=== PATIENT | male | born 1940 | race Caucasian/White ===

== ENCOUNTER 2019-05-19 16:13 | Observation (INO) | payer MEDICARE, BC ==
[2019-05-19] MEDS ORDERED: SODIUM CHLORIDE 0.9% 500 ML 500 ML IV STA (16:31)
[2019-05-19] MEDS ORDERED: SODIUM CHLORIDE 0.9% 1,000 ML IV STA ×2 (16:31)
[2019-05-19] MEDS ORDERED: DEXAMETHASONE SOD PHOSPHATE 10 MG/ML 1 ML VIAL IV STA (16:32)
[2019-05-19] MEDS ORDERED: MORPHINE SULFATE 4 MG/ML SYRINGE IVP STA (17:01)
[2019-05-19 17:27] LABS: HCT 51.3 % (39.0-53.0); HGB 17.8 gm/dL (13.0-17.5); MCH 32.2 pg (25.0-35.0); MCHC 34.8 g/dL (31.0-37.0); MCV 92.7 fL (80.0-100.0); Mean Platelet Volume 8.2; Platelet Count 204 k/uL (150-450); RBC 5.53 m/uL (4.30-5.90); RDW 12.9 % (11.5-15.5); WBC 18.3 k/uL (3.8-10.6)
[2019-05-19 17:34] LABS: ALT 20 U/L (21-72); AST 39 U/L (17-59); African American GFR (CKD) >90 (>60 ml/min/1.73 sqM); Albumin 4.9 g/dL (3.5-5.0); Alkaline Phosphatase 65 U/L (38-126); Anion Gap 13 mmol/L; Blood Urea Nitrogen 21 mg/dL (9-20); Calcium 9.9 mg/dL (8.4-10.2); Carbon Dioxide 25 mmol/L (22-30); Chloride 104 mmol/L (98-107); Glucose 115 mg/dL (74-99); Magnesium 2.2 mg/dL (1.6-2.3); Phosphorus 2.7 mg/dL (2.5-4.5); Sodium 142 mmol/L (137-145); Total Bilirubin 1.3 mg/dL (0.2-1.3); Total Protein 9.1 g/dL (6.3-8.2)
[2019-05-19 17:35] LABS: Potassium 4.2 mmol/L (3.5-5.1)
[2019-05-19 17:45] LABS: C Reactive Protein 20.8 mg/L (<10.0)
[2019-05-19 17:55] LABS: Lymphocytes # (M) 6.95 k/uL (1.0-4.8); Neutrophils % (M) 62 %; Nucleated Red Blood Cells 0 /100 WBC (0-0); Total Cells Counted 100
--- NOTE | 2019-05-19 18:10 | XR ---
EXAMINATION TYPE: XR chest 2V DATE OF EXAM: 05/19/2019 COMPARISON: NONE HISTORY: Fever and cough TECHNIQUE: Frontal and lateral views of the chest are obtained. FINDINGS: Heart size is normal. 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 Lungs are clear. There is no heart failure. There is no pleural effusion. Bony thorax appears intact. IMPRESSION: No active cardiopulmonary disease. Aneurysmal changes of the aortic arch.
--- NOTE | 2019-05-19 18:15 | ED ---
Headache HPI - General Chief Complaint: Headache Stated Complaint: POSS VIRAL MENANGITIS, SENT BY DR AVILA Time Seen by Provider: 05/19/19 16:28 Source: RN notes reviewed, old records reviewed Mode of arrival: ambulatory Limitations: no limitations - History of Present Illness Initial Comments: This is a 78-year-old male the ER for evaluation. Patient resents today for evaluation regards to headache. Occasional fevers. Sore throat. Neck pains worse the last 2 days. Patient has not been feeling himself for about a week. This patient was seen by his primary care sent ER for evaluation of headache. Patient has no recent travel history or sick contacts. Patient otherwise the neck pain not complaining of a sore throat no cough no congestion no nausea vomiting or diarrhea MD Complaint: headache, other (Neck pain) -: week(s) Onset Description: gradual Location: neck Severity: moderate Severity scale (1-10): 7 Quality: aching, sharp Consistency: constant Improves With: nothing Worsens With: none Associated Symptoms: fever, neck stiffness, weakness Other Symptoms: malaise Treatments Prior to Arrival: none - Related Data Home Medications Medication Instructions Recorded Confirmed Amino Acids 700 mg PO BID 05/19/19 05/19/19 Aspirin [Adult Low Dose Aspirin EC] 162 mg PO DAILY 05/19/19 05/19/19 Atorvastatin [Lipitor] 40 mg PO DAILY 05/19/19 05/19/19 Lisinopril-Hctz 20-12.5 mg 1 tab PO DAILY 05/19/19 05/19/19 [Zestoretic 20-12.5] Multivitamins, Thera [Multivitamin 1 tab PO DAILY 05/19/19 05/19/19 (formulary)] Allergies Allergy/AdvReac Type Severity Reaction Status Date / Time Tetanus Vaccines and Toxoid Allergy Unknown Verified 05/19/19 16:37 Review of Systems ROS Statement: Those systems with pertinent positive or pertinent negative responses have been documented in the HPI. ROS Other: All systems not noted in ROS Statement are negative. Past Medical History Past Medical History: Coronary Artery Disease (CAD), Hyperlipidemia, Hypertension History of Any Multi-Drug Resistant Organisms: None Reported Past Surgical History: Coronary Bypass/CABG, Heart Catheterization With Stent Additional Past Surgical History / Comment(s): Triple A Past Psychological History: No Psychological Hx Reported Smoking Status: Never smoker Past Alcohol Use History: Occasional Past Drug Use History: None Reported General Exam Limitations: no limitations General appearance: alert, in no apparent distress Head exam: Present: atraumatic, normocephalic, normal inspection Eye exam: Present: normal appearance, PERRL, EOMI. Absent: scleral icterus, conjunctival injection, periorbital swelling ENT exam: Present: normal exam, mucous membranes moist Neck exam: Absent: tenderness, meningismus, full ROM (Decreased range of motion patient's neck does appear to be painful when he moves his head, negative Kernig negative Brudzinski), lymphadenopathy Respiratory exam: Present: normal lung sounds bilaterally. Absent: respiratory distress, wheezes, rales, rhonchi, stridor Cardiovascular Exam: Present: regular rate, normal rhythm, normal heart sounds. Absent: systolic murmur, diastolic murmur, rubs, gallop, clicks GI/Abdominal exam: Present: soft, normal bowel sounds. Absent: distended, tenderness, guarding, rebound, rigid Extremities exam: Present: normal inspection, full ROM, normal capillary refill. Absent: tenderness, pedal edema, joint swelling, calf tenderness Back exam: Present: normal inspection Neurological exam: Present: alert, oriented X3, CN II-XII intact Psychiatric exam: Present: normal affect, normal mood Skin exam: Present: warm, dry, intact, normal color. Absent: rash Course Vital Signs 05/19/19 05/19/19 05/19/19 16:23 19:37 20:55 Temperature 99.1 F Pulse Rate 63 89 71 Respiratory 20 18 18 Rate Blood Pressure 154/81 131/88 120/78 O2 Sat by Pulse 99 96 98 Oximetry - Reevaluation(s) Reevaluation #1: 05/19/19 18:14 Medical record is reviewed Reevaluation #2: 05/19/19 22:14 patient feeling better and neck pain is controlled Procedures - Lumbar Puncture Consent Obtained: verbal consent Indication for Procedure: headache, fever work up Patient Position: sitting upright/leaning forward Skin Prep: Povidone-Iodine 1% Local Anesthetic Used: Lidocaine 1% Spinal Needle Gauge: 24G Spinal Needle Length: 3in Interspace Used: L3-L4 Fluid Initially Obtained: clear Complications: none Patient Tolerated Procedure: well Medical Decision Making - Medical Decision Making 78 male the ER for evaluation patient resents today for evaluation of neck pain fever 7 to rule out meningitis CSF is clean, patient be admitted for infectious disease consult neck pain - Lab Data Result diagrams: 05/19/19 16:50 05/19/19 16:50 Lab Results 05/19/19 05/19/19 05/19/19 Range/Units 16:50 16:50 16:50 WBC 18.3 H (3.8-10.6) k/uL RBC 5.53 (4.30-5.90) m/uL Hgb 17.8 H (13.0-17.5) gm/dL Hct 51.3 (39.0-53.0) % MCV 92.7 (80.0-100.0) fL MCH 32.2 (25.0-35.0) pg MCHC 34.8 (31.0-37.0) g/dL RDW 12.9 (11.5-15.5) % Plt Count 204 (150-450) k/uL Neutrophils % (Manual) 62 % Lymphocytes % (Manual) 38 % Neutrophils # (Manual) 11.35 H (1.3-7.7) k/uL Lymphocytes # (Manual) 6.95 H (1.0-4.8) k/uL Nucleated RBCs 0 (0-0) /100 WBC Manual Slide Review Performed RBC Morphology Normal Sodium 142 (137-145) mmol/L Potassium 4.2 (3.5-5.1) mmol/L Chloride 104 (98-107) mmol/L Carbon Dioxide 25 (22-30) mmol/L Anion Gap 13 mmol/L BUN 21 H (9-20) mg/dL Creatinine 0.68 (0.66-1.25) mg/dL Est GFR (CKD-EPI)AfAm >90 (>60 ml/min/1.73 sqM) Est GFR (CKD-EPI)NonAf >90 (>60 ml/min/1.73 sqM) Glucose 115 H (74-99) mg/dL Lactic Ac Sepsis Rflx Plasma Lactic Acid Jose Ramon (0.7-2.0) mmol/L Calcium 9.9 (8.4-10.2) mg/dL Phosphorus 2.7 (2.5-4.5) mg/dL Magnesium 2.2 (1.6-2.3) mg/dL Total Bilirubin 1.3 (0.2-1.3) mg/dL AST 39 (17-59) U/L ALT 20 L (21-72) U/L Alkaline Phosphatase 65 (38-126) U/L C-Reactive Protein 20.8 H (<10.0) mg/L Total Protein 9.1 H (6.3-8.2) g/dL Albumin 4.9 (3.5-5.0) g/dL Urine Color Urine Appearance (Clear) Urine pH (5.0-8.0) Ur Specific [place] (1.001-1.035) Urine Protein (Negative) Urine Glucose (UA) (Negative) Urine Ketones (Negative) Urine Blood (Negative) Urine Nitrite (Negative) Urine Bilirubin (Negative) Urine Urobilinogen (<2.0) mg/dL Ur Leukocyte Esterase (Negative) CSF Tube Number CSF Volume CSF Appearance CSF Color CSF RBC (0-10) u/L CSF Tot Nucleated Cells (0-5) u/L CSF Crenated Cells % CSF Fresh RBCs % CSF Glucose (40-70) mg/dL CSF Total Protein (12-60) mg/dL Influenza Type A RNA Not Detected (Not Detectd) Influenza Type B (PCR) Not Detected (Not Detectd) Group A Strep Rapid (Negative) 05/19/19 05/19/19 05/19/19 Range/Units 16:50 16:50 17:33 WBC (3.8-10.6) k/uL RBC (4.30-5.90) m/uL Hgb (13.0-17.5) gm/dL Hct (39.0-53.0) % MCV (80.0-100.0) fL MCH (25.0-35.0) pg MCHC (31.0-37.0) g/dL RDW (11.5-15.5) % Plt Count (150-450) k/uL Neutrophils % (Manual) % Lymphocytes % (Manual) % Neutrophils # (Manual) (1.3-7.7) k/uL Lymphocytes # (Manual) (1.0-4.8) k/uL Nucleated RBCs (0-0) /100 WBC Manual Slide Review RBC Morphology Sodium (137-145) mmol/L Potassium (3.5-5.1) mmol/L Chloride (98-107) mmol/L Carbon Dioxide (22-30) mmol/L Anion Gap mmol/L BUN (9-20) mg/dL Creatinine (0.66-1.25) mg/dL Est GFR (CKD-EPI)AfAm (>60 ml/min/1.73 sqM) Est GFR (CKD-EPI)NonAf (>60 ml/min/1.73 sqM) Glucose (74-99) mg/dL Lactic Ac Sepsis Rflx Y Plasma Lactic Acid Jose Ramon 2.1 H* (0.7-2.0) mmol/L Calcium (8.4-10.2) mg/dL Phosphorus (2.5-4.5) mg/dL Magnesium (1.6-2.3) mg/dL Total Bilirubin (0.2-1.3) mg/dL AST (17-59) U/L ALT (21-72) U/L Alkaline Phosphatase (38-126) U/L C-Reactive Protein (<10.0) mg/L Total Protein (6.3-8.2) g/dL Albumin (3.5-5.0) g/dL Urine Color Urine Appearance (Clear) Urine pH (5.0-8.0) Ur Specific [place] (1.001-1.035) Urine Protein (Negative) Urine Glucose (UA) (Negative) Urine Ketones (Negative) Urine Blood (Negative) Urine Nitrite (Negative) Urine Bilirubin (Negative) Urine Urobilinogen (<2.0) mg/dL Ur Leukocyte Esterase (Negative) CSF Tube Number CSF Volume CSF Appearance CSF Color CSF RBC (0-10) u/L CSF Tot Nucleated Cells (0-5) u/L CSF Crenated Cells % CSF Fresh RBCs % CSF Glucose (40-70) mg/dL CSF Total Protein (12-60) mg/dL Influenza Type A RNA (Not Detectd) Influenza Type B (PCR) (Not Detectd) Group A Strep Rapid Negative (Negative) 05/19/19 05/19/19 05/19/19 Range/Units 19:34 20:07 21:13 WBC (3.8-10.6) k/uL RBC (4.30-5.90) m/uL Hgb (13.0-17.5) gm/dL Hct (39.0-53.0) % MCV (80.0-100.0) fL MCH (25.0-35.0) pg MCHC (31.0-37.0) g/dL RDW (11.5-15.5) % Plt Count (150-450) k/uL Neutrophils % (Manual) % Lymphocytes % (Manual) % Neutrophils # (Manual) (1.3-7.7) k/uL Lymphocytes # (Manual) (1.0-4.8) k/uL Nucleated RBCs (0-0) /100 WBC Manual Slide Review RBC Morphology Sodium (137-145) mmol/L Potassium (3.5-5.1) mmol/L Chloride (98-107) mmol/L Carbon Dioxide (22-30) mmol/L Anion Gap mmol/L BUN (9-20) mg/dL Creatinine (0.66-1.25) mg/dL Est GFR (CKD-EPI)AfAm (>60 ml/min/1.73 sqM) Est GFR (CKD-EPI)NonAf (>60 ml/min/1.73 sqM) Glucose (74-99) mg/dL Lactic Ac Sepsis Rflx Plasma Lactic Acid Jose Ramon 0.9 (0.7-2.0) mmol/L Calcium (8.4-10.2) mg/dL Phosphorus (2.5-4.5) mg/dL Magnesium (1.6-2.3) mg/dL Total Bilirubin (0.2-1.3) mg/dL AST (17-59) U/L ALT (21-72) U/L Alkaline Phosphatase (38-126) U/L C-Reactive Protein (<10.0) mg/L Total Protein (6.3-8.2) g/dL Albumin (3.5-5.0) g/dL Urine Color Light Yellow Urine Appearance Clear (Clear) Urine pH 6.0 (5.0-8.0) Ur Specific [place] 1.033 (1.001-1.035) Urine Protein Negative (Negative) Urine Glucose (UA) Negative (Negative) Urine Ketones 1+ H (Negative) Urine Blood Negative (Negative) Urine Nitrite Negative (Negative) Urine Bilirubin Negative (Negative) Urine Urobilinogen <2.0 (<2.0) mg/dL Ur Leukocyte Esterase Negative (Negative) CSF Tube Number 1 CSF Volume 1 CSF Appearance Clear CSF Color Colorless CSF RBC 11 H (0-10) u/L CSF Tot Nucleated Cells 1 (0-5) u/L CSF Crenated Cells 10 % CSF Fresh RBCs 90 % CSF Glucose 71 H (40-70) mg/dL CSF Total Protein 63 H (12-60) mg/dL Influenza Type A RNA (Not Detectd) Influenza Type B (PCR) (Not Detectd) Group A Strep Rapid (Negative) - Radiology Data Radiology results: report reviewed (CT brain C spine - CT soft tissue neck ... CXR is negative for acute disease), image reviewed Disposition Clinical Impression: Neck pain, Fever, Leukocytosis Disposition: ADMITTED IP TO THIS HOSP Condition: Fair Is patient prescribed a controlled substance at d/c from ED?: No Referrals: Lucio Avila MD [Primary Care Provider] - 1-2 days
--- NOTE | 2019-05-19 19:20 | CT ---
EXAMINATION TYPE: CT brain wo con DATE OF EXAM: 05/19/2019 COMPARISON: None HISTORY: ALFARO and neck stiffness x4 days CT DLP: 1111 mGycm Automated exposure control for dose reduction was used. FINDINGS: There is cerebral atrophy. There is no mass effect nor midline shift. There is no sign of intracrania l hemorrhage. There is white matter hypodensity left frontal lobe and left anterior parietal lobe con sistent with chronic small vessel ischemia. There is hypodensity also in the white matter of the occi pital lobes. There is increased density in the middle cerebral arteries bilaterally. The calvarium is intact. IMPRESSION: CEREBRAL ATROPHY AND CHRONIC SMALL VESSEL ISCHEMIA. HIGH ATTENUATION IN THE MIDDLE CEREBRAL ARTERIES COULD RELATE TO SLOW FLOW OR EVEN ARTERIAL THROMBOSIS. NO INTRACRANIAL HEMORRHAGE.
--- NOTE | 2019-05-19 19:28 | CT ---
EXAMINATION TYPE: CT soft tissue neck w con DATE OF EXAM: 05/19/2019 6:59 PM COMPARISON: HISTORY: ALFARO and neck stiffness x4 days CT DLP: 300 mGycm Automated exposure control for dose reduction was used. CONTRAST: CT scan of the neck is performed following with IV Contrast, patient injected with 100 mL of Isovue 3 00. Axial images are obtained, coronal and sagittal reformatted images are reviewed. FINDINGS: There is aneurysm of the aortic arch. The ascending aorta measures up to 5 cm. There is no sign of di ssection. There is normal branching pattern of the great vessels. There is arterial flow in the subcl lazaro arteries. There is arterial flow in the carotid and vertebral arteries bilaterally. Left verteb ral artery is larger than the right. There is large right jugular vein. Thyroid gland is symmetric. There is no significant cervical adenopathy. Parotid glands are symmetric . The submandibular salivary glands are symmetric. Epiglottis appears normal. Subglottic trachea appears normal. Tonsils appear normal. The tongue appea rs normal. There is narrowing of the disc spaces at C5-6 C6-7. Vertebra have normal alignment. There is no cervical spine fracture. Skull base is intact. There is mucosal thickening in the maxillary and ethmoid air cells. IMPRESSION: Negative CT scan of the cervical soft tissues. Atherosclerotic vascular disease. There is more than 5 0% stenosis of the origin of the left internal carotid artery. 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
[2019-05-19 19:50] LABS: Appearance,Urine Clear (Clear); Bilirubin,Urine Negative (Negative); Blood,Urine Negative (Negative); Color,Urine Light Yellow; Glucose,Urine (UA) Negative (Negative); Ketones,Urine 1+ (Negative); Leukocyte Esterase,Urine Negative (Negative); Nitrite,Urine Negative (Negative); Protein,Urine Negative (Negative); Specific Gravity,Urine 1.033 (1.001-1.035); Urobilinogen,Urine <2.0 mg/dL (<2.0)
[2019-05-19] MEDS ORDERED: KETOROLAC 30 MG/ML 1 ML VIAL IVP STA (19:50)
[2019-05-19] MEDS ORDERED: MORPHINE SULFATE 4 MG/ML SYRINGE IVP PRN (19:50)
[2019-05-19 21:45] LABS: Glucose,CSF 71 mg/dL (40-70); Total Protein,CSF 63 mg/dL (12-60)
[2019-05-19 21:55] LABS: Appearance,CSF Clear; CSF Tube Volume 1
[2019-05-19 21:56] LABS: Nucleated Cells, CSF 1 u/L (0-5); Red Blood Cell,CSF 11 u/L (0-10)
[2019-05-19 21:59] LABS: CSF Tube Number 1
[2019-05-19 22:00] LABS: Red Blood Cell, CSF Fresh 90 %
[2019-05-19 22:01] LABS: Red Blood Cell, CSF Crenated 10 %
[2019-05-19] MEDS: SODIUM CHLORIDE 0.9% 1,000 ML IV SCH (22:58)
[2019-05-19] MEDS: SODIUM CHLORIDE 0.9% 500 ML 500 ML IV SCH ×2 (23:04→23:51)
[2019-05-19 23:48] VITALS: BMI 24.6
[2019-05-20] MEDS: SODIUM CHLORIDE 0.9% 1,000 ML IV SCH ×3 (05:13→22:54)
[2019-05-20] MEDS ORDERED: ENOXAPARIN 40 MG/0.4 ML SYRINGE SQ SCH (09:00)
[2019-05-20 12:21] LABS: HCT 41.4 % (39.0-53.0); MCH 32.1 pg (25.0-35.0); MCHC 34.3 g/dL (31.0-37.0); MCV 93.7 fL (80.0-100.0); Mean Platelet Volume 7.3; Platelet Count 225 k/uL (150-450); RBC 4.41 m/uL (4.30-5.90); RDW 12.9 % (11.5-15.5); WBC 17.7 k/uL (3.8-10.6)
[2019-05-20 12:23] LABS: HGB 14.2 gm/dL (13.0-17.5)
[2019-05-20 13:21] LABS: Band Neutrophils % 1 %; Lymphocytes # (M) 7.26 k/uL (1.0-4.8); Monocytes # (M) 1.42 k/uL (0-1.0); Neutrophils % (M) 50 %; Nucleated Red Blood Cells 0 /100 WBC (0-0); Total Cells Counted 100
[2019-05-20 13:40] LABS: Erythrocyte Sedimentation Rate 24 mm/hr (0-15)
--- NOTE | 2019-05-20 14:48 | P.HPIM ---
History of Present Illness H&P Date: 05/20/19 78 years old male with a shot of Dr. Avila with past medical history of coronary artery disease state "CABG, hyperlipidemia, hypertension comes in after being evaluated as outpatient by Dr. Avila for severe headache for the past 3 days. Patient also endorses burning on legs sensation between his shoulder blades associated with stiff neck and headache for the past 3 days. He also endorses cold and congestion for the past 1 week. He still continues to have cough with phlegm production, for the past few weeks. On evaluation patient headache has improved since yesterday. Lumbar puncture was done in the ER with the increased protein and normal glucose with the normal WBCs. Infecti ous disease was consulted. CT head was negative for any acute etiology. Cerebral atrophy and chronic small vessel ischemia noted with high attenuation in the middle cerebral arteries suggestive of slow flow or arterial thrombosis. Neurology is not available for the weekend. Infectious disease consulted CTA head and neck ordered to evaluate for arterial thrombosis. On labs evaluation patient does have elevated CRP and ESR. Leukocytosis of 11,000. Review of Systems Constitutional: Reports fatigue, Reports fever, Reports lethargy, Reports poor appetite Eyes: denies pain, denies photophobia, denies loss of peripheral vision, denies loss of vision Ears: deny: ear discharge, earache Ears, nose, mouth and throat: Reports headache, Reports hoarseness, Reports nasal congestion, Reports nasal discharge, Reports neck fullness/pressure, Reports nose pain, Reports post-nasal drip, Reports sinus pressure, Reports sore throat Cardiovascular: Reports lightheadedness, Reports shortness of breath, Denies chest pain, Denies claudication, Denies decreased exercise tolerance, Denies dyspnea on exertion, Denies edema, Denies high blood pressure, Denies leg edema, Denies palpitations, Denies rapid heart beat Respiratory: Reports congestion, Reports cough, Reports cough with sputum, Reports dyspnea, Reports excessive sputum, Denies hemoptysis, Denies home oxygen, Denies wheezing Gastrointestinal: Denies abdominal pain, Denies bloating, Denies BRBPR, Denies change in bowel habits, Denies constipation, Denies nausea, Denies vomiting Genitourinary: Denies hematuria, Denies incontinence, Denies urinary frequency, Denies urinary hesitancy, Denies urinary retention Musculoskeletal: Reports morning stiffness, Reports neck pain, Reports neck stiffness Neurological: Reports burning pain, Reports headaches, Denies aphasia, Denies a taxia, Denies balance difficulties, Denies change in mentation, Denies change in speech, Denies confusion, Denies lack of coordination, Denies loss of vision, Denies memory loss, Denies motor disturbance, Denies numbness, Denies seizures, Denies tingling, Denies transient paralysis, Denies weakness, Denies visual changes Psychiatric: Denies anxiety attacks, Denies difficulty concentrating, Denies hallucinations, Denies memory loss, Denies mood swings, Denies sleep distur bances Endocrine: Denies cold intolerance, Denies deepening of the voice, Denies excessive sweating, Denies excessive thirst, Denies high blood sugars, Denies increase in ring/shoe/hat size, Denies nocturia, Denies palpitations, Denies recent glucocorticoid use Past Medical History Past Medical History: Coronary Artery Disease (CAD), Hyperlipidemia, Hypertension History of Any Multi-Drug Resistant Organisms: None Reported Past Surgical History: Coronary Bypass/CABG, Heart Catheterization With Stent Additional Past Surgical History / Comment(s): Triple A Past Anesthesia/Blood Transfusion Reactions: No Reported Reaction Date of Last Stent Placement:: unable to recall Past Psychological History: No Psychological Hx Reported Smoking Status: Never smoker Past Alcohol Use History: Occasional Past Drug Use History: None Reported - Past Family History Mother Family Medical History: Cancer Father Family Medical History: No Reported History Medications and Allergies Home Medications Medication Instructions Recorded Confirmed Type Amino Acids 700 mg PO BID 05/19/19 05/19/19 History Aspirin [Adult Low Dose Aspirin EC] 162 mg PO DAILY 05/19/19 05/19/19 History Atorvastatin [Lipitor] 40 mg PO DAILY 05/19/19 05/19/19 History Lisinopril-Hctz 20-12.5 mg 1 tab PO DAILY 05/19/19 05/19/19 History [Zestoretic 20-12.5] Multivitamins, Thera [Multivitamin 1 tab PO DAILY 05/19/19 05/19/19 History (formulary)] Allergies Allergy/AdvReac Type Severity Reaction Status Date / Time Tetanus Vaccines and Toxoid Allergy Unknown Verified 05/19/19 16:37 Physical Exam Vitals: Vital Signs Temp Pulse Pulse Resp BP BP Pulse Ox 05/20/19 06:53 98.1 F 50 L 18 95/58 94 L 05/20/19 01:28 98.0 F 51 L 17 129/68 98 05/19/19 23:09 98.9 F 64 17 05/19/19 22:15 58 L 18 114/76 97 05/19/19 20:55 71 18 120/78 98 05/19/19 19:37 89 18 131/88 96 05/19/19 16:23 99.1 F 63 20 154/81 99 Intake and Output 05/19/19 05/20/19 05/20/19 22:59 06:59 14:59 Intake Total 358 Balance 358 Intake: Oral 358 Other: # Voids 1 1 Weight 84.822 kg - Constitutional General appearance: cooperative, no acute distress, obese - EENT Eyes: anicteric sclerae, PERRLA, normal appearance ENT: hearing grossly normal - Neck Neck: no lymphadenopathy, normal ROM, no other, no rigidity, no stridor, no thyromegaly - Respiratory Respiratory: bilateral: Decreased air entry with Rales bilaterally - Cardiovascular Rhythm: regular Heart sounds: normal: S1, S2 Abnormal Heart Sounds: no systolic murmur, no diastolic murmur, no rub, no S3 Gallop, no S4 Gallop, no click, no other - Gastrointestinal General gastrointestinal: normal bowel sounds, soft - Integumentary Integumentary: no rash - Neurologic Neurologic: CNII-XII intact point tenderness noted in C6-C7 and T1 to T4 - Musculoskeletal Musculoskeletal: gait normal, strength equal bilaterally normal coordination no kerning signs no nystagmus no sensory or motor deficit noted - Psychiatric Psychiatric: A&O x's 3, appropriate affect Results CBC & Chem 7: 05/20/19 11:12 05/19/19 16:50 Labs: Abnormal Lab Results - Last 24 Hours (Table) 05/19/19 05/19/19 05/19/19 Range/Units 16:50 16:50 16:50 WBC 18.3 H (3.8-10.6) k/uL Hgb 17.8 H (13.0-17.5) gm/dL Neutrophils # (Manual) 11.35 H (1.3-7.7) k/uL Lymphocytes # (Manual) 6.95 H (1.0-4.8) k/uL Monocytes # (Manual) (0-1.0) k/uL ESR (0-15) mm/hr BUN 21 H (9-20) mg/dL Glucose 115 H (74-99) mg/dL Plasma Lactic Acid Jose Ramon 2.1 H* (0.7-2.0) mmol/L ALT 20 L (21-72) U/L C-Reactive Protein 20.8 H (<10.0) mg/L Total Protein 9.1 H (6.3-8.2) g/dL Urine Ketones (Negative) CSF RBC (0-10) u/L CSF Glucose (40-70) mg/dL CSF Total Protein (12-60) mg/dL 05/19/19 05/19/19 05/20/19 Range/Units 19:34 20:07 11:12 WBC 17.7 H (3.8-10.6) k/uL Hgb (13.0-17.5) gm/dL Neutrophils # (Manual) 9.00 H (1.3-7.7) k/uL Lymphocytes # (Manual) 7.26 H (1.0-4.8) k/uL Monocytes # (Manual) 1.42 H (0-1.0) k/uL ESR 24 H (0-15) mm/hr BUN (9-20) mg/dL Glucose (74-99) mg/dL Plasma Lactic Acid Jose Ramon (0.7-2.0) mmol/L ALT (21-72) U/L C-Reactive Protein (<10.0) mg/L Total Protein (6.3-8.2) g/dL Urine Ketones 1+ H (Negative) CSF RBC 11 H (0-10) u/L CSF Glucose 71 H (40-70) mg/dL CSF Total Protein 63 H (12-60) mg/dL 05/20/19 Range/Units 11:12 WBC (3.8-10.6) k/uL Hgb (13.0-17.5) gm/dL Neutrophils # (Manual) (1.3-7.7) k/uL Lymphocytes # (Manual) (1.0-4.8) k/uL Monocytes # (Manual) (0-1.0) k/uL ESR (0-15) mm/hr BUN (9-20) mg/dL Glucose (74-99) mg/dL Plasma Lactic Acid Jose Ramon (0.7-2.0) mmol/L ALT (21-72) U/L C-Reactive Protein 30.4 H (<10.0) mg/L Total Protein (6.3-8.2) g/dL Urine Ketones (Negative) CSF RBC (0-10) u/L CSF Glucose (40-70) mg/dL CSF Total Protein (12-60) mg/dL Microbiology - Last 24 Hours (Table) 05/19/19 20:07 CSF Gram Stain - Preliminary Cerebral Spinal Fluid CSF Culture - Preliminary 05/19/19 16:50 Group A Strep Throat Culture - Preliminary Throat Thrombosis Risk Factor Assmnt - DVT/VTE Prophylaxis DVT/VTE Prophylaxis: Pharmacologic Prophylaxis ordered - Choose All That Apply Any of the Below Risk Factors Present?: No Other Risk Factors: Yes Each Risk Factor Represents 3 Points: Age 75 years or older Other congenital or acquired thrombophilia - If yes, enter type in comment: No Thrombosis Risk Factor Assessment Total Risk Factor Score: 3 Thrombosis Risk Factor Assessment Level: Moderate Risk Assessment and Plan Plan: #1 headache secondary to aseptic meningitis Positive for neck stiffness and severe headache. Positive for upper respiratory as well as photophobia and lightheadedness. IV fluids at [address] head negative for any acute process but does said arterial thrombosis. Infectious disease consulted. ESR and CRP elevated. Lumbar puncture positive for elevated protein and a normal glucose concentration. Encephalitis panel and HSV-1 and 2 percent. Patient does have positive history of shingles. No episode of fever since patient is in the hospital. 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 CTA head and neck ordered.
[2019-05-20 17:02] LABS: African American GFR (CKD) >90 (>60 ml/min/1.73 sqM); Blood Urea Nitrogen 22 mg/dL (9-20)
--- NOTE | 2019-05-20 21:06 | CT ---
EXAMINATION TYPE: CT angio head neck DATE OF EXAM: 05/20/2019 HISTORY: Arterial thrombosis. Neck pain. COMPARISON: CT DLP: 577.2 mGycm. Automated Exposure Control for Dose Reduction was Utilized. TECHNIQUE: CTA scan of the neck is performed with IV Contrast, patient injected with 65ml mL of Isov ue 370, axial images are obtained, coronal and sagittal reformatted images are reviewed. Three-D adryan nstructed images are created on an independent workstation and reviewed. Source images are reviewed. FINDINGS: Carotid/Vascular Structures: There is a three-vessel arch. The vertebral artery may be dominant. The common carotid arteries have atheromatous plaquing at the carotid bifurcations greater on the left. T his is approximately 50% narrowed at the bifurcation as measured in the axial plane. The right caroti d bifurcation is more widely patent. Note is made of vascular calcification in the distal right inter nal carotid artery without significant stenosis. Cervical of Bianchi: Vertebral basilar system appears normal. Posterior cerebral vasculature is unrema rkable. Internal carotid arteries bifurcate normally into A1 and M1 segments. A2 segments are normal. The anterior communicating artery is absent. The posterior communicating arteries are absent. Other: Lung apices as visualized are clear. Portion of the thyroid as visualized is normal. The right jugular vein is dominant. Small retention cysts are within the maxillary sinuses. Some mucosal thick ening is within the visualized ethmoid air cells. Degenerative disc changes are within the cervical s pine. IMPRESSION: 1. Approximately 50% narrowing left internal carotid artery origin. 2. Normal [place] of [place]
--- NOTE | 2019-05-21 00:11 | P.CONS ---
History of Present Illness - Reason for Consult Consult date: 05/20/19 meningitis Requesting physician: Gaurav Roque - Chief Complaint headache and neck pain x 3 days - History of Present Illness Patient is 78-year male who has been sent to the ER by his PCP for evaluation of neck pain and headache with the patient symptom has been going on for about 3 days did mention some URI symptoms prior to his symptom of headache started patient describes the headache to be more of a generalized throbbing intensity about 7-8 out of 10 and no radiation patient did have some chills but denies high-grade fever denies having any nausea no vomiting no abdominal pain no diarrhea and no sick contact on presentation to the hospital patient did have elevated white count of 18,[address] of the brain was negative for any bleed chest x-ray was negative patient also have a CT of the soft tissue of the neck which was reported to be normal throat swab was negative for strep patient did have LP completed which shows 11 RBCs 1 WBC protein was elevated at 99 and glucose was normal patient has been started on Rocephin infectious di toyine was consulted for further recommendation regarding antibiotic therapy Review of Systems CONSTITUTIONAL: Positive for weakness. no Fever EYES: No complaint. ENT: as per HPI RESPIRATORY: No complaint. CARDIOVASCULAR: No complaint. GENITOURINARY: No complaint. GASTROINTESTINAL: No complaint. MUSCULOSKELETAL: No complaint. INTEGUMENTARY: No complaint. PSYCHOLOGICAL: No complaint. ENDOCRINE: No complaint. NEUROLOGIC:as per HPI Past Medical History Past Medical History: Coronary Artery Disease (CAD), Hyperlipidemia, Hypertension History of Any Multi-Drug Resistant Organisms: None Reported Past Surgical History: Coronary Bypass/CABG, Heart Catheterization With Stent Additional Past Surgical History / Comment(s): Triple A Past Anesthesia/Blood Transfusion Reactions: No Reported Reaction Date of Last Stent Placement:: unable to recall Past Psychological History: No Psychological Hx Reported Smoking Status: Never smoker Past Alcohol Use History: Occasional Past Drug Use History: None Reported - Past Family History Mother Family Medical History: Cancer Father Family Medical History: No Reported History Medications and Allergies Home Medications Medication Instructions Recorded Confirmed Type Amino Acids 700 mg PO BID 05/19/19 05/19/19 History Aspirin [Adult Low Dose Aspirin EC] 162 mg PO DAILY 05/19/19 05/19/19 History Atorvastatin [Lipitor] 40 mg PO DAILY 05/19/19 05/19/19 History Lisinopril-Hctz 20-12.5 mg 1 tab PO DAILY 05/19/19 05/19/19 History [Zestoretic 20-12.5] Multivitamins, Thera [Multivitamin 1 tab PO DAILY 05/19/19 05/19/19 History (formulary)] Allergies Allergy/AdvReac Type Severity Reaction Status Date / Time Tetanus Vaccines and Toxoid Allergy Unknown Verified 05/19/19 16:37 Physical Exam Vitals: Vital Signs Temp Pulse Pulse Resp BP BP Pulse Ox 05/20/19 06:53 98.1 F 50 L 18 95/58 94 L 05/20/19 01:28 98.0 F 51 L 17 129/68 98 05/19/19 23:09 98.9 F 64 17 05/19/19 22:15 58 L 18 114/76 97 05/19/19 20:55 71 18 120/78 98 05/19/19 19:37 89 18 131/88 96 05/19/19 16:23 99.1 F 63 20 154/81 99 Intake and Output 05/19/19 05/20/19 05/20/19 22:59 06:59 14:59 Intake Total 118 Balance 118 Intake: Oral 118 Other: # Voids 1 1 Weight 84.822 kg GENERAL DESCRIPTION: Elderly male lying in bed, no distress. No tachypnea or accessory muscle of respiration use. HEENT: Shows Pallor , no scleral icterus. Oral mucous membrane is dry. No pharyngeal erythema or thrush NECK: Trachea central, no thyromegaly. LUNGS: Unlabored breathing. Clear to auscultation anteriorly. No wheeze or crackle. HEART: S1, S2, regular rate and rhythm. No loud murmur ABDOMEN: Soft, no tenderness , guarding or rigidity, no organomegaly EXTREMITIES: No edema of feet. SKIN: No rash, no masses palpable. NEUROLOGICAL: The patient is awake, alert, oriented x3, mood and affect normal.no neck rigidity Results CBC & Chem 7: 05/20/19 11:12 05/20/19 16:29 Labs: Abnormal Lab Results - Last 24 Hours (Table) 05/19/19 05/19/19 05/19/19 Range/Units 16:50 16:50 16:50 WBC 18.3 H (3.8-10.6) k/uL Hgb 17.8 H (13.0-17.5) gm/dL Neutrophils # (Manual) 11.35 H (1.3-7.7) k/uL Lymphocytes # (Manual) 6.95 H (1.0-4.8) k/uL BUN 21 H (9-20) mg/dL Glucose 115 H (74-99) mg/dL Plasma Lactic Acid Jose Ramon 2.1 H* (0.7-2.0) mmol/L ALT 20 L (21-72) U/L C-Reactive Protein 20.8 H (<10.0) mg/L Total Protein 9.1 H (6.3-8.2) g/dL Urine Ketones (Negative) CSF RBC (0-10) u/L CSF Glucose (40-70) mg/dL CSF Total Protein (12-60) mg/dL 05/19/19 05/19/19 05/20/19 Range/Units 19:34 20:07 11:12 WBC 17.7 H (3.8-10.6) k/uL Hgb (13.0-17.5) gm/dL Neutrophils # (Manual) (1.3-7.7) k/uL Lymphocytes # (Manual) (1.0-4.8) k/uL BUN (9-20) mg/dL Glucose (74-99) mg/dL Plasma Lactic Acid Jose Ramon (0.7-2.0) mmol/L ALT (21-72) U/L C-Reactive Protein (<10.0) mg/L Total Protein (6.3-8.2) g/dL Urine Ketones 1+ H (Negative) CSF RBC 11 H (0-10) u/L CSF Glucose 71 H (40-70) mg/dL CSF Total Protein 63 H (12-60) mg/dL 05/20/19 Range/Units 11:12 WBC (3.8-10.6) k/uL Hgb (13.0-17.5) gm/dL Neutrophils # (Manual) (1.3-7.7) k/uL Lymphocytes # (Manual) (1.0-4.8) k/uL BUN (9-20) mg/dL Glucose (74-99) mg/dL Plasma Lactic Acid Jose Ramon (0.7-2.0) mmol/L ALT (21-72) U/L C-Reactive Protein 30.4 H (<10.0) mg/L Total Protein (6.3-8.2) g/dL Urine Ketones (Negative) CSF RBC (0-10) u/L CSF Glucose (40-70) mg/dL CSF Total Protein (12-60) mg/dL Microbiology - Last 24 Hours (Table) 05/19/19 20:07 CSF Gram Stain - Preliminary Cerebral Spinal Fluid CSF Culture - Preliminary 05/19/19 16:50 Group A Strep Throat Culture - Preliminary Throat Assessment and Plan Assessment: 1-patient presented to the hospital patient presented to the hospital with headache in this patient who did have LP completed which did show some white cells of 21 and elevated protein with concern for possible aseptic meningitis clinically doubt bacterial meningitis 2-patient with neck pain and some URI symptoms with concern for possible pharyngitis that may be responsible for some of his elevated white count Plan: 1-no need for any systemic antibiotic or antiviral for this episode of aseptic meningitis treatment will be supportive this has been explained to the patient and the family and their questions and concerns were answered in layman terms 2-May continue short course of Rocephin for underlying possible pharyngitis We will follow on clinical condition and cultures to further adjust medication if needed Thank you for this consultation we will follow the patient along with you Time with Patient: Greater than 30
[2019-05-21 06:53] LABS: MCH 31.7 pg (25.0-35.0); MCHC 34.2 g/dL (31.0-37.0); MCV 92.6 fL (80.0-100.0); Mean Platelet Volume 7.4; Platelet Count 185 k/uL (150-450); WBC 13.3 k/uL (3.8-10.6)
[2019-05-21 08:02] VITALS: BP 124/73; PULSE 50; RESP 16; TEMP 97.6
[2019-05-21] MEDS ORDERED: LISINOPRIL-HCTZ 20-12.5 MG 1 EACH TAB PO SCH (09:00)
[2019-05-21] MEDS ORDERED: ATORVASTATIN 40 MG TAB PO SCH (09:00)
[2019-05-21] MEDS ORDERED: HEPARIN SODIUM,PORCINE 5,000 UNIT/ML 1 ML VIAL SQ SCH (09:00)
[2019-05-21 09:16] LABS: Eosinophils # (M) 0.13 k/uL (0-0.7); Lymphocytes # (M) 7.05 k/uL (1.0-4.8); Monocytes # (M) 0.53 k/uL (0-1.0); Neutrophils % (M) 42 %; Nucleated Red Blood Cells 0 /100 WBC (0-0); Total Cells Counted 100
[2019-05-21 09:35] LABS: Reactive Lymphocytes Present
[2019-05-21] MEDS: SODIUM CHLORIDE 0.9% 1,000 ML IV SCH (09:37)
--- NOTE | 2019-05-21 14:06 | P.DS ---
Providers Date of admission: 05/19/19 22:12 Attending physician: Gaurav Roque MD Consults: 05/19/19 22:29 Consult Physician Routine Consulting Provider: Tori Rodriguez Consult Reason/Comments: leukocytosis Do you want consulting provider notified?: Yes Primary care physician: Lucio Austin [facility] Course: 78 years old male with a shot of Dr. Avila with past medical history of coronary artery disease state "CABG, hyperlipidemia, hypertension comes in after being evaluated as outpatient by Dr. Avila for severe headache for the past 3 days. Patient also endorses burning on legs sensation between his shoulder blades associated with stiff neck and headache for the past 3 days. He also endorses cold and congestion for the past 1 week. He still continues to have cough with phlegm production, for the past few weeks. On evaluation patient headache has improved since yesterday. Lumbar puncture was done in the ER with the increased protein and normal glucose with the normal WBCs. Infe ctious disease was consulted. CT head was negative for any acute etiology. Cerebral atrophy and chronic small vessel ischemia noted with high attenuation in the middle cerebral arteries suggestive of slow flow or arterial thrombosis. Neurology is not available for the weekend. Infectious disease consulted CTA head and neck ordered to evaluate for arterial thrombosis. On labs evaluation patient does have elevated CRP and ESR. Leukocytosis of 17,000. 05/21 patient examined bedside no episodes of fever overnight complains of some neck stiffness but no headaches no difficulty ambulating patient denies any dizziness or seizure episode. No numbness or tingling any of the extremities does have some of URI symptoms that has improved since yesterday. Patient does have some early bronchitis for which we will need Keflex for 5 days and will follow up with Dr. Avila as outpatient Discharge diagnoses #1 headache secondary to aseptic meningitis #2 early bronchitis #3 history of CLL #4 history of coronary artery disease #5 hypertension #6 hyperlipidemia #7 Middle cerebral artery thrombosis ruled out on CTA neck Home with self-care Patient Condition at Discharge: Fair Plan - Discharge Summary Discharge Rx Participant: Yes New Discharge Prescriptions: New Cephalexin [Keflex] 250 mg PO Q8HR #15 capsule Continue Multivitamins, Thera [Multivitamin (formulary)] 1 tab PO DAILY Lisinopril-Hctz 20-12.5 mg [Zestoretic 20-12.5] 1 tab PO DAILY Atorvastatin [Lipitor] 40 mg PO DAILY Aspirin [Adult Low Dose Aspirin EC] 162 mg PO DAILY Amino Acids 700 mg PO BID Discharge Medication List Amino Acids 700 mg PO BID 05/19/19 [History] Aspirin [Adult Low Dose Aspirin EC] 162 mg PO DAILY 05/19/19 [History] Atorvastatin [Lipitor] 40 mg PO DAILY 05/19/19 [History] Lisinopril-Hctz 20-12.5 mg [Zestoretic 20-12.5] 1 tab PO DAILY 05/19/19 [ History] Multivitamins, Thera [Multivitamin (formulary)] 1 tab PO DAILY 05/19/19 [History] Cephalexin [Keflex] 250 mg PO Q8HR #15 capsule 05/21/19 [Rx] Follow up Appointment(s)/Referral(s): Lucio Avila MD [Primary Care Provider] - 1-2 days Discharge Disposition: HOME SELF-CARE
--- NOTE | 2019-05-21 18:15 | PN ---
PROGRESS NOTE DATE OF SERVICE: 05/21/2019. REASON FOR FOLLOWUP: Headache and possible aseptic meningitis. INTERVAL HISTORY: The patient was seen on rounds early this afternoon. The patient has been afebrile. The patient headache has improved. Still complaining of some neck pain and some sore throat though. No other URI symptoms. No nausea, vomiting. No abdominal pain. No diarrhea. PHYSICAL EXAMINATION: Blood pressure is 124/73 with a pulse of 52, temperature 97.6. He is 97% on room air. General description is an elderly male up in the chair in no distress. HEENT examination minimal pharyngeal erythema. Lungs unlabored breathing. Clear to auscultation anteriorly. Heart S1, S2. Regular rate and rhythm. Abdomen soft, no tenderness. LABS: Hemoglobin is 4.1, white count 13.3. Blood cultures and sputum cultures negative so far. DIAGNOSTIC IMPRESSION AND PLAN: 1. Patient with headache, elevated CSF protein, white count only 1 with a question of possible aseptic meningitis, will be only symptomatic treatment. 2. Possible pharyngitis. Symptomatic treatment or a short course of oral Keflex per admitting team. 3. Close outpatient followup. MMODL / IJN: [id number] /
[2019-05-23 11:51] LABS: VDRL, Qualitative CSF Nonreactive (Nonreactive)
== END 2019-05-21 14:48 | disposition home or self-care (01) ==
LOC: EC 16:13 → 4SSUR 22:12
PROVIDERS: ADMIT Internal Medicine; ATTEND Internal Medicine
DX: G03.0 Nonpyogenic meningitis (principal); J40 Bronchitis, not specified as acute or chronic; Z85.6 Personal history of leukemia; I25.10 Atherosclerotic heart disease of native coronary artery without angina pectoris; I10 Essential (primary) hypertension; E78.5 Hyperlipidemia, unspecified; I66.09 Occlusion and stenosis of unspecified middle cerebral artery; R79.82 Elevated C-reactive protein (CRP); E66.9 Obesity, unspecified; Z68.24 Body mass index [BMI] 24.0-24.9, adult; Z95.1 Presence of aortocoronary bypass graft; Z95.5 Presence of coronary angioplasty implant and graft; Z86.19 Personal history of other infectious and parasitic diseases; Z79.82 Long term (current) use of aspirin; Z79.899 Other long term (current) drug therapy; Z88.7 Allergy status to serum and vaccine; Z80.9 Family history of malignant neoplasm, unspecified
CPT/HCPCS: 96366; 96372 ×2; 62270; 96361; 96365; 96375; 99285; 36415; 94760; 93005; 86592; 84157; 80053; 82945; 85652; 82565; 83605; 83735; 84100; 84520; 85025 ×3; 86140 ×2; 89050; 81003; 87040; 87070; 87205; 87081; 87430; 87502; 84145; 71046; 70496; 70491; 70450; 70498; G0378 ×3; J2270; J1644; J1100; J0696 ×2; J1650; J1885; Q9967 ×2; 87529

== ENCOUNTER 2019-12-11 11:14 | Inpatient (IN) | payer MEDICARE, BC ==
[2019-12-11] MEDS ORDERED: SODIUM CHLORIDE 0.9% 500 ML 500 ML IV STA (11:46)
--- NOTE | 2019-12-11 12:07 | ED ---
General Adult HPI - General Chief complaint: Shortness of Breath Stated complaint: R/O Covid Time Seen by Provider: 12/11/19 11:20 Source: patient, RN notes reviewed Mode of arrival: ambulatory Limitations: no limitations - History of Present Illness Initial comments: 71-year-old male with a past medical history of hyperlipidemia, hypertension, CAD, leukemia presents for shortness of breath. This is been ongoing for the past week or so. Patient also has a nonproductive cough associated with this. Patient states he has had fevers over the past week or 2 on and off. States they have been in the 100s but never to 101. Patient did not take any Tylenol today. Patient denies any chest pain or abdominal pain associated with this shortness of breath. States it worsens on exertion. Patient is concerned he has COVID and would like to be tested Patient has no other complaints at this time including chest pain, abdominal pain, nausea or vomiting, headache, or visual changes. - Related Data Home Medications Medication Instructions Recorded Confirmed Amino Acids 700 mg PO BID 05/19/19 05/19/19 Aspirin [Adult Low Dose Aspirin EC] 162 mg PO DAILY 05/19/19 05/19/19 Atorvastatin [Lipitor] 40 mg PO DAILY 05/19/19 05/19/19 Lisinopril-Hctz 20-12.5 mg 1 tab PO DAILY 05/19/19 05/19/19 [Zestoretic 20-12.5] Multivitamins, Thera [Multivitamin 1 tab PO DAILY 05/19/19 05/19/19 (formulary)] Previous Rx's Medication Instructions Recorded Cephalexin [Keflex] 250 mg PO Q8HR #15 capsule 05/21/19 Allergies Allergy/AdvReac Type Severity Reaction Status Date / Time Tetanus Vaccines and Toxoid Allergy Unknown Verified 05/19/19 16:37 Review of Systems ROS Statement: Those systems with pertinent positive or pertinent negative responses have been documented in the HPI. ROS Other: All systems not noted in ROS Statement are negative. Past Medical History Past Medical History: Coronary Artery Disease (CAD), Hyperlipidemia, Hypertension Additional Past Medical History / Comment(s): leukemia History of Any Multi-Drug Resistant Organisms: None Reported Past Surgical History: Coronary Bypass/CABG, Heart Catheterization With Stent Additional Past Surgical History / Comment(s): Triple A Past Anesthesia/Blood Transfusion Reactions: No Reported Reaction Date of Last Stent Placement:: unable to recall Past Psychological History: No Psychological Hx Reported Smoking Status: Never smoker Past Alcohol Use History: Occasional Past Drug Use History: None Reported - Past Family History Mother Family Medical History: Cancer Father Family Medical History: No Reported History General Exam Limitations: no limitations General appearance: alert, in no apparent distress Head exam: Present: atraumatic, normocephalic, normal inspection Eye exam: Present: normal appearance, PERRL, EOMI. Absent: scleral icterus, conjunctival injection, periorbital swelling ENT exam: Present: normal exam, mucous membranes moist Neck exam: Present: normal inspection, full ROM. Absent: tenderness, meningismus, lymphadenopathy Respiratory exam: Present: normal lung sounds bilaterally. Absent: respiratory distress, wheezes, rales, rhonchi, stridor Cardiovascular Exam: Present: regular rate, normal rhythm, normal heart sounds. Absent: systolic murmur, diastolic murmur, rubs, gallop, clicks GI/Abdominal exam: Present: soft, normal bowel sounds. Absent: distended, tenderness, guarding, rebound, rigid Neurological exam: Present: alert, oriented X3 Psychiatric exam: Present: normal affect, normal mood Course Vital Signs 12/11/19 12/11/19 12/11/19 11:16 12:40 13:03 Temperature 97.4 F L Pulse Rate 58 L 134 H 137 H Respiratory 18 18 18 Rate Blood Pressure 128/77 94/73 103/78 O2 Sat by Pulse 95 92 L 100 Oximetry 12/11/19 12/11/19 13:54 14:30 Temperature Pulse Rate 131 H 103 H Respiratory 18 18 Rate Blood Pressure 105/70 109/79 O2 Sat by Pulse 100 98 Oximetry EKG Findings - EKG Comments: EKG Findings:: Atrial fibrillation with RVR, ventricular rate 134, QRS duration 82, QTC 480 Medical Decision Making - Medical Decision Making Patient with a past medical history of coronary artery disease, hyperlipidemia, hypertension, leukemia presents to the emergency department for shortness of breath, cough, intermittent fevers. This is been ongoing for a week or so. On presentation vitals are stable. Heart rate is in the 50s. Blood pressure is normal. About an hour and a half. Patient states she went into A. fib RVR with a heart rate in the 140s. Blood pressure did drop a bit to the 90s. However patient was bolused with 1.5 L and this did improve. He was started on a low- dose Cardizem drip. He was also heparinized. Patient is stable. He was negative for coronavirus. Patient will be admitted with cardiology consultation and an echo. Dr. Chan spoke with Dr. Avila about this who does accept this admission. - Lab Data Result diagrams: 12/11/19 12:12 12/11/19 13:20 Lab Results 12/11/19 12/11/19 12/11/19 Range/Units 12:11 12:11 12:11 WBC (3.8-10.6) k/uL RBC (4.30-5.90) m/uL Hgb (13.0-17.5) gm/dL Hct (39.0-53.0) % MCV (80.0-100.0) fL MCH (25.0-35.0) pg MCHC (31.0-37.0) g/dL RDW (11.5-15.5) % Plt Count (150-450) k/uL Neutrophils % (Manual) % Lymphocytes % (Manual) % Monocytes % (Manual) % Neutrophils # (Manual) (1.3-7.7) k/uL Lymphocytes # (Manual) (1.0-4.8) k/uL Monocytes # (Manual) (0-1.0) k/uL Nucleated RBCs (0-0) /100 WBC Manual Slide Review RBC Morphology PT 11.1 (9.0-12.0) sec INR 1.1 (<1.2) APTT 25.4 (22.0-30.0) sec Sodium 140 (137-145) mmol/L Potassium 5.7 H (3.5-5.1) mmol/L Chloride 106 (98-107) mmol/L Carbon Dioxide 23 (22-30) mmol/L Anion Gap 11 mmol/L BUN 28 H (9-20) mg/dL Creatinine 1.01 (0.66-1.25) mg/dL Est GFR (CKD-EPI)AfAm 82 (>60 ml/min/1.73 sqM) Est GFR (CKD-EPI)NonAf 71 (>60 ml/min/1.73 sqM) Glucose 157 H (74-99) mg/dL Calcium 9.7 (8.4-10.2) mg/dL Magnesium 2.2 (1.6-2.3) mg/dL Total Bilirubin 1.1 (0.2-1.3) mg/dL AST 26 (17-59) U/L ALT 14 (4-49) U/L Alkaline Phosphatase 75 (38-126) U/L Troponin I <0.012 (0.000-0.034) ng/mL NT-Pro-B Natriuret Pep pg/mL Total Protein 7.1 (6.3-8.2) g/dL Albumin 3.8 (3.5-5.0) g/dL Coronavirus (PCR) (Not Detectd) 12/11/19 12/11/19 12/11/19 Range/Units 12:11 12:12 13:20 WBC 22.8 H (3.8-10.6) k/uL RBC 4.79 (4.30-5.90) m/uL Hgb 13.8 (13.0-17.5) gm/dL Hct 43.3 (39.0-53.0) % MCV 90.5 (80.0-100.0) fL MCH 28.9 (25.0-35.0) pg MCHC 31.9 (31.0-37.0) g/dL RDW 14.5 (11.5-15.5) % Plt Count 415 (150-450) k/uL Neutrophils % (Manual) 56 % Lymphocytes % (Manual) 39 % Monocytes % (Manual) 5 % Neutrophils # (Manual) 12.77 H (1.3-7.7) k/uL Lymphocytes # (Manual) 8.89 H (1.0-4.8) k/uL Monocytes # (Manual) 1.14 H (0-1.0) k/uL Nucleated RBCs 0 (0-0) /100 WBC Manual Slide Review Performed RBC Morphology Normal PT (9.0-12.0) sec INR (<1.2) APTT (22.0-30.0) sec Sodium (137-145) mmol/L Potassium 4.5 (3.5-5.1) mmol/L Chloride (98-107) mmol/L Carbon Dioxide (22-30) mmol/L Anion Gap mmol/L BUN (9-20) mg/dL Creatinine (0.66-1.25) mg/dL Est GFR (CKD-EPI)AfAm (>60 ml/min/1.73 sqM) Est GFR (CKD-EPI)NonAf (>60 ml/min/1.73 sqM) Glucose (74-99) mg/dL Calcium (8.4-10.2) mg/dL Magnesium (1.6-2.3) mg/dL Total Bilirubin (0.2-1.3) mg/dL AST (17-59) U/L ALT (4-49) U/L Alkaline Phosphatase (38-126) U/L Troponin I (0.000-0.034) ng/mL NT-Pro-B Natriuret Pep 5400 pg/mL Total Protein (6.3-8.2) g/dL Albumin (3.5-5.0) g/dL Coronavirus (PCR) (Not Detectd) 12/11/19 Range/Units 13:33 WBC (3.8-10.6) k/uL RBC (4.30-5.90) m/uL Hgb (13.0-17.5) gm/dL Hct (39.0-53.0) % MCV (80.0-100.0) fL MCH (25.0-35.0) pg MCHC (31.0-37.0) g/dL RDW (11.5-15.5) % Plt Count (150-450) k/uL Neutrophils % (Manual) % Lymphocytes % (Manual) % Monocytes % (Manual) % Neutrophils # (Manual) (1.3-7.7) k/uL Lymphocytes # (Manual) (1.0-4.8) k/uL Monocytes # (Manual) (0-1.0) k/uL Nucleated RBCs (0-0) /100 WBC Manual Slide Review RBC Morphology PT (9.0-12.0) sec INR (<1.2) APTT (22.0-30.0) sec Sodium (137-145) mmol/L Potassium (3.5-5.1) mmol/L Chloride (98-107) mmol/L Carbon Dioxide (22-30) mmol/L Anion Gap mmol/L BUN (9-20) mg/dL Creatinine (0.66-1.25) mg/dL Est GFR (CKD-EPI)AfAm (>60 ml/min/1.73 sqM) Est GFR (CKD-EPI)NonAf (>60 ml/min/1.73 sqM) Glucose (74-99) mg/dL Calcium (8.4-10.2) mg/dL Magnesium (1.6-2.3) mg/dL Total Bilirubin (0.2-1.3) mg/dL AST (17-59) U/L ALT (4-49) U/L Alkaline Phosphatase (38-126) U/L Troponin I (0.000-0.034) ng/mL NT-Pro-B Natriuret Pep pg/mL Total Protein (6.3-8.2) g/dL Albumin (3.5-5.0) g/dL Coronavirus (PCR) Not Detected (Not Detectd) Disposition Clinical Impression: Atrial fibrillation with RVR, Cough, Shortness of breath Disposition: ADMITTED IP TO THIS HOSP Condition: Fair Is patient prescribed a controlled substance at d/c from ED?: No Referrals: Lucio Avila MD [Primary Care Provider] - 1-2 days Time of Disposition: 14:44
[2019-12-11 12:19] LABS: HCT 43.3 % (39.0-53.0); HGB 13.8 gm/dL (13.0-17.5); MCH 28.9 pg (25.0-35.0); MCHC 31.9 g/dL (31.0-37.0); MCV 90.5 fL (80.0-100.0); Mean Platelet Volume 7.8; Platelet Count 415 k/uL (150-450); RBC 4.79 m/uL (4.30-5.90); RDW 14.5 % (11.5-15.5); WBC 22.8 k/uL (3.8-10.6)
[2019-12-11 12:32] LABS: INR 1.1 (<1.2); Partial Thromboplastin Time 25.4 sec (22.0-30.0); Prothrombin Time 11.1 sec (9.0-12.0)
[2019-12-11 12:33] LABS: Albumin 3.8 g/dL (3.5-5.0); Calcium 9.7 mg/dL (8.4-10.2); Magnesium 2.2 mg/dL (1.6-2.3); Potassium 5.7 mmol/L (3.5-5.1); Total Bilirubin 1.1 mg/dL (0.2-1.3); Total Protein 7.1 g/dL (6.3-8.2)
[2019-12-11 12:34] LABS: Lymphocytes # (M) 8.89 k/uL (1.0-4.8); Monocytes # (M) 1.14 k/uL (0-1.0); Neutrophils # (M) 12.77 k/uL (1.3-7.7); Neutrophils % (M) 56 %; Nucleated Red Blood Cells 0 /100 WBC (0-0); Total Cells Counted 200
[2019-12-11] MEDS ORDERED: SODIUM CHLORIDE 0.9% 1,000 ML IV STA (12:42)
[2019-12-11] MEDS ORDERED: HEPARIN SODIUM,PORCINE 5,000 UNIT/ML 1 ML VIAL IV PRN (12:49)
[2019-12-11] MEDS ORDERED: HEPARIN SODIUM,PORCINE 5,000 UNIT/ML 1 ML VIAL IV STA (12:49)
[2019-12-11] MEDS ORDERED: HEPARIN SOD,PORK IN 0.45% NACL 25,000 UNIT in 0.45% NACL 1 250ML.BAG IV SCH (13:00)
--- NOTE | 2019-12-11 13:03 | XR ---
EXAMINATION TYPE: XR chest 1V portable DATE OF EXAM: 12/11/2019 COMPARISON: 05/19/2019 INDICATION: Cough TECHNIQUE: Single frontal view of the chest is obtained. FINDINGS: The heart size is mild prominent. There appears be some tortuosity the aorta.. The pulmonary vasculature is normal. The lungs are clear. No suspicious opacities or focal consolidations are evident. No pleural effusio ns are identified. Degenerative changes are at the left shoulder. IMPRESSION: 1. Mild cardiomegaly. 2. No acute pulmonary process.
[2019-12-11] MEDS ORDERED: DILTIAZEM 125 MG in SODIUM CHLORIDE 0.9% 100 ML IV SCH (13:30)
[2019-12-11] MEDS ORDERED: NALOXONE 0.4 MG/ML 1 ML VIAL IV PRN (14:44)
[2019-12-11] MEDS: SODIUM CHLORIDE 0.9% 1,000 ML IV SCH (16:20)
--- NOTE | 2019-12-11 17:57 | P.HPIM ---
History of Present Illness H&P Date: 12/11/19 Chief Complaint: Severe dyspnea and shortness of breath, new onset of A. fib with RVR, CAD, 79-year-old male one of my office patient with past medical history of hypertension hyperlipidemia CAD and CLL who has been doing well for long time developed to have significant shortness of breath for the last 8 days happen suddenly was associated with mild palpitation patient developed to have over the last day or 2 low-grade temperature with mild cough and significant shortness of breath with minimum exertion mild nausea and abdominal discomfort patient was worried about the Covid 19 he ended up coming to the emergency department at [facility] where was seen and evaluated COVID 19 test was negative, surprisingly patient found to have new onset of A. fib with RVR with pulse running in 100 150 beats per minutes. Patient was started on heparin drip and Cardizem drip and admitted to the hospital will be going for an echocardiogram seen cardiology try to convert patient into lower pulse rate and continue patient on anticoagulation before going home. Review of Systems CONSTITUTIONAL: Well-developed no acute respiratory distress. EYES: No icterus sclerae, no conjunctivitis. EARS, NOSE, MOUTH, THROAT, and FACE: No sore throat, lymphadenopathy, carotid bruits or deformity. RESPIRATORY: Positive shortness of breath no cough mild wheezes. CARDIOVASCULAR: Positive PND at [facility] palpitation or angina.. GASTROINTESTINAL: No Abd pain, Nausea or vomiting, no Diarrhea or constipation, No GI Bleed, no distention or masses. GENITOURINARY: Negative for Hematuria or UTI, no kidney stones. INTEGUMENT/BREAST: Negative for any muscular injury with mild osteoarthritis.. HEMATOLOGIC/LYMPHATIC: Negative for bleed or purpura. MUSCULOSKELTAL: Negative for Myalgia or arthralgia. NEURLOGICAL: No LOC, Sz or syncope, blurred vision dizziness or abnormality.. BEHAVIORAL/PSYCH: Negative. ENDOCRINE: Negative. Past Medical History Past Medical History: Coronary Artery Disease (CAD), Hyperlipidemia, Hypertension Additional Past Medical History / Comment(s): leukemia History of Any Multi-Drug Resistant Organisms: None Reported Past Surgical History: Coronary Bypass/CABG, Heart Catheterization With Stent Additional Past Surgical History / Comment(s): Triple A Past Anesthesia/Blood Transfusion Reactions: No Reported Reaction Date of Last Stent Placement:: unable to recall Past Psychological History: No Psychological Hx Reported Smoking Status: Former smoker Past Alcohol Use History: Occasional Past Drug Use History: None Reported - Past Family History Mother Family Medical History: Cancer Father Family Medical History: No Reported History Medications and Allergies Home Medications Medication Instructions Recorded Confirmed Type Amino Acids 700 mg PO BID 05/19/19 12/11/19 History Atorvastatin [Lipitor] 40 mg PO DAILY 05/19/19 12/11/19 History Lisinopril-Hctz 20-12.5 mg 1 tab PO DAILY 05/19/19 12/11/19 History [Zestoretic 20-12.5] Allergies Allergy/AdvReac Type Severity Reaction Status Date / Time Tetanus Vaccines and Toxoid Allergy Unknown Verified 12/11/19 17:22 Physical Exam Vitals: Vital Signs Temp Pulse Pulse Resp BP BP Pulse Ox 12/11/19 16:51 98 F 101 H 18 134/65 100 12/11/19 16:00 98 17 108/79 99 12/11/19 15:30 105 H 18 110/78 98 12/11/19 15:03 98.2 F 116 H 18 120/68 100 12/11/19 15:00 108 H 17 98 12/11/19 14:30 126 H 18 109/79 97 12/11/19 14:00 111 H 19 105/70 100 12/11/19 13:54 131 H 18 105/70 100 12/11/19 13:30 140 H 19 98 12/11/19 13:03 137 H 18 103/78 100 12/11/19 12:40 134 H 18 94/73 92 L 12/11/19 11:16 97.4 F L 58 L 18 128/77 95 Intake and Output 12/11/19 12/11/19 12/11/19 06:59 14:59 22:59 Other: Weight 81.647 kg 84.4 kg General Appearance: Alert, cooperative, no distress, appears stated age. Neck HEENT: Supple, no lymphadenopathy, no thyroid enlargement, no carotid bruits. Lungs: Clear to auscultation without crackles or wheezes no rhonchi, no deformity. Chest Wall: Decrease expansion with deep inspiration no tenderness and no deformity was found on exam, no costochondral pain or discomfort. Heart: Irregular rate and rhythm, S1, S2 possible history positive JVD with systolic murmur. Back: Symmetric, no curvature, ROM normal, no CVA tenderness. Abdomen: Soft, non-tender, bowel sounds active all four quadrants, no masses, no organomegaly. Extremities: Extremities normal, atraumatic, no cyanosis or edema. Pulses: 2+ and symmetric. Skin: Skin color, texture, tugor normal, no rashes or lesions. Neurologic: Alert oriented x3 cranial nerves II through XII intact, no motor deficit, no abnormal balance or gait. Results CBC & Chem 7: 12/11/19 12:12 12/11/19 13:20 Labs: Abnormal Lab Results - Last 24 Hours (Table) 12/11/19 12/11/19 Range/Units 12:11 12:12 WBC 22.8 H (3.8-10.6) k/uL Neutrophils # (Manual) 12.77 H (1.3-7.7) k/uL Lymphocytes # (Manual) 8.89 H (1.0-4.8) k/uL Monocytes # (Manual) 1.14 H (0-1.0) k/uL Potassium 5.7 H (3.5-5.1) mmol/L BUN 28 H (9-20) mg/dL Glucose 157 H (74-99) mg/dL Thrombosis Risk Factor Assmnt - DVT/VTE Prophylaxis DVT/VTE Prophylaxis: Pharmacologic Prophylaxis ordered, Mechanical Prophylaxis ordered - Choose All That Apply Any of the Below Risk Factors Present?: Yes Other Risk Factors: Yes Each Risk Factor Represents 3 Points: Age 75 years or older Thrombosis Risk Factor Assessment Total Risk Factor Score: 3 Thrombosis Risk Factor Assessment Level: Moderate Risk Assessment and Plan Assessment: 1 severe dyspnea and shortness of breath: Secondary to A. fib with RVR no sign of infection at this point will treat A. fib consult cardiology echocardiogram patient eventually might need stress test and further cardiac testing. 2 A. fib with RVR: Patient was started on heparin drip and Cardizem drip pulse rate is down so far patient be started on Eliquis tomorrow and metoprolol titrate the dose to acute her pulse rate was 70 beats per minutes. Echocardiogram and further testing including stress test be done. 3 hypertension: Patient has been on lisinopril hydrochlorothiazide 20/2.5 mg daily with good control so far. 4 hyperlipidemia: On atorvastatin 40 mg daily. 5 CLL: White blood cell still running around 20,000 patient is not on any m edication currently has his CBC done every 1-2 months. 6 CAD post PCI and stent placement years ago patient was on secondary prevention he doesn't follow with cardiology. 7 BPH: Watch for any urinary retention patient is not in any medication and he is not symptomatic currently. 8 Mild hyperglycemia: On diet control Accu-Chek with sliding scales coverage and be done. 9 DVT prophylaxis: Patient will be on heparin drip for now. 10 GI prophylaxis: Patient be on Pepcid 20 mg daily. CODE STATUS: Full code. Admit patient to inpatient status for more than 2 nights.
[2019-12-11] MEDS ORDERED: AMINO ACIDS PO SCH (21:00)
[2019-12-11 21:07] LABS: Glucose,Whole Blood 100 mg/dL (75-99)
[2019-12-12] MEDS ORDERED: METOPROLOL TARTRATE 25 MG TAB PO SCH (06:00)
[2019-12-12 06:22] LABS: Glucose,Whole Blood 114 mg/dL (75-99)
[2019-12-12 06:40] LABS: ALT 12 U/L (4-49); AST 22 U/L (17-59); African American GFR (CKD) >90 (>60 ml/min/1.73 sqM); Albumin 2.6 g/dL (3.5-5.0); Alkaline Phosphatase 55 U/L (38-126); Anion Gap 5 mmol/L; Blood Urea Nitrogen 20 mg/dL (9-20); Calcium 8.2 mg/dL (8.4-10.2); Carbon Dioxide 26 mmol/L (22-30); Chloride 108 mmol/L (98-107); Glucose 118 mg/dL (74-99); Non-African American GFR(CKD) 85 (>60 ml/min/1.73 sqM); Potassium 4.2 mmol/L (3.5-5.1); Sodium 139 mmol/L (137-145); Total Bilirubin 0.6 mg/dL (0.2-1.3); Total Protein 5.3 g/dL (6.3-8.2)
[2019-12-12] MEDS: SODIUM CHLORIDE 0.9% 1,000 ML IV SCH (06:45)
[2019-12-12 06:46] LABS: Basophils % (A) 0 %; Eosinophils # (A) 0.1 k/uL (0-0.7); Eosinophils % (A) 0 %; Hypochromasia Slight; Lymphocytes # (A) 6.3 k/uL (1.0-4.8); Lymphocytes % (A) 46 %; MCH 28.3 pg (25.0-35.0); MCHC 30.9 g/dL (31.0-37.0); MCV 91.7 fL (80.0-100.0); Mean Platelet Volume 8.3; Monocytes # (A) 0.8 k/uL (0-1.0); Monocytes % (A) 6 %; Neutrophils # (A) 6.3 k/uL (1.3-7.7); Neutrophils % (A) 46 %; Platelet Count 315 k/uL (150-450); RBC 3.82 m/uL (4.30-5.90); RDW 14.4 % (11.5-15.5); WBC 13.8 k/uL (3.8-10.6)
[2019-12-12 07:20] LABS: HGB 10.8 gm/dL (13.0-17.5)
[2019-12-12 08:42] LABS: Poikilocytosis (M) Present
[2019-12-12] MEDS ORDERED: ASPIRIN 81 MG PO SCH (09:00)
[2019-12-12] MEDS: FAMOTIDINE 20 MG TAB PO SCH (09:28)
[2019-12-12] MEDS: LISINOPRIL-HCTZ 20-12.5 MG 1 EACH TAB PO SCH (09:28)
[2019-12-12] MEDS: APIXABAN 5 MG TAB PO SCH ×2 (09:28→19:45)
[2019-12-12] MEDS: ATORVASTATIN 40 MG TAB PO SCH (09:28)
--- NOTE | 2019-12-12 11:30 | P.CRDCN ---
History of Present Illness Consult date: 12/12/19 Requesting physician: Lucio Avila Consult reason: atrial fibrillation Chief complaint: Shortness of breath History of present illness: This is a pleasant 79-year-old gentleman with documented history of hypertension, hyperlipidemia, CLL, who presented to the hospital with 3 days or more of moderate to severe shortness of breath. He also states that he may have had a mild fever at home with some associated nausea. His EKG on presentation here showed atrial fibrillation with a rapid ventricular response. Chest x-ray did not reveal any acute findings. Laboratory data, white blood cell count on admission 22.8, hemoglobin 13.8, platelet count 4:15, this morning the white blood cell count is 13.8, hemoglobin 10.8, platelet count 3:15. Sodium 139, potassium 4.2, chloride 108, CO2 26, BUN 20, creatinine 0.8. BNP level 5400, troponin negative. Williamson virus not detected. The patient did have a noted drop in hemoglobin, he states that he does intermittently notices that he has black stools, but it appears to be when he is constipated according to him. He denies any prior history of atrial fibrillation. At the time of the consultation, patient was on IV heparin as well as IV Cardizem drip at 5 mg per hour. As compared to yesterday, the patient states that his breathing is significantly improved. He continues to be in atrial fibrillation this morning, his heart rate currently is in the 70s to 80s. Past Medical History Past Medical History: Coronary Artery Disease (CAD), Hyperlipidemia, Hypertension Additional Past Medical History / Comment(s): leukemia History of Any Multi-Drug Resistant Organisms: None Reported Past Surgical History: Coronary Bypass/CABG, Heart Catheterization With Stent Additional Past Surgical History / Comment(s): Triple A Past Anesthesia/Blood Transfusion Reactions: No Reported Reaction Date of Last Stent Placement:: unable to recall Past Psychological History: No Psychological Hx Reported Smoking Status: Former smoker Past Alcohol Use History: Occasional Past Drug Use History: None Reported - Past Family History Mother Family Medical History: Cancer Father Family Medical History: No Reported History Medications and Allergies Home Medications Medication Instructions Recorded Confirmed Type Amino Acids 700 mg PO BID 05/19/19 12/11/19 History Atorvastatin [Lipitor] 40 mg PO DAILY 05/19/19 12/11/19 History Lisinopril-Hctz 20-12.5 mg 1 tab PO DAILY 05/19/19 12/11/19 History [Zestoretic 20-12.5] Allergies Allergy/AdvReac Type Severity Reaction Status Date / Time Tetanus Vaccines and Toxoid Allergy Unknown Verified 12/11/19 17:22 Physical Exam Vitals: Vital Signs Temp Pulse Pulse Resp BP BP Pulse Ox 12/12/19 08:00 98.0 F 72 17 112/61 99 12/12/19 04:00 98.6 F 88 16 99/59 97 12/12/19 00:00 98.5 F 79 18 85/60 96 12/11/19 20:00 98.5 F 89 18 90/57 100 12/11/19 16:51 98 F 101 H 18 134/65 100 12/11/19 16:00 98 17 108/79 99 12/11/19 15:30 105 H 18 110/78 98 12/11/19 15:03 98.2 F 116 H 18 120/68 100 12/11/19 15:00 108 H 17 98 12/11/19 14:30 126 H 18 109/79 97 12/11/19 14:00 111 H 19 105/70 100 12/11/19 13:54 131 H 18 105/70 100 12/11/19 13:30 140 H 19 98 12/11/19 13:03 137 H 18 103/78 100 12/11/19 12:40 134 H 18 94/73 92 L Intake and Output 12/11/19 12/12/19 12/12/19 22:59 06:59 14:59 Intake Total 204.753 450.417 55.016 Balance 204.753 450.417 55.016 Intake: Intake, IV Titration 84.753 450.417 55.016 Amount Diltiazem 125 mg In 25 Sodium Chloride 0.9% 100 ml @ 5 MG/HR 5 mls/hr IV .Q24H [facility] Rx#:[id number] Heparin Sod,Pork in 0.45% 84.753 50.417 55.016 NaCl 25,000 unit In 0.45 % NaCl 1 250ml.bag @ 12 UNITS/KG/HR 9.798 mls/hr IV .Q24H [facility] Rx#: [id number] Sodium Chloride 0.9% 1, 375 000 ml @ 75 mls/hr IV . [id number] [facility] Rx#:[id number] Oral 120 Other: Weight 84.4 kg 82.8 kg PHYSICAL EXAMINATION: GENERAL: 79-year-old gentleman in no acute distress at the time of my examination HEENT: Head is atraumatic, normocephalic. Pupils equal, round. Sclera anicteric. Conjunctiva are clear. Mucous membranes of the mouth are moist. Neck is supple. There is no elevated jugular venous pressure. No carotid bruit is heard. HEART EXAMINATION: Heart S1 and S2 irregularly irregular a systolic murmur is heard CHEST EXAMINATION: Lungs are clear to auscultation and precussion. No chest wall tenderness is noted on palpation or with deep breathing. ABDOMEN: Soft, nontender. Bowel sounds are heard. No organomegaly noted. EXTREMITIES: 2+ peripheral pulses with no evidence of peripheral edema and no calf tenderness noted. NEUROLOGIC patient is awake, alert and oriented 3 . . Results 12/12/19 05:59 12/12/19 05:59 Cardiac Enzymes 12/11/19 12/11/19 12/12/19 Range/Units 12:11 12:11 05:59 AST 26 22 (17-59) U/L Troponin I <0.012 (0.000-0.034) ng/mL Coagulation 12/11/19 12/11/19 12/12/19 Range/Units 12:11 18:44 00:38 PT 11.1 (9.0-12.0) sec APTT 25.4 28.0 69.5 H (22.0-30.0) sec 12/12/19 Range/Units 05:59 PT (9.0-12.0) sec APTT 45.3 H (22.0-30.0) sec CBC 12/11/19 12/12/19 Range/Units 12:12 05:59 WBC 22.8 H 13.8 H (3.8-10.6) k/uL RBC 4.79 3.82 L (4.30-5.90) m/uL Hgb 13.8 10.8 L D (13.0-17.5) gm/dL Hct 43.3 35.0 L (39.0-53.0) % Plt Count 415 315 (150-450) k/uL Comprehensive Metabolic Panel 12/11/19 12/11/19 12/12/19 Range/Units 12:11 13:20 05:59 Sodium 140 139 (137-145) mmol/L Potassium 5.7 H 4.5 4.2 (3.5-5.1) mmol/L Chloride 106 108 H (98-107) mmol/L Carbon Dioxide 23 26 (22-30) mmol/L BUN 28 H 20 (9-20) mg/dL Creatinine 1.01 0.82 (0.66-1.25) mg/dL Glucose 157 H 118 H (74-99) mg/dL Calcium 9.7 8.2 L (8.4-10.2) mg/dL AST 26 22 (17-59) U/L ALT 14 12 (4-49) U/L Alkaline Phosphatase 75 55 (38-126) U/L Total Protein 7.1 5.3 L (6.3-8.2) g/dL Albumin 3.8 2.6 L (3.5-5.0) g/dL Current Medications Generic Name Dose Route Start Last Admin Trade Name Freq PRN Reason Stop Dose Admin Apixaban 5 mg 12/12/19 09:00 12/12/19 09:28 Eliquis PO 5 mg BID [facility] Administration Atorvastatin Calcium 40 mg 12/12/19 09:00 12/12/19 09:28 Lipitor PO 40 mg DAILY [facility] Administration Famotidine 20 mg 12/12/19 09:00 12/12/19 09:28 Pepcid PO 20 mg DAILY [facility] Administration Lisinopril/HCTZ 1 each 12/12/19 09:00 12/12/19 09:28 Zestoretic 20-12.5 PO 1 each DAILY [facility] Administration Sodium Chloride 1,000 mls @ 75 mls/hr 12/11/19 14:45 12/12/19 06:45 Saline 0.9% IV 75 mls/hr .[id number] [facility] Administration Metoprolol Tartrate 25 mg 12/12/19 21:00 Lopressor PO BID [facility] Naloxone HCl 0.2 mg 12/11/19 14:44 Narcan IV Q2M PRN Opioid Reversal Intake and Output 12/11/19 12/12/19 12/12/19 22:59 06:59 14:59 Intake Total 204.753 450.417 55.016 Balance 204.753 450.417 55.016 Intake: Intake, IV Titration 84.753 450.417 55.016 Amount Diltiazem 125 mg In 25 Sodium Chloride 0.9% 100 ml @ 5 MG/HR 5 mls/hr IV .Q24H [facility] Rx#:[id number] Heparin Sod,Pork in 0.45% 84.753 50.417 55.016 NaCl 25,000 unit In 0.45 % NaCl 1 250ml.bag @ 12 UNITS/KG/HR 9.798 mls/hr IV .Q24H [facility] Rx#: [id number] Sodium Chloride 0.9% 1, 375 000 ml @ 75 mls/hr IV . [id number] [facility] Rx#:[id number] Oral 120 Other: Weight 84.4 kg 82.8 kg 12/12/19 05:59 12/12/19 05:59 EKG Interpretations (text) EKG shows atrial fibrillation with a rapid ventricular response Assessment and Plan Plan: Assessment and plan #1 atrial fibrillation with rapid ventricular response, persistent, appears to be of new onset for the patient. #2 symptoms of progressively worsening shortness of breath, could be secondary to atrial fibrillation with rapid ventricular response, mild congestive cardiac failure secondary to this, LV function unknown. #3 hypertension #4 hyperlipidemia #5 CLL Plan We will discontinue the IV heparin and start the patient on Eliquis. We will also stop the Cardizem drip and start the patient on oral Lopressor. We will obtain a TSH level as well as an echocardiogram with Doppler study. Patient denies having any prior cardiac history by way of stenting or bypass surgery, we will investigate this further. He has been educated regarding the importance of anticoagulation for stroke prevention. Further recommendations to follow. DNP note has been reviewed, I agree with a documented findings and plan of care. Patient was seen and examined.
[2019-12-12 11:48] LABS: Glucose,Whole Blood 98 mg/dL (75-99)
[2019-12-12] MEDS ORDERED: ACETAMINOPHEN TAB 325 MG TAB PO PRN (12:31)
--- NOTE | 2019-12-12 13:19 | P.PN ---
Subjective Progress Note Date: 12/12/19 79-year-old male one of my office patient with past medical history of hypertension hyperlipidemia CAD and CLL who has been doing well for long time developed to have significant shortness of breath for the last 8 days happen suddenly was associated with mild palpitation patient developed to have over the last day or 2 low-grade temperature with mild cough and significant shortness of breath with minimum exertion mild nausea and abdominal discomfort patient was worried about the Covid 19 he ended up coming to the emergency department at [facility] where was seen and evaluated COVID 19 test was negative, surprisingly patient found to have new onset of A. fib with RVR with pulse r unning in 100 150 beats per minutes. Patient was started on heparin drip and Cardizem drip and admitted to the hospital will be going for an echocardiogram seen cardiology try to convert patient into lower pulse rate and continue patient on anticoagulation before going home. 12/11: Patient remains in atrial fibrillation with rate control the 70s and 80s. Blood pressure 112/61, pulse ox 99% on room air. He has currently on Cardizem drip at 5 mg per hour and heparin drip. Patient is to be transitioned to eliquis and metoprolol. Patient is complaining of headache. WBC 13.8, hemoglobin 10.8, platelet count 315. BUN 20 creatinine is 0.82. TSH 1.34. Echocardiogram report is pending. Anticipate patient will be ready for discharge by tomorrow. Objective - Vital Signs Vital signs: Vital Signs Temp 98.6 F 12/12/19 04:00 Pulse 88 12/12/19 04:00 Resp 16 12/12/19 04:00 BP 99/59 12/12/19 04:00 Pulse Ox 97 12/12/19 04:00 Intake & Output 12/11/19 12/12/19 12/12/19 18:59 06:59 18:59 Intake Total 120 535.170 55.016 Balance 120 535.170 55.016 Weight 84.4 kg 82.8 kg Intake: Intake, IV Titration 535.170 55.016 Amount Diltiazem 125 mg In 25 Sodium Chloride 0.9% 100 ml @ 5 MG/HR 5 mls/hr IV .Q24H [facility] Rx#:[id number] Heparin Sod,Pork in 0.45% 135.170 55.016 NaCl 25,000 unit In 0.45 % NaCl 1 250ml.bag @ 12 UNITS/KG/HR 9.798 mls/hr IV .Q24H [facility] Rx#: [id number] Sodium Chloride 0.9% 1, 375 000 ml @ 75 mls/hr IV . [id number] [facility] Rx#:[id number] Oral 120 - Exam Review of Systems CONSTITUTIONAL: Well-developed no acute respiratory distress. EYES: No icterus sclerae, no conjunctivitis. EARS, NOSE, MOUTH, THROAT, and FACE: No sore throat, lymphadenopathy, carotid bruits or deformity. RESPIRATORY: Positive shortness of breath no cough mild wheezes. CARDIOVASCULAR: Positive PND denies palpitation or angina.. GASTROINTESTINAL: No Abd pain, Nausea or vomiting, no Diarrhea or constipation, No GI Bleed, no distention or masses. GENITOURINARY: Negative for Hematuria or UTI, no kidney stones. INTEGUMENT/BREAST: Negative for any muscular injury with mild osteoarthritis.. HEMATOLOGIC/LYMPHATIC: Negative for bleed or purpura. MUSCULOSKELTAL: Negative for Myalgia or arthralgia. NEURLOGICAL: No LOC, Sz or syncope, blurred vision dizziness or abnormality.. BEHAVIORAL/PSYCH: Negative. ENDOCRINE: Negative. Physical examination General Appearance: Alert, cooperative, no distress, appears stated age. Neck HEENT: Supple, no lymphadenopathy, no thyroid enlargement, no carotid b ruits. Lungs: Clear to auscultation without crackles or wheezes no rhonchi, no deformity. Chest Wall: Decrease expansion with deep inspiration no tenderness and no deformity was found on exam, no costochondral pain or discomfort. Heart: Irregular rate and rhythm, S1, S2 possible history positive JVD with systolic murmur. Back: Symmetric, no curvature, ROM normal, no CVA tenderness. Abdomen: Soft, non-tender, bowel sounds active all four quadrants, no masses, no organomegaly. Extremities: Extremities normal, atraumatic, no cyanosis or edema. Pulses: 2+ and symmetric. Skin: Skin color, texture, tugor normal, no rashes or lesions. Neurologic: Alert oriented x3 cranial nerves II through XII intact, no motor deficit, no abnormal balance or gait. - Labs CBC & Chem 7: 12/12/19 05:59 12/12/19 05:59 Labs: Abnormal Lab Results - Last 24 Hours (Table) 12/11/19 12/11/19 12/11/19 Range/Units 12:11 12:12 21:06 WBC 22.8 H (3.8-10.6) k/uL RBC (4.30-5.90) m/uL Hgb (13.0-17.5) gm/dL Hct (39.0-53.0) % MCHC (31.0-37.0) g/dL Neutrophils # (Manual) 12.77 H (1.3-7.7) k/uL Lymphocytes # (Manual) 8.89 H (1.0-4.8) k/uL Monocytes # (Manual) 1.14 H (0-1.0) k/uL APTT (22.0-30.0) sec Potassium 5.7 H (3.5-5.1) mmol/L Chloride (98-107) mmol/L BUN 28 H (9-20) mg/dL Glucose 157 H (74-99) mg/dL POC Glucose (mg/dL) 100 H (75-99) mg/dL Calcium (8.4-10.2) mg/dL Total Protein (6.3-8.2) g/dL Albumin (3.5-5.0) g/dL 12/12/19 12/12/19 12/12/19 Range/Units 00:38 05:59 05:59 WBC 13.8 H (3.8-10.6) k/uL RBC 3.82 L (4.30-5.90) m/uL Hgb 10.8 L D (13.0-17.5) gm/dL Hct 35.0 L (39.0-53.0) % MCHC 30.9 L (31.0-37.0) g/dL Neutrophils # (Manual) (1.3-7.7) k/uL Lymphocytes # (Manual) (1.0-4.8) k/uL Monocytes # (Manual) (0-1.0) k/uL APTT 69.5 H (22.0-30.0) sec Potassium (3.5-5.1) mmol/L Chloride 108 H (98-107) mmol/L BUN (9-20) mg/dL Glucose 118 H (74-99) mg/dL POC Glucose (mg/dL) (75-99) mg/dL Calcium 8.2 L (8.4-10.2) mg/dL Total Protein 5.3 L (6.3-8.2) g/dL Albumin 2.6 L (3.5-5.0) g/dL 12/12/19 12/12/19 Range/Units 05:59 06:21 WBC (3.8-10.6) k/uL RBC (4.30-5.90) m/uL Hgb (13.0-17.5) gm/dL Hct (39.0-53.0) % MCHC (31.0-37.0) g/dL Neutrophils # (Manual) (1.3-7.7) k/uL Lymphocytes # (Manual) (1.0-4.8) k/uL Monocytes # (Manual) (0-1.0) k/uL APTT 45.3 H (22.0-30.0) sec Potassium (3.5-5.1) mmol/L Chloride (98-107) mmol/L BUN (9-20) mg/dL Glucose (74-99) mg/dL POC Glucose (mg/dL) 114 H (75-99) mg/dL Calcium (8.4-10.2) mg/dL Total Protein (6.3-8.2) g/dL Albumin (3.5-5.0) g/dL Assessment and Plan Plan: 1 severe dyspnea and shortness of breath: Secondary to A. fib with RVR, probable paroxysmal atrial fibrillation. Cardiology consult appreciated. Heparin to be transitioned to eliquis and Cardizem drip to oral metoprolol. Echocardiogram has been ordered. TSH normal patient may require a stress test or further cardiac evaluation. 2 A. fib with RVR. Continue as in #1 3 hypertension: Patient has been on lisinopril hydrochlorothiazide 20/2.5 mg daily with good control so far. 4 hyperlipidemia: On atorvastatin 40 mg daily. 5 CLL: White blood cell still running around 20,000 patient is not on any medication currently has his CBC done every 1-2 months. 6 CAD post PCI and stent placement years ago patient was on secondary prevention he doesn't follow with cardiology. 7 BPH: Watch for any urinary retention patient is not in any medication and he is not symptomatic currently. 8 Mild hyperglycemia: On diet control Accu-Chek with sliding scales coverage and be done. 9 DVT prophylaxis: Patient will be on heparin drip for now. 10 GI prophylaxis: Patient be on Pepcid 20 mg daily. CODE STATUS: Full code. Discharge plan: Home on Wednesday Impression and plan of care have been directed as dictated by the signing physician. Nathalia Frausto nurse practitioner acting as scribe for signing physician.
[2019-12-12 16:56] LABS: Glucose,Whole Blood 116 mg/dL (75-99)
[2019-12-12] MEDS: METOPROLOL TARTRATE 25 MG TAB PO SCH (19:45)
[2019-12-13] MEDS: ATORVASTATIN 40 MG TAB PO SCH (08:40)
[2019-12-13] MEDS: APIXABAN 5 MG TAB PO SCH (08:40)
[2019-12-13] MEDS: FAMOTIDINE 20 MG TAB PO SCH (08:41)
[2019-12-13] MEDS: METOPROLOL TARTRATE 25 MG TAB PO SCH (08:41)
--- NOTE | 2019-12-13 10:01 | ECHOF ---
Referral Reason:afib rvr MEASUREMENTS -------- HEIGHT: 180.3 cm WEIGHT: 82.6 kg BP: RVIDd: 4.5 cm (< 3.3) IVSd: 1.7 cm (0.6 - 1.1) LVIDd: 3.8 cm (3.9 - 5.3) LVPWd: 1.4 cm (0.6 - 1.1) IVSs: 1.7 cm LVIDs: 2.3 cm LVPWs: 1.4 cm LAESV Index (A-L): 41.14 ml/m Ao Diam: 3.4 cm (2.0 - 3.7) AV Cusp: 2.4 cm (1.5 - 2.6) LA Diam: 3.5 cm (2.7 - 3.8) AR PHT: 1034 ms RAP: 5.00 mmHg RVSP: 27.81 mmHg FINDINGS -------- Atrial fibrillation. This was a technically adequate study. The left ventricular size is normal. There is moderate concentric left ventricular hypertrophy. O verall left ventricular systolic function is moderately impaired with, an EF between 35 - 40 %. The right ventricle is severely enlarged. LA is severely dilated >40 ml/m2 The right atrial size is normal. The aortic valve is trileaflet and appears structurally normal. There is moderate aortic regurgitat ion. The mitral valve is normal. Mild mitral regurgitation is present. The tricuspid valve appears structurally normal. Mild tricuspid regurgitation present. Right vent ricular systolic pressure is normal at < 35 mmHg. There is no pulmonic regurgitation present. The aortic root size is normal. IVC Not well visulized. There is a small, generalized pericardial effusion present. CONCLUSIONS -------- 1. Atrial fibrillation. 2. This was a technically adequate study. 3. The left ventricular size is normal. 4. There is moderate concentric left ventricular hypertrophy. 5. Overall left ventricular systolic function is moderately impaired with, an EF between 35 - 40 %. 6. The right ventricle is severely enlarged. 7. LA is severely dilated >40 ml/m2 8. The right atrial size is normal. 9. The aortic valve is trileaflet and appears structurally normal. 10. There is moderate aortic regurgitation. 11. The mitral valve is normal. 12. Mild mitral regurgitation is present. 13. The tricuspid valve appears structurally normal. 14. Mild tricuspid regurgitation present. 15. Right ventricular systolic pressure is normal at < 35 mmHg. 16. There is no pulmonic regurgitation present. 17. The aortic root size is normal. 18. IVC Not well visulized. 19. There is a small, generalized pericardial effusion present. PLAN EXAMINER: Emerald Borjas RDCS
[2019-12-13 10:13] LABS: HCT 36.8 % (39.0-53.0); HGB 11.6 gm/dL (13.0-17.5); Hypochromasia Slight; MCH 28.6 pg (25.0-35.0); MCHC 31.4 g/dL (31.0-37.0); Mean Platelet Volume 8.1; Platelet Count 384 k/uL (150-450); RBC 4.05 m/uL (4.30-5.90); RDW 14.1 % (11.5-15.5); WBC 12.9 k/uL (3.8-10.6)
[2019-12-13 10:49] LABS: African American GFR (CKD) >90 (>60 ml/min/1.73 sqM); Anion Gap 6 mmol/L; Blood Urea Nitrogen 16 mg/dL (9-20); Calcium 8.5 mg/dL (8.4-10.2); Carbon Dioxide 26 mmol/L (22-30); Chloride 106 mmol/L (98-107); Glucose 119 mg/dL (74-99); Non-African American GFR(CKD) 87 (>60 ml/min/1.73 sqM); Potassium 4.1 mmol/L (3.5-5.1); Sodium 138 mmol/L (137-145)
[2019-12-13] MEDS: LISINOPRIL-HCTZ 20-12.5 MG 1 EACH TAB PO SCH (11:07)
[2019-12-13 11:57] VITALS: RESP 18; TEMP 96.7
[2019-12-13 11:59] VITALS: BP 100/65; PULSE 95
--- NOTE | 2019-12-13 12:16 | P.PN ---
Subjective Progress Note Date: 12/13/19 This is a pleasant 79-year-old gentleman with documented history of hypertension, hyperlipidemia, CLL, who presented to the hospital with 3 days or more of moderate to severe shortness of breath. He also states that he may have had a mild fever at home with some associated nausea. His EKG on presentation here showed atrial fibrillation with a rapid ventricular response. Chest x-ray did not reveal any acute findings. Laboratory data, white blood cell count on admission 22.8, hemoglobin 13.8, platelet count 4:15, this morning the white blood cell count is 13.8, hemoglobin 10.8, platelet count 3:15. Sodium 139, potassium 4.2, chloride 108, CO2 26, BUN 20, creatinine 0.8. BNP level 5400, troponin negative. Williamson virus not detected. The patient did have a noted drop in hemoglobin, he states that he does intermittently notices that he has black stools, but it appears to be when he is constipated according to him. He denies any prior history of atrial fibrillation. At the time of the consultation, patient was on IV heparin as well as IV Cardizem drip at 5 mg per hour. As compared to yesterday, the patient states that his breathing is significantly improved. He continues to be in atrial fibrillation this morning, his heart rate currently is in the 70s to 80s. 12/13/2019 Patient was seen and examined this morning, his heart rate was up earlier this morning, after he received his beta geraldine the heart rate came down into the mid to high 90s. Blood pressure 84/50 and overall the patient feels well. He is on anticoagulation. From our perspective he may be able to be discharged, we'll make him a follow-up appointment to see Dr. Mak in the office post discharge. Objective - Vital Signs Vital signs: Vital Signs Temp 96.7 F L 12/13/19 08:35 Pulse 95 12/13/19 11:10 Resp 18 12/13/19 11:10 BP 100/65 12/13/19 11:10 Pulse Ox 99 12/13/19 11:10 Intake & Output 12/12/19 12/13/19 12/13/19 18:59 06:59 18:59 Intake Total 55.016 300 180 Output Total 250 Balance 55.016 300 -70 Intake: Intake, IV Titration 55.016 Amount Heparin Sod,Pork in 0.45% 55.016 NaCl 25,000 unit In 0.45 % NaCl 1 250ml.bag @ 12 UNITS/KG/HR 9.798 mls/hr IV .Q24H DERICK Rx#: [id number] Oral 300 180 Output: Urine 250 Other: Voiding Method Toilet # Voids 2 - Exam PHYSICAL EXAMINATION: GENERAL: 79-year-old gentleman in no acute distress at the time of my examination HEENT: Head is atraumatic, normocephalic. Pupils equal, round. Sclera anicter ic. Conjunctiva are clear. Mucous membranes of the mouth are moist. Neck is supple. There is no elevated jugular venous pressure. No carotid bruit is heard. HEART EXAMINATION: Heart S1 and S2 irregularly irregular a systolic murmur is heard CHEST EXAMINATION: Lungs are clear to auscultation and precussion. No chest wall tenderness is noted on palpation or with deep breathing. ABDOMEN: Soft, nontender. Bowel sounds are heard. No organomegaly noted. EXTREMITIES: 2+ peripheral pulses with no evidence of peripheral edema and no calf tenderness noted. NEUROLOGIC patient is awake, alert and oriented 3 . - Labs CBC & Chem 7: 12/13/19 09:53 12/13/19 09:53 Labs: Abnormal Lab Results - Last 24 Hours (Table) 12/12/19 12/13/19 12/13/19 Range/Units 16:55 09:53 09:53 WBC 12.9 H (3.8-10.6) k/uL RBC 4.05 L (4.30-5.90) m/uL Hgb 11.6 L (13.0-17.5) gm/dL Hct 36.8 L (39.0-53.0) % Glucose 119 H (74-99) mg/dL POC Glucose (mg/dL) 116 H (75-99) mg/dL Assessment and Plan Plan: Assessment and plan #1 atrial fibrillation with rapid ventricular response, persistent, appears to be of new onset for the patient. #2 symptoms of progressively worsening shortness of breath, could be secondary to atrial fibrillation with rapid ventricular response, mild congestive cardiac failure secondary to this, LV function unknown. #3 hypertension #4 hyperlipidemia #5 CLL Plan The patient's echocardiogram with Doppler study revealed a severely enlarged right ventricle with a documented ejection fraction of 35-40%. Moderate aortic regurgitation. Our recommendation would be to continue the patient on his current medications. Make a follow-up appointment in the office with Dr. Mak. DNP note has been reviewed, I agree with a documented findings and plan of care. Patient was seen and examined.
--- NOTE | 2019-12-13 13:06 | P.DS ---
Providers Date of admission: 12/11/19 14:31 Expected date of discharge: 12/13/19 Attending physician: Lucio Avila Consults: 12/11/19 14:46 Consult Physician Routine Consulting Provider: [facility] Consult Reason/Comments: afib rvr, new onset Do you want consulting provider notified?: Yes Primary care physician: [facility] Course: 79-year-old male one of my office patient with past medical history of hypertension hyperlipidemia CAD and CLL who has been doing well for long time developed to have significant shortness of breath for the last 8 days happen suddenly was associated with mild palpitation patient developed to have over the last day or 2 low-grade temperature with mild cough and significant shortness of breath with minimum exertion mild nausea and abdominal discomfort patient was worried about the Covid 19 he ended up coming to the emergency department at [facility] where was seen and evaluated COVID 19 test was negative, surprisingly patient found to have new onset of A. fib with RVR with pulse running in 100 150 beats per minutes. Patient was started on heparin drip and Cardizem drip and admitted to the hospital will be going for an echocardiogram seen cardiology try to convert patient into lower pulse rate and continue patient on anticoagulation before going home. 12/11: Patient remains in atrial fibrillation with rate control the 70s and 80s. Blood pressure 112/61, pulse ox 99% on room air. He has currently on Cardizem drip at 5 mg per hour and heparin drip. Patient is to be transitioned to eliquis and metoprolol. Patient is complaining of headache. WBC 13.8, hemoglobin 10.8, platelet count 315. BUN 20 creatinine is 0.82. TSH 1.34. Echocardiogram report is pending. Anticipate patient will be ready for discharge by tomorrow. 12/12: Patient has been afebrile, heart rate 109 12 134 early this morning but improved after he received beta geraldine. The patient has been cleared for discharge by cardiology. Patient is very anxious to go home. He is ambulating in his room without chest pain, shortness of breath, palpitations, lightheadedness or dizziness. Discharge diagnoses: 1 severe dyspnea and shortness of breath: Secondary to A. fib with RVR, probable paroxysmal atrial fibrillation. 2 A. fib with RVR. 3 hypertension 4 hyperlipidemia 5 CLL 6 CAD post PCI and stent placement years ago 7 BPH 8 Mild hyperglycemia Discharge plan: Home Impression and plan of care have been directed as dictated by the signing physician. Nathalia Frausto nurse practitioner acting as scribe for signing physician. Patient Condition at Discharge: Good Plan - Discharge Summary Discharge Rx Participant: No New Discharge Prescriptions: New Apixaban [Eliquis] 5 mg PO BID #60 tab Metoprolol Tartrate [Lopressor] 25 mg PO BID #60 tab Continue Lisinopril-Hctz 20-12.5 mg [Zestoretic 20-12.5] 1 tab PO DAILY Atorvastatin [Lipitor] 40 mg PO DAILY Amino Acids 700 mg PO BID Discharge Medication List Amino Acids 700 mg PO BID 05/19/19 [History] Atorvastatin [Lipitor] 40 mg PO DAILY 05/19/19 [History] Lisinopril-Hctz 20-12.5 mg [Zestoretic 20-12.5] 1 tab PO DAILY 05/19/19 [History] Apixaban [Eliquis] 5 mg PO BID #60 tab 12/13/19 [Rx] Metoprolol Tartrate [Lopressor] 25 mg PO BID #60 tab 12/13/19 [Rx] Follow up Appointment(s)/Referral(s): aPo Mak MD [STAFF PHYSICIAN] - 12/21/19 2:15 pm Lucio vAila MD [Primary Care Provider] - 1 Week (Office closed, please call office to schedule follow up appointment. ) Patient Instructions/Handouts: A-fib (Atrial Fibrillation) (DC), Safe Use of Anticoagulants (DC) Discharge Disposition: HOME SELF-CARE
--- NOTE | 2019-12-15 14:43 | CDI ---
Documentation Clarification Form Date: 12/15/2019 02:19:17 PM From: Della Connor RN, CCDS Email: [email or web address] Admit Date: 12/11/2019 02:31:00 PM Patient Name: Macario Garcias Visit Number: [id number] Discharge Date: 12/13/2019 12:47:00 PM ATTENTION: The Clinical Documentation Specialists (CDI) and [facility] Coding Staff appreciate your assistance in clarifying documentation. Please respond to the clarification below the line at the bottom and electronically sign. The CDI & [facility] Coding staff will review the response and follow-up if needed. Please note: Queries are made part of the Legal Health Record. If you have any questions, please contact the author of this message via ITS. Dr. Pao Mak 12/11 and 12/12 progress note indicate 'symptoms of progressively worsening shortness of breath, could be secondary to atrial fibrillation with rapid ventricular response, mild congestive cardiac failure secondary to this, LV function unknown. History/Risk Factors: hypertension, hyperlipidemia and CAD Clinical Indicators: 12/10 H&P indicates significant shortness of breath with minimum exertion. 12/10 EKG showing atrial fibrillation with RVR Pulse OX: 92%-100% BNP: 5,400 12/11 Echocardiogram Results: Atrial fibrillation, moderate concentric left ventricular hypertrophy. EF 35-40%. The right ventricle is severely enlarged 12/10 Chest X Ray: Mild cardiomegaly Treatment: Lisinopril/Hctz po daily, Cardizem drip at 5ml/hr, Lopressor 25mg BID, heart healthy diet, O2 2LNC In your professional opinion, can you please clarify the acuity and type of congestive cardiac failure if known? Systolic Heart Failure: Acute Chronic Acute on Chronic Diastolic Heart Failure: Acute Chronic Acute on Chronic Systolic & Diastolic Heart Failure: Acute Chronic XXX Acute on Chronic Heart Failure Unable to Determine Other, please specify MTDD
== END 2019-12-13 12:47 | disposition home or self-care (01) | DRG 308 ==
LOC: EC 11:14 → 3SCARD 14:31
PROVIDERS: ADMIT Internal Medicine Geriatric Medicine; ATTEND Internal Medicine Geriatric Medicine
DX: I48.0 Paroxysmal atrial fibrillation (principal); I50.43 Acute on chronic combined systolic (congestive) and diastolic (congestive) heart failure; C91.10 Chronic lymphocytic leukemia of B-cell type not having achieved remission; E78.5 Hyperlipidemia, unspecified; I25.10 Atherosclerotic heart disease of native coronary artery without angina pectoris; I11.0 Hypertensive heart disease with heart failure; Z20.828 Contact with and (suspected) exposure to other viral communicable diseases; N40.0 Benign prostatic hyperplasia without lower urinary tract symptoms; Z79.82 Long term (current) use of aspirin; Z79.899 Other long term (current) drug therapy; Z87.891 Personal history of nicotine dependence; Z95.1 Presence of aortocoronary bypass graft; Z95.5 Presence of coronary angioplasty implant and graft; R73.9 Hyperglycemia, unspecified; Z88.7 Allergy status to serum and vaccine
CPT/HCPCS: 36415; 71045; 80048; 80053; 83735; 83880; 84132; 84443; 84484; 85025; 85027; 85610; 85730; 87635; 93005; 93306; 96361; 96365; 96366; 96368; 96376; 99285

== ENCOUNTER → 2020-01-10 | Outpatient (CLI) | payer MEDICARE, BC | END | disposition home or self-care (01) | LOC: LABWHC1 08:28 | PROVIDERS: ATTEND Internal Medicine Interventional Cardiology | DX: Z11.59 Encounter for screening for other viral diseases (principal) | CPT/HCPCS: 87635 ==

== ENCOUNTER 2020-01-12 05:59 | Day surgery (SDC) | payer MEDICARE, BC ==
[2020-01-10 11:36] VITALS: BMI 23.1
[~2020-01-12 05:59] MED LIST: SODIUM CHLORIDE 0.9% 1,000 ML IV SCH
[2020-01-12 06:16] VITALS: TEMP 97.6
[2020-01-12] MEDS ORDERED: PROPOFOL 10 MG/ML 20 ML VIAL IV ONE (06:58)
[2020-01-12] MEDS ORDERED: SODIUM CHLORIDE 0.9% 1,000 ML IV SCH (07:30)
[2020-01-12] MEDS ORDERED: SODIUM CHLORIDE 0.9% 1,000 ML IV ONE (08:00)
[2020-01-12] MEDS ORDERED: LISINOPRIL-HCTZ 20-12.5 MG 1 EACH TAB PO SCH (09:00)
[2020-01-12] MEDS ORDERED: ATORVASTATIN 40 MG TAB PO SCH (09:00)
[2020-01-12] MEDS ORDERED: METOPROLOL TARTRATE 25 MG TAB PO SCH (09:00)
[2020-01-12] MEDS ORDERED: APIXABAN 5 MG TAB PO SCH (09:00)
[2020-01-12 09:13] VITALS: RESP 16
--- NOTE | 2020-01-12 09:14 | ECHOT ---
TRANSESOPHAGEAL ECHOCARDIOGRAM INDICATION: Evaluation of left atrial appendage. PROCEDURE: After explaining the procedure to the patient, its risks and complications, his blood pressure, heart rate, O2 saturation was monitored. The throat was sprayed with Cetacaine. He received sedation per Anesthesia Department. The probe was introduced into the esophagus without difficulty, images were obtained. Following that, the probe was removed. There was no immediate complication. FINDINGS: Left atrial size is dilated. Left atrial appendage is normal. Left ventricular size is normal. There is global hypokinesis, ejection fraction of about 45%. The aortic valve is tricuspid valve with normal appearance. The mitral valve is mildly thickened. Tricuspid valve is normal. There is significant dilatation of the ascending aorta with spontaneous contrast in the thoracic aorta. The ascending aorta is measuring up to 4.9 cm. No pericardial effusion was noted, contrast bubble study revealed no evidence of shunting across the intra-atrial septum. An echogenic area was noted in the ascending aorta of unclear etiology. Doppler pulse wave and color Doppler obtained and revealed a moderate mitral, aortic and tricuspid regurgitation. There was no shunting by color Doppler study. CONCLUSION: 1. Dilated left atrium with normal appearance left atrial appendage. 2. Normal left ventricular size with global hypokinesis. 3. A dilated ascending aorta with spontaneous contrast and an echogenic area of unclear etiology, no clear flap was noted. 4. Moderate aortic, tricuspid and mitral regurgitation. 5. No pericardial effusion. 6. No shunting by color Doppler study. MMODL / IJN: [id number] /
--- NOTE | 2020-01-12 09:38 | CE ---
CARDIAC ELECTROPHYSIOLOGY REPORT INDICATION: Atrial fibrillation. PROCEDURE: After explaining the procedure to the patient, its risks and complications, his blood pressure, heart rate, O2 saturation was monitored and after performing transesophageal echocardiogram and obtaining sedated state by Anesthesia Department, a synchronized biphasic cardioversion using 200 joules was performed with christianity of normal sinus rhythm. The patient initially had sinus bradycardia. There was no immediate complication. The patient will undergo a CT angiogram of the ascending aorta to evaluate his dilated aorta. MMYARELY / IJN: [id number] /
[2020-01-12 10:12] VITALS: BP 113/61; PULSE 54
--- NOTE | 2020-01-12 11:37 | CT ---
EXAMINATION TYPE: CT angio thor/abd pel aorta DATE OF EXAM: 01/12/2020 COMPARISON: 05/20/2019 CTA neck HISTORY: follow up known aneurysms with AAA stent CT DLP: 1603 mGycm, Automated exposure control for dose reduction was used. CONTRAST: Performed injected with 100 mL of Isovue 370. TECHNIQUE: Axial images were obtained at 5 mm thick sections. Reconstructed images are reviewed on [facility] computer in the coronal plane. FINDINGS: There is been an interval dissection. Dissection ages on clear. Dissection appears to begin at the ao rtic root and extends to at least the level of the main pulmonary artery. A second dissection is at t he anterior proximal aortic arch to the left of midline. This aortic arch dissection was not identifi ed on the comparison study. There are no comparison CT chest images. Thoracic aorta: The ascending thoracic aorta at the aortic root measures 6.4 cm. There appears to be some thrombus which may be in the false lumen of the aorta. Flow lumen at the aortic root is 3.9 cm. The aorta at the level of the main pulmonary artery has a transverse dimension is 7.1 cm. The flow joni men is 5.6 cm at this level. The proximal aortic arch has a transverse dimension of 4.8 cm. The mid t ransverse dimension of the aortic arch at the level of the partial dissection is 4.5 cm. The posterio r aortic arch transverse dimension is 4.0 cm. The descending thoracic aorta tapers through its visual ized course. The diaphragm this has an AP dimension of 3.3 cm. Abdominal aorta: Celiac axis, superior mesenteric artery and bilateral renal arteries are patent. The re is an aortic stent beginning at the level of the aortic arteries. No extravasation of contrast int o the previous aneurysm of the abdominal aorta is evident. Greatest AP diameter is 4.9 cm. Contrast r emains within the stent. Common iliac stent caliber and proximal external iliac arteries are normal. Internal iliac arteries are normal. Common femoral arteries are normal. Portion of the thyroid visualized is normal. There is a punctate nodularity within the right middle lobe measuring 0.3 cm. Series 23 image 63. No enlarged mediastinal or hilar adenopathy is evident. The ascending aorta flow lumen AP diameter at the level of the main pulmonary artery is 5.6 cm. The main pulmonary artery diameter at the bifur cation is 2.[address] abdomen and pelvis: Liver may have mild diminished density in relation to the spleen. Spleen and l iver without masses or cysts. A splenule is posterior lateral to the spleen. The adrenal glands are n ormal. Kidneys appear normal without masses cysts or hydronephrosis. Cholelithiasis is present. The p ancreas appears normal. Study is without oral contrast limiting bowel evaluation. Loops of bowel with in the abdomen and pelvis appear within normal limits. Note is made of diverticular changes without a cute diverticulitis within the sigmoid colon. Urinary bladder as visualized is normal. The appendix i s not identified. The prostate is somewhat prominent. IMPRESSIONS: 1. Ascending thoracic aortic aneurysm and dissection. A second dissection appears to be present at th e level of the aortic arch without extension posteriorly or in the great vessels. Findings appear to be an interval change from 05/20/2019 where comparable. Aortic root cannot be evaluated for change, th is area was not previously evaluated at this location by radiographs. Ascending thoracic aortic aneur ysm measures 6.4 cm at the aortic root, up to 7 cm in greatest dimension at the level of main pulmona ry artery and tapers from 4.8 to 4.5 to 4.0 cm to the level of the aortic arch. 2. No suspicious extravasation of contrast through the abdominal aortic stent. A [place] critical message alert has been initiated for Pao Mak MD via the [employer] Critical Results System on 01/12/2020 11:34 AM. This message alert has been sent to Pao Mak MD via the preferences provided by the clinician for the receipt of Radiology Critical Findings. AppSame e ID [id number].
== END 2020-01-12 10:27 | disposition home or self-care (01) ==
LOC: CATHCVL 05:59
PROVIDERS: ATTEND Internal Medicine Interventional Cardiology
DX: I08.3 Combined rheumatic disorders of mitral, aortic and tricuspid valves (principal); I48.11 Longstanding persistent atrial fibrillation; I71.01 Dissection of thoracic aorta; I71.4 Abdominal aortic aneurysm, without rupture; I42.8 Other cardiomyopathies; I10 Essential (primary) hypertension; E78.2 Mixed hyperlipidemia; I73.9 Peripheral vascular disease, unspecified; C91.10 Chronic lymphocytic leukemia of B-cell type not having achieved remission; Z79.01 Long term (current) use of anticoagulants; Z79.899 Other long term (current) drug therapy; Z88.4 Allergy status to anesthetic agent; Z72.0 Tobacco use; Z95.828 Presence of other vascular implants and grafts
CPT/HCPCS: 93312; 93320; 93325; 92960; 71275; 74174; J2704; Q9967

== ENCOUNTER → 2020-01-22 | Outpatient (CLI) | payer MEDICARE, BC ==
[~2020-01-22] MED LIST changes: +ASPIRIN 325 MG TAB ONE; -SODIUM CHLORIDE 0.9% 1,000 ML IV SCH
== END | disposition home or self-care (01) ==
LOC: LABWHC1 10:24
PROVIDERS: ATTEND Internal Medicine Interventional Cardiology
DX: Z11.59 Encounter for screening for other viral diseases (principal)

== ENCOUNTER → 2020-01-23 | Day surgery (SDC) | payer MEDICARE, BC ==
[2020-01-22 09:04] VITALS: BMI 23.1
[~2020-01-23] MED LIST changes: +ALPRAZolam 0.25 MG TAB PO PRN; +ALPRAZolam 0.5 MG TAB PO PRN; -ASPIRIN 325 MG TAB ONE; +ASPIRIN 325 MG TAB PO STA; +ATORVASTATIN 40 MG TAB PO SCH; +HEPARIN SODIUM 1,000 UN/ML (10ML VL) IV ONE; +HEPARIN SODIUM 1,000 UN/ML (10ML VL) ONE; +IOPAMIDOL-370 125ML BTL INJ ONE; +LIDOCAINE 1% INJ 10MG/ML (20 ML MDV) ONE; +LIDOCAINE 1% INJ 10MG/ML (20 ML MDV) SQ ONE; +LISINOPRIL-HCTZ 20-12.5 MG 1 EACH TAB PO SCH; +METOPROLOL TARTRATE 25 MG TAB PO SCH; +NITROGLYCERIN SL TABS 0.4 MG TAB SUBLINGUAL PRN; +RX INFO: IV CONTRAST WAS GIVEN 1 EACH MISC MISCELLANE PRN; +SODIUM CHLORIDE 0.9% 1,000 ML IV SCH; +SODIUM CHLORIDE 0.9% 1,000 ML in EMPTY BAG 1 BAG IV ONE; +VERAPAMIL 2.5 MG/ML 2 ML AMP ONE; +VERAPAMIL SYRINGE (5 MG/10 ML) INTRAARTER ONE; +fentaNYL (PF) 50 MCG/ML 2 ML AMP IVP ONE; +fentaNYL (PF) 50 MCG/ML 2 ML AMP ONE
[2020-01-23 11:41] VITALS: RESP 18; TEMP 98.1
[2020-01-23 11:46] LABS: Basophils # (A) 0.1 k/uL (0-0.2); Basophils % (A) 1 %; Eosinophils # (A) 0.1 k/uL (0-0.7); Eosinophils % (A) 1 %; HCT 45.4 % (39.0-53.0); HGB 14.1 gm/dL (13.0-17.5); Hypochromasia Slight; Lymphocytes # (A) 5.9 k/uL (1.0-4.8); Lymphocytes % (A) 43 %; MCHC 31.1 g/dL (31.0-37.0); MCV 89.9 fL (80.0-100.0); Mean Platelet Volume 7.8; Monocytes # (A) 0.7 k/uL (0-1.0); Monocytes % (A) 5 %; Neutrophils # (A) 6.5 k/uL (1.3-7.7); Neutrophils % (A) 47 %; Platelet Count 278 k/uL (150-450); RBC 5.05 m/uL (4.30-5.90); WBC 13.6 k/uL (3.8-10.6)
[2020-01-23 11:57] LABS: African American GFR (CKD) >90 (>60 ml/min/1.73 sqM); Anion Gap 11 mmol/L; Blood Urea Nitrogen 16 mg/dL (9-20); Calcium 9.6 mg/dL (8.4-10.2); Carbon Dioxide 25 mmol/L (22-30); Chloride 103 mmol/L (98-107); Glucose 115 mg/dL (74-99); Non-African American GFR(CKD) >90 (>60 ml/min/1.73 sqM); Potassium 4.2 mmol/L (3.5-5.1); Sodium 139 mmol/L (137-145)
[2020-01-23 12:41] LABS: O2 Sat Blood Gas 97.8 %
[2020-01-23 12:46] LABS: O2 Sat Blood Gas 74.7 %; O2 Sat Blood Gas 78.3 %
--- NOTE | 2020-01-23 16:08 | LTR ---
January 23, 2020 To: Dr. Lucio Avila Regarding: Macario Garcias (42) Dear Dr. Avila: I had the pleasure of performing cardiac catheterization on Mr. Garcias at [facility] on January 22. A full copy of the procedure note will be forwarded to you. IN brief, the patient was found to have mild to moderate triple-vessel coronary artery disease with no evidence of high-grade stenosis. Based on those findings, I have recommended proceeding with ascending aortic repair and evaluation for mitral valve repair. I will keep you updated on his progress. Thank you again for allowing me to participate in his care. Please feel free to call with any questions. Sincerely yours, Pao Mak M.D. JAYE / LATASHA: [id number] /
--- NOTE | 2020-01-23 16:08 | CC ---
CARDIAC CATHETERIZATION REPORT Mr. Garcias is a 79-year-old with a known history of abdominal aortic aneurysm repair, history of hypertension and hyperlipidemia who recently presented with atrial fibrillation and was anticoagulated. Subsequently he underwent RICHAR-guided cardioversion with anabaptist of sinus mechanism. At that time he was noted to have significant dilatation of the ascending aorta that was confirmed by CT angiogram of the chest. Subsequently the patient was seen by Dr. Serna at [facility] for ascending aortic repair. Because of the finding, recommendation was made regarding cardiac catheterization. The procedure, its risks and complications were discussed with the patient, who was in full understanding and agreement. PROCEDURE DESCRIPTION: Patient was brought to the concrete plant laborer in fasting, semi-sedated state after receiving fentanyl and Benadryl and achieving moderate conscious sedated state. Using Xylocaine anesthesia and Seldinger technique, a 6-Anguillan sheath was introduced in the right radial artery. Attempts to exchange the venous angiocatheter in the cephalic vein were unsuccessful because of a kink in the Angiocath. At that time, the catheters were removed. Pressure was applied. Using Xylocaine anesthesia and Seldinger technique, an 8-Anguillan sheath was introduced in the right femoral vein. Selective right and left coronary angiography was performed using 4 bend 5-Anguillan right and left Kel catheters. Multiple views were taken of the coronary arteries, including hemiaxial views. Following that, right heart catheterization was performed using Fanwood-Mariano catheter. Multiple pressures and samples were obtained. Cardiac output by thermodilution was calculated. Following that, catheter and sheaths were removed. Hemostasis was obtained with deployment of a TR band and compression of the right femoral vein. There was no immediate complication. Patient was returned to his room in stable condition. Of note, the patient received 4000 units of intravenous heparin as well as intra-arterial verapamil. FINDINGS: HEMODYNAMICS: Pulmonary artery systolic pressure of 24 with a diastolic of 6 and a mean of 10 mmHg. Pulmonary capillary wedge pressure A-wave of 12, V-wave of 10 with a mean of 8 mmHg. Right ventricular systolic pressure of 30 with a diastolic of 4 mmHg. Right atrium A-wave of 6, V-wave of 4 with a mean of 3 mmHg. CO by thermal dilution 5.1 l/min, and by Naima 5.6 l/min. RA sat 78%, PA sat 75%, Arterial saturation 98%. FLUOROSCOPY: There was calcification involving the right coronary system as well as the left main and the LAD. LEFT MAIN: This is a short-sized vessel, large in caliber, bifurcating into left circumflex, left anterior descending artery. Left main coronary artery has no evidence of high-grade stenosis. LEFT ANTERIOR DESCENDING ARTERY: This is a large-sized vessel reaching toward the apex with a wrap around apex segment giving rise to 3 diagonal branches. The third one is the largest in caliber after the takeoff of the first septal patient care assistant, and prior to the takeoff of the third diagonal branch there is a 40% to 50% plaque into the LAD focal. The rest of the vessel has no high-grade stenosis. LEFT CIRCUMFLEX: This is a large nondominant vessel giving rise to 3 obtuse marginal branches. The first one is the largest in caliber. The left circumflex has mild intimal disease proximally of 10% to 20% without any evidence of high-grade stenosis. RIGHT CORONARY ARTERY: This is a dominant vessel, moderate in caliber, bifurcating distally into a PDA and a small PLV. The right coronary artery proximally has a 30% to 40% plaque. The rest of the vessel has no high-grade stenosis. There is mild aneurysmal dilatation beyond the stenosis. LEFT VENTRICULOGRAM: Left ventriculogram was not performed. CONCLUSION: 1. Calcified coronary arteries. 2. No evidence of pulmonary hypertension. 3. Mild triple-vessel coronary artery disease with no evidence of high-grade stenosis. RECOMMENDATIONS: In view of findings and anatomy, I recommended proceeding with ascending aortic valve repair, and he will be evaluated for mitral valve repair as well. Those findings and recommendations were discussed with the patient and his family, who are in full understanding and agreement. Duration of procedure was 40 minutes. MMMARLINEL / IJN: [id number] / HITESH
[2020-01-23 17:20] VITALS: PULSE 61
[2020-01-23 17:24] VITALS: BP 120/66
== END | disposition home or self-care (01) ==
LOC: CATHCVL 10:52
PROVIDERS: ATTEND Internal Medicine Interventional Cardiology
DX: I25.10 Atherosclerotic heart disease of native coronary artery without angina pectoris (principal); I71.2 Thoracic aortic aneurysm, without rupture; I48.11 Longstanding persistent atrial fibrillation; I42.8 Other cardiomyopathies; I10 Essential (primary) hypertension; I73.9 Peripheral vascular disease, unspecified; E78.2 Mixed hyperlipidemia; C91.10 Chronic lymphocytic leukemia of B-cell type not having achieved remission; Z79.01 Long term (current) use of anticoagulants; Z79.899 Other long term (current) drug therapy; Z88.4 Allergy status to anesthetic agent; Z87.891 Personal history of nicotine dependence
CPT/HCPCS: 93456; 80048; 85018; 82810; 85025; C1751; C1894 ×2; C1769 ×3; J2001; J3010; J1644; Q9967

== ENCOUNTER → 2021-02-11 | Outpatient (CLI) | payer MEDICARE, BC ==
--- NOTE | 2021-02-11 12:43 | XR ---
EXAMINATION TYPE: XR lumbar spine 2 or 3V DATE OF EXAM: 02/11/2021 COMPARISON: NONE HISTORY: Back pain TECHNIQUE: 3 views lumbar spine FINDINGS: There are 5 nonrib-bearing lumbar-type vertebral bodies. There is dextrocurvature of the lumbar spine . Vertebral body heights are preserved. Multilevel endplate sclerosis is noted with lower lumbar face t arthropathy. Vascular stent is seen. 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
== END | disposition home or self-care (01) ==
LOC: RADXRMAIN 11:48
PROVIDERS: ATTEND Internal Medicine Geriatric Medicine
DX: M51.36 Other intervertebral disc degeneration, lumbar region (principal); M47.816 Spondylosis without myelopathy or radiculopathy, lumbar region
CPT/HCPCS: 72100

== ENCOUNTER 2021-04-01 09:24 | Inpatient (IN) | payer MEDICARE, BC ==
[2021-04-01] MEDS ORDERED: SODIUM CHLORIDE 0.9% 500 ML 500 ML IV STA (11:32)
[2021-04-01] MEDS ORDERED: PANTOPRAZOLE 40 MG/10 ML VIAL IVP STA (11:32)
--- NOTE | 2021-04-01 11:46 | ED ---
General Adult HPI - General Chief complaint: Recheck/Abnormal Lab/Rx Stated complaint: Sent by Dr Avila/Abnormal Lab/Recheck Time Seen by Provider: 04/01/21 11:19 Source: patient, family Mode of arrival: wheelchair Limitations: no limitations - History of Present Illness Initial comments: 80-year-old male with a past medical history of CAD, hyperlipidemia, hypertension, CLL presents to the emergency room for weakness. Patient has been declining over the past few weeks according to his . She reports he does not have an appetite and has been weak. He has lost 10 pounds over the past couple weeks. They went to the doctor and had blood work done and his hemoglobin was found to be low. She believes it was around 6.9. She also states that his white blood cell count was high but he was not sure how high. Denies fevers. Patient does admit to dark red blood in stool. Patient does have chronic back and neck pain as well but states it is not bad now. He is seeing Dr. Louise for this. Patient has no other complaints at this time including shortness of breath, chest pain, abdominal pain, nausea or vomiting, headache, or visual changes. - Related Data Home Medications Medication Instructions Recorded Confirmed Amino Acids 700 mg PO BID 05/19/19 01/22/20 Atorvastatin [Lipitor] 40 mg PO DAILY 05/19/19 01/23/20 Lisinopril-Hctz 20-12.5 mg 1 tab PO DAILY 05/19/19 01/23/20 [Zestoretic 20-12.5] Previous Rx's Medication Instructions Recorded Apixaban [Eliquis] 5 mg PO BID #60 tab 12/13/19 Metoprolol Tartrate [Lopressor] 25 mg PO BID #0 01/12/20 Allergies Allergy/AdvReac Type Severity Reaction Status Date / Time Tetanus Vaccines and Toxoid Allergy over 50 Verified 01/23/20 11:39 years ago-reaction unk novacaine Allergy Unknown Uncoded 04/01/21 09:44 Review of Systems ROS Statement: Those systems with pertinent positive or pertinent negative responses have been documented in the HPI. ROS Other: All systems not noted in ROS Statement are negative. Past Medical History Past Medical History: Coronary Artery Disease (CAD), Cancer, Hyperlipidemia, Hypertension Additional Past Medical History / Comment(s): leukemia History of Any Multi-Drug Resistant Organisms: None Reported Past Surgical History: Coronary Bypass/CABG, Heart Catheterization With Stent Additional Past Surgical History / Comment(s): Triple A Past Anesthesia/Blood Transfusion Reactions: No Reported Reaction Date of Last Stent Placement:: unable to recall Past Psychological History: No Psychological Hx Reported Smoking Status: Former smoker Past Alcohol Use History: Rare Past Drug Use History: None Reported - Past Family History Mother Family Medical History: Cancer Father Family Medical History: No Reported History General Exam Limitations: no limitations General appearance: alert Head exam: Present: atraumatic, normocephalic Eye exam: Present: normal appearance, PERRL, EOMI ENT exam: Present: normal exam, mucous membranes moist Neck exam: Present: normal inspection, full ROM. Absent: tenderness Respiratory exam: Present: normal lung sounds bilaterally. Absent: respiratory distress, wheezes Cardiovascular Exam: Present: regular rate, normal rhythm, normal heart sounds GI/Abdominal exam: Present: soft, normal bowel sounds. Absent: distended, tenderness Neurological exam: Present: alert Course Vital Signs 04/01/21 04/01/21 04/01/21 09:38 11:49 13:30 Temperature 98.6 F Pulse Rate 70 69 56 L Respiratory 18 16 16 Rate Blood Pressure 99/61 103/57 125/45 O2 Sat by Pulse 99 100 98 Oximetry EKG Findings - EKG Comments: EKG Findings:: Atrial fibrillation, ventricular rate 63, QRS duration 84, QTC is 452 Medical Decision Making - Medical Decision Making Vitals are stable. Patient does appear weak but is alert and oriented. Hemoglobin 7.6. His states it is usually 11-12 however I do not have any labs from this year and my computer. CMP is unremarkable. Occult blood is positive. Patient was given Protonix. At this time patient will be admitted for GI consultation. Dr. Childs to speak with Dr. Avila. Radiology dictation system is down right now and they're not able to complete report however they did dictate aorta aneurysm on chest x-ray in the notes on PACs. We did compare this to previous chest x-rays and it appears similar. Patient is not complaining of any chest pain and does have a history of repair of this. - Lab Data Result diagrams: 04/01/21 11:43 04/01/21 11:43 Lab Results 04/01/21 04/01/2104/01/21 Range/Units 11:40 11:43 11:43 WBC 13.6 H (3.8-10.6) k/uL RBC 2.89 L (4.30-5.90) m/uL Hgb 7.6 L (13.0-17.5) gm/dL Hct 23.4 L (39.0-53.0) % MCV 81.2 (80.0-100.0) fL MCH 26.2 (25.0-35.0) pg MCHC 32.3 (31.0-37.0) g/dL RDW 15.4 (11.5-15.5) % Plt Count 231 (150-450) k/uL MPV 8.4 Neutrophils % 77 % Lymphocytes % 14 % Monocytes % 4 % Eosinophils % 0 % Basophils % 0 % Neutrophils # 10.5 H (1.3-7.7) k/uL Lymphocytes # 1.9 (1.0-4.8) k/uL Monocytes # 0.6 (0-1.0) k/uL Eosinophils # 0.0 (0-0.7) k/uL Basophils # 0.0 (0-0.2) k/uL Hypochromasia Slight PT 11.7 (9.0-12.0) sec INR 1.1 (<1.2) APTT 26.1 (22.0-30.0) sec Sodium (137-145) mmol/L Potassium (3.5-5.1) mmol/L Chloride (98-107) mmol/L Carbon Dioxide (22-30) mmol/L Anion Gap mmol/L BUN (9-20) mg/dL Creatinine (0.66-1.25) mg/dL Est GFR (CKD-EPI)AfAm (>60 ml/min/1.73 sqM) Est GFR (CKD-EPI)NonAf (>60 ml/min/1.73 sqM) Glucose (74-99) mg/dL Plasma Lactic Acid Jose Ramon (0.7-2.0) mmol/L Calcium (8.4-10.2) mg/dL Magnesium (1.6-2.3) mg/dL Total Bilirubin (0.2-1.3) mg/dL AST (17-59) U/L ALT (4-49) U/L Alkaline Phosphatase (38-126) U/L Total Protein (6.3-8.2) g/dL Albumin (3.5-5.0) g/dL Stool Occult Blood (Negative) Blood Type O Positive Blood Type Confirm Blood Type Recheck Bld Type Recheck Status Antibody Screen NEGATIVE Spec Expiration Date 04/01/21 04/01/21 04/01/21 Range/Units 11:43 11:43 11:43 WBC (3.8-10.6) k/uL RBC (4.30-5.90) m/uL Hgb (13.0-17.5) gm/dL Hct (39.0-53.0) % MCV (80.0-100.0) fL MCH (25.0-35.0) pg MCHC (31.0-37.0) g/dL RDW (11.5-15.5) % Plt Count (150-450) k/uL MPV Neutrophils % % Lymphocytes % % Monocytes % % Eosinophils % % Basophils % % Neutrophils # (1.3-7.7) k/uL Lymphocytes # (1.0-4.8) k/uL Monocytes # (0-1.0) k/uL Eosinophils # (0-0.7) k/uL Basophils # (0-0.2) k/uL Hypochromasia PT (9.0-12.0) sec INR (<1.2) APTT (22.0-30.0) sec Sodium 134 L (137-145) mmol/L Potassium 4.3 (3.5-5.1) mmol/L Chloride 103 (98-107) mmol/L Carbon Dioxide 24 (22-30) mmol/L Anion Gap 7 mmol/L BUN 23 H (9-20) mg/dL Creatinine 1.30 H (0.66-1.25) mg/dL Est GFR (CKD-EPI)AfAm 60 (>60 ml/min/1.73 sqM) Est GFR (CKD-EPI)NonAf 52 (>60 ml/min/1.73 sqM) Glucose 139 H (74-99) mg/dL Plasma Lactic Acid Jose Ramon 1.0 (0.7-2.0) mmol/L Calcium 9.0 (8.4-10.2) mg/dL Magnesium 2.4 H (1.6-2.3) mg/dL Total Bilirubin 1.3 (0.2-1.3) mg/dL AST 42 (17-59) U/L ALT 24 (4-49) U/L Alkaline Phosphatase 80 (38-126) U/L Total Protein 6.2 L (6.3-8.2) g/dL Albumin 3.0 L (3.5-5.0) g/dL Stool Occult Blood (Negative) Blood Type Blood Type Confirm Blood Type Recheck No Previous Record Bld Type Recheck Status CABO Indicated Antibody Screen Spec Expiration Date 04/04/2021 - 234204/01/21 04/01/21 Range/Units 11:45 11:48 WBC (3.8-10.6) k/uL RBC (4.30-5.90) m/uL Hgb (13.0-17.5) gm/dL Hct (39.0-53.0) % MCV (80.0-100.0) fL MCH (25.0-35.0) pg MCHC (31.0-37.0) g/dL RDW (11.5-15.5) % Plt Count (150-450) k/uL MPV Neutrophils % % Lymphocytes % % Monocytes % % Eosinophils % % Basophils % % Neutrophils # (1.3-7.7) k/uL Lymphocytes # (1.0-4.8) k/uL Monocytes # (0-1.0) k/uL Eosinophils # (0-0.7) k/uL Basophils # (0-0.2) k/uL Hypochromasia PT (9.0-12.0) sec INR (<1.2) APTT (22.0-30.0) sec Sodium (137-145) mmol/L Potassium (3.5-5.1) mmol/L Chloride (98-107) mmol/L Carbon Dioxide (22-30) mmol/L Anion Gap mmol/L BUN (9-20) mg/dL Creatinine (0.66-1.25) mg/dL Est GFR (CKD-EPI)AfAm (>60 ml/min/1.73 sqM) Est GFR (CKD-EPI)NonAf (>60 ml/min/1.73 sqM) Glucose (74-99) mg/dL Plasma Lactic Acid Jose Ramon (0.7-2.0) mmol/L Calcium (8.4-10.2) mg/dL Magnesium (1.6-2.3) mg/dL Total Bilirubin (0.2-1.3) mg/dL AST (17-59) U/L ALT (4-49) U/L Alkaline Phosphatase (38-126) U/L Total Protein (6.3-8.2) g/dL Albumin (3.5-5.0) g/dL Stool Occult Blood Positive (Negative) Blood Type Blood Type Confirm O Positive Blood Type Recheck Bld Type Recheck Status Antibody Screen Spec Expiration Date Disposition Clinical Impression: Weakness, Anemia, GI bleed Disposition: ADMITTED IP TO THIS HOSP Is patient prescribed a controlled substance at d/c from ED?: No Referrals: Lucio Avila MD [Primary Care Provider] - 1-2 days Time of Disposition: 13:35
[2021-04-01 12:25] LABS: INR 1.1 (<1.2); Partial Thromboplastin Time 26.1 sec (22.0-30.0); Prothrombin Time 11.7 sec (9.0-12.0)
[2021-04-01 12:56] LABS: Basophils % (A) 0 %; Eosinophils % (A) 0 %; HCT 23.4 % (39.0-53.0); HGB 7.6 gm/dL (13.0-17.5); Hypochromasia Slight; Lymphocytes # (A) 1.9 k/uL (1.0-4.8); Lymphocytes % (A) 14 %; MCH 26.2 pg (25.0-35.0); MCHC 32.3 g/dL (31.0-37.0); MCV 81.2 fL (80.0-100.0); Mean Platelet Volume 8.4; Monocytes # (A) 0.6 k/uL (0-1.0); Monocytes % (A) 4 %; Neutrophils # (A) 10.5 k/uL (1.3-7.7); Neutrophils % (A) 77 %; Platelet Count 231 k/uL (150-450); RBC 2.89 m/uL (4.30-5.90); RDW 15.4 % (11.5-15.5); WBC 13.6 k/uL (3.8-10.6)
[2021-04-01 12:58] LABS: Magnesium 2.4 mg/dL (1.6-2.3); Potassium 4.3 mmol/L (3.5-5.1); Total Bilirubin 1.3 mg/dL (0.2-1.3); Total Protein 6.2 g/dL (6.3-8.2)
[2021-04-01] MEDS ORDERED: NALOXONE 0.4 MG/ML 1 ML VIAL IV PRN (13:35)
[2021-04-01] MEDS ORDERED: ONDANSETRON 4 MG/2 ML VIAL IVP PRN (13:35)
[2021-04-01] MEDS: SODIUM CHLORIDE 0.9% 1,000 ML IV SCH (14:01)
--- NOTE | 2021-04-01 14:04 | XR ---
EXAMINATION TYPE: XR chest 2V DATE OF EXAM: 04/01/2021 COMPARISON: NONE TECHNIQUE: PA and lateral views submitted. HISTORY: Weakness FINDINGS: The lungs are clear and there is no pneumothorax, pleural effusion, or focal pneumonia. There is de generative change of the spine with postoperative change and cardiac device. Aneurysmal dilation of t he aorta measuring approximately 5 cm. No overt failure. Arthropathy of the shoulders with diffuse os teopenia. IMPRESSION: 1. Findings suggestive of a 5 cm aortic aneurysm.
[2021-04-01] MEDS ORDERED: bisacodyL 5 MG TABLET.DR PO PRN (18:03)
[2021-04-01] MEDS ORDERED: ACETAMINOPHEN TAB 325 MG TAB PO PRN (18:03)
[2021-04-01] MEDS ORDERED: MELATONIN 3 MG TABLET PO PRN (18:03)
[2021-04-01] MEDS ORDERED: METHYL SALICYLATE/MENTHOL CREAM 5 OZ TOPICAL PRN (18:03)
[2021-04-01] MEDS ORDERED: NYSTATIN 100,000UNIT/GM CREAM 30 GM TUBE TOPICAL PRN (18:03)
--- NOTE | 2021-04-01 19:15 | P.HPIM ---
History of Present Illness H&P Date: 04/01/21 Chief Complaint: Acute blood loss anemia, acute gastrointestinal bleed, athe rosclerotic hear HISTORY OF PRESENT ILLNESS 80-year-old male one of my office patient is known to have history of atherosclerotic heart disease, large thoracic aneurysm postrepair at [facility] over 2 years ago with multiple complication consistent with excessive bleeding, postsurgical bleed, severe arrhythmia post pacemaker, A. fib with RVR, anemia require multiple units of blood transfusion, history of TIA and possible stroke along with hypoxic encephalopathy, debility require extended physical therapy for long time. Patient has been seen last few weeks for recurrent back pain he was seen at the for possible epidural injection and was waiting for CT of the lumbar spine to decide on pain management. Patient apparently developed in the last 10 days to have much worsening declining condition along with significant weight loss fatigue tiredness not ac ting himself developed to have significant memory loss not been able to move himself out of bed and become a lot worse. Ended up seen in the office had some blood work showed his hemoglobin significantly decreased to 6.9 from almost above 11. Patient was sent to the emergency department at [facility] for possible active acute GI bleed his hemoglobin came back in below 7. Hemoccult was positive patient be seen gastroenterology no lower abdominal pain but has been having slight upper abdominal discomfort on and off. Also patient has been on Eliquis 2.5 g twice a day for A. fib patient has been taking it is still on iron. Patient also is known to have history of CLL was seen hematology over a year ago and his W BC still in the low teen did not require much help at that time or any management. When seen patient and his apparently has not been moving out of bed has been more tired fatigue not acting himself and the has noticed significant change in mental status along with memory. Patient does not remember having any black stools or tarry stools no bright red blood per rectum. His appetite has been significantly down from before. Patient had refused to go for colonoscopy previously had coloGuarded done over a year ago came back negative patient is known to have family history of colon cancer but he absolutely refuses to go for colonoscopy earlier. REVIEW OF SYSTEMS Constitutional: No fever, no chills, no night sweats. Significant weight loss, weakness, fatigue, lethargy and daytime sleeping. EENT: No headache. No blurred vision or double vision, no loss of vision. No loss of Hearing, no ringing in the ears, no dizziness. No nasal drainage or congestion. No epistaxis. No sore throat. Lungs: No shortness of breath, cough, no sputum production. No wheezing. Cardiovascular: No chest pain, no lower extremity edema. No palpitations. No paroxysmal nocturnal dyspnea. No orthopnea. No lightheadedness or dizziness. No syncopal episodes. Abdominal: Slight abdominal discomfort with lack of appetite mild nausea with no vomiting no diarrhea slight constipation. Genitourinary: No dysuria, increased frequency, urgency. Decrease urine output. Musculoskeletal: No myalgias. No muscle weakness, no gait dysfunction, no fr equent falls. No back pain. No neck pain. Integumentary: No wounds, no lesions. No rash or pruritus. No unusual bruising. No change in hair or nails. Neurologic: No dysphagia no facial droop generalized fatigue tiredness and weakness no focal deficit at this point has not been moving much but his balance and gait has been off. Psychiatric: No depression. No anxiety. No mood swings. Endocrine: No abnormal blood sugars. No weight change. No excessive sweating or thirst. No cold intolerance. SOCIAL HISTORY Quit smoking years ago was 1 pack for 20 years, he drinks our calls socially but no alcohol last 2 years. Does not use any CPAP or oxygen at home. He is and lives with his . FAMILY HISTORY Has one child who is living and well, siblings with history of CAD and aneurysm. Mother dye from cancer most likely breast cancer, father from atherosclerotic heart disease. PHYSICAL EXAMINATION Gen: This is quite bit thin and looks like he lost quite bed weight does not look in any respiratory distress. HEENT: Head is atraumatic, normocephalic. Pupils equal, round. Sclerae is anicteric. NECK: Supple. No JVD. No lymphadenopathy. No thyromegaly. LUNGS: Clear to auscultation. No wheezes or rhonchi. No intercostal retractions. HEART: Irregular rhythm and rate is sinus to positive S3 positive JVD ABDOMEN: Soft. Bowel sounds are present. No masses. No tenderness. EXTREMITIES: No pedal edema. No calf tenderness. NEUROLOGICAL: Awake alert oriented currently nerve II through XII intact positive generalized weakness no focal deficit. ASSESSMENT AND PLAN 1. acute blood loss anemia: Patient hemoglobin down to 7 from almost 12 g, patient be hospitalized CBC be done every 8-12 hours GI consultation be done blood transfusion to keep his hemoglobin above 8. 2 acute gastrointestinal bleed: Most likely upper patient with his back pain possibly taking anti-inflammatory agent beside his Eliquis make the possibility very high patient has not admit to taking anything except Tylenol and probably muscle relaxer but he was on steroids recently. Patient be continue to keep his hemoglobin above 8 g continue GI prophylaxis with pantoprazole IV. 3 Alter mental status: Not quite sure of the etiology with the severe anemia and severe generalized weakness and fatigue possible hypertension and hypoperfusion can explain the change. 4 large thoracic aneurysm: Postrepair at [facility] back 18 month ago patient had multiple complication has been seen still I cardiothoracic surgeon regularly. 5 A. fib with RVR: Pulse rates under control, patient remain on metoprolol and Eliquis will hold Eliquis for now. 6 atherosclerotic heart disease: No chest pain or angina currently. 7 diastolic congestive heart failure: Remain on Lasix, Lopressor and smaller dose of marvel. 8 significant weight loss: The possibility of malignancy still very high at this point patient is known to have CLL with his family history of colon cancer patient might need to go for colonoscopy eventually. 9 acute kidney injury: Specially with the dehydration and hypoperfusion hydrate patient and correct blood loss and driven repeat CMP. 10 CLL: Patient white blood cells mildly elevated is not on any medication or management at this point. 11 BPH: Has been doing well on Flomax 0.4 mg daily. 12 hyperlipidemia: Continue atorvastatin at 40 mg daily. 13 chronic degenerative disc disease: Patient might require epidural injection at some point CT of the L-spine is pending at this point. 14 severe arrhythmia with sick sinus syndrome post pacemaker placement. CODE STATUS: Full code Patient will be admitted to the hospital for a minimum of 2 night stay. Past Medical History Past Medical History: Coronary Artery Disease (CAD), Cancer, Hyperlipidemia, Hypertension Additional Past Medical History / Comment(s): leukemia History of Any Multi-Drug Resistant Organisms: None Reported Past Surgical History: Coronary Bypass/CABG, Heart Catheterization With Stent Additional Past Surgical History / Comment(s): Triple A Past Anesthesia/Blood Transfusion Reactions: No Reported Reaction Date of Last Stent Placement:: unable to recall Past Psychological History: No Psychological Hx Reported Smoking Status: Former smoker Past Alcohol Use History: Rare Past Drug Use History: None Reported - Past Family History Mother Family Medical History: Cancer Father Family Medical History: No Reported History Medications and Allergies Home Medications Medication Instructions Recorded Confirmed Type Atorvastatin [Lipitor] 40 mg PO HS 05/19/19 04/01/21 History Acetaminophen [Tylenol] 325 mg PO Q4H PRN 04/01/21 04/01/21 History Apixaban [Eliquis] 2.5 mg PO BID 04/01/21 04/01/21 History Aspirin 81 mg PO DAILY 04/01/21 04/01/21 History Furosemide [Lasix] 40 mg PO DAILY 04/01/21 04/01/21 History Magnesium Oxide [Gomez] 500 mg PO BID 04/01/21 04/01/21 History Melatonin 6 mg PO HS PRN 04/01/21 04/01/21 History Menthol [Biofreeze] 1 applic TOPICAL HS PRN 04/01/21 04/01/21 History Metoprolol Tartrate [Lopressor] 25 mg PO HS 04/01/21 04/01/21 History Multivitamins, Thera [Multivitamin 1 tab PO HS 04/01/21 04/01/21 History (formulary)] Nystatin 100,000Unit/gm Cream 1 applic TOPICAL BID PRN 04/01/21 04/01/21 History [Mycostatin Cream] Pantoprazole Sodium 40 mg PO DAILY 04/01/21 04/01/21 History Polyethylene Glycol 3350 [Miralax] 17 gm PO DAILY@1200 04/01/21 04/01/21 History Tamsulosin HCl [Flomax] 0.4 mg PO DAILY 04/01/21 04/01/21 History bisacodyL [Dulcolax] 5 mg PO HS PRN 04/01/21 04/01/21 History Allergies Allergy/AdvReac Type Severity Reaction Status Date / Time procaine [From Novocain] Allergy Unknown Verified 04/01/21 13:42 Tetanus Vaccines and Toxoid Allergy over 50 Verified 04/01/21 13:42 years ago-reaction unk Physical Exam Vitals: Vital Signs Temp Pulse Resp BP Pulse Ox 04/01/21 17:00 74 18 180/99 95 04/01/21 14:01 59 L 16 101/49 100 08/10/21 13:30 56 L 16 125/45 98 04/01/21 11:49 69 16 103/57 100 04/01/21 09:38 98.6 F 70 18 99/61 99 Intake and Output 04/01/21 04/01/21 04/01/21 06:59 14:59 22:59 Other: Weight 73.028 kg Results CBC & Chem 7: 04/01/21 11:43 04/01/21 11:43 Labs: Abnormal Lab Results - Last 24 Hours (Table) 04/01/21 04/01/21 Range/Units 11:43 11:43 WBC 13.6 H (3.8-10.6) k/uL RBC 2.89 L (4.30-5.90) m/uL Hgb 7.6 L (13.0-17.5) gm/dL Hct 23.4 L (39.0-53.0) % Neutrophils # 10.5 H (1.3-7.7) k/uL Sodium 134 L (137-145) mmol/L BUN 23 H (9-20) mg/dL Creatinine 1.30 H (0.66-1.25) mg/dL Glucose 139 H (74-99) mg/dL Magnesium 2.4 H (1.6-2.3) mg/dL Total Protein 6.2 L (6.3-8.2) g/dL Albumin 3.0 L (3.5-5.0) g/dL
[2021-04-01 19:23] LABS: Appearance,Urine Clear (Clear); Bilirubin,Urine Negative (Negative); Blood,Urine Negative (Negative); Color,Urine Yellow; Glucose,Urine (UA) Negative (Negative); Ketones,Urine Negative (Negative); Leukocyte Esterase,Urine Negative (Negative); Nitrite,Urine Negative (Negative); Protein,Urine Negative (Negative); Specific Gravity,Urine 1.012 (1.001-1.035); Urobilinogen,Urine <2.0 mg/dL (<2.0)
--- NOTE | 2021-04-01 21:39 | CT ---
EXAMINATION TYPE: CT brain wo con DATE OF EXAM: 04/01/2021 COMPARISON: 05/19/2019 INDICATION: changes in MS DLP: 1092.4 mGycm, Automated exposure control for dose reduction was used. CONTRAST: None CT of the brain is performed utilizing 3 mm thick sections through the posterior fossa and 3 mm thick sections through the remaining calvarium. Study is performed within 24 hours of arrival to the hosp [facility]. No abnormal hyperdensity is present to suggest an acute intracranial hemorrhage. No mass lesion is evident. No acute infarcts are evident. Periventricular white matter hypodensity is present, likely on the bas is of chronic white matter ischemic change, similar to comparison of 2019. Ventricles and sulci are mildly prominent for the patient age. Paranasal sinuses and mastoid air cells within the [id number] are clear. IMPRESSIONS: 1. Atrophy with periventricular white matter ischemic changes, stable from comparison.
[2021-04-01] MEDS: PANTOPRAZOLE 40 MG/10 ML VIAL IVP SCH (21:55)
[2021-04-01] MEDS: ATORVASTATIN 40 MG TAB PO SCH (21:55)
[2021-04-01] MEDS: METOPROLOL TARTRATE 25 MG TAB PO SCH (21:56)
[2021-04-01] MEDS: MAGNESIUM OXIDE 400 MG TAB PO SCH (21:56)
[2021-04-02] MEDS: PANTOPRAZOLE 40 MG/10 ML VIAL IVP SCH ×2 (07:49→20:52)
[2021-04-02] MEDS: FUROSEMIDE 40 MG TAB PO SCH (07:49)
[2021-04-02] MEDS: TAMSULOSIN 0.4 MG CAP.ER.24H PO SCH (07:49)
[2021-04-02] MEDS: SODIUM CHLORIDE 0.9% 1,000 ML IV SCH ×2 (07:49→20:54)
[2021-04-02] MEDS: MAGNESIUM OXIDE 400 MG TAB PO SCH ×2 (07:53→20:52)
[2021-04-02 08:06] LABS: HGB 7.2 gm/dL (13.0-17.5); Hypochromasia Marked; MCH 26.3 pg (25.0-35.0); MCHC 31.2 g/dL (31.0-37.0); MCV 84.5 fL (80.0-100.0); Platelet Count 236 k/uL (150-450); RBC 2.72 m/uL (4.30-5.90); RDW 15.4 % (11.5-15.5); WBC 14.2 k/uL (3.8-10.6)
[2021-04-02] MEDS ORDERED: bisacodyL 5 MG TABLET.DR PO STA (10:36)
[2021-04-02] MEDS: polyethylene glycoL 3350 17 GM POWD.PACK PO SCH (11:12)
[2021-04-02 11:40] LABS: African American GFR (CKD) 66.3 (60.0-200.0); Albumin 2.8 g/dL (3.80-4.90); Albumin/Globulin Ratio 1.08 (1.60-3.17); Anion Gap 10.4 mmol/L (4.00-12.00); BUN/Creat Ratio 19.17 Ratio (12.00-20.00); Calcium 7.9 mg/dL (8.7-10.3); Carbon Dioxide 21.6 mmol/L (21.6-31.8); Globulin 2.6 g/dL (1.6-3.3); Non-African American GFR(CKD) 57.2 (60.0-200.0); Potassium 4.5 mmol/L (3.5-5.5); Total Bilirubin 1.1 mg/dL (0.2-1.2); Total Protein 5.4 g/dL (6.2-8.2)
[2021-04-02 13:14] VITALS: BMI 21.2
[2021-04-02] MEDS ORDERED: PEG 3350-NA SULF,BICARB,CL/KCL 4,000 ML BOTTLE PO ONE (14:00)
--- NOTE | 2021-04-02 14:45 | P.PN ---
Subjective Progress Note Date: 04/02/21 HISTORY OF PRESENT ILLNESS 80-year-old male one of my office patient is known to have history of atherosclerotic heart disease, large thoracic aneurysm postrepair at [facility] over 2 years ago with multiple complication consistent with excessive bleeding, postsurgical bleed, severe arrhythmia post pacemaker, A. fib with RVR, anemia require multiple units of blood transfusion, history of TIA and possible stroke along with hypoxic encephalopathy, debility require extended physical therapy for long time. Patient has been seen last few weeks for recurrent back pain he was seen at the for possible epidural injection and was waiting for CT of the lumbar spine to decide on pain management. Patient apparently developed in the last 10 days to have much worsening dec lining condition along with significant weight loss fatigue tiredness not acting himself developed to have significant memory loss not been able to move himself out of bed and become a lot worse. Ended up seen in the office had some blood work showed his hemoglobin significantly decreased to 6.9 from almost above 11. Patient was sent to the emergency department at [facility] for possible active acute GI bleed his hemoglobin came back in below 7. Hemoccult was positive patient be seen gastroenterology no lower abdominal pain but has been having slight upper abdominal discomfort on and off. Also patient has been on Eliquis 2.5 g twice a day for A. fib patient has been taking it is still on iron. Patient also is known to have history of CLL was seen hematology over a year ago and his W BC still in the low teen did not require much help at that time or any management. When seen patient and his apparently has not been moving out of bed has been more tired fatigue not acting himself and the has noticed significant change in mental status along with memory. Patient does not remember having any black stools or tarry stools no bright red blood per rectum. His appetite has been significantly down from before. Patient had refused to go for colonoscopy previously had coloGuarded done over a year ago came back negative patient is known to have family history of colon cancer but he absolutely refuses to go for colonoscopy earlier. 04/02: Patient has been seen by GI with plan for EGD and colonoscopy tomorrow which patient was agreeable to. Patient is very confused and staff and will ensure that he gets his prep done and completed. Neurology has been added for mental status changes and Narvon loss. Oncology consult regarding history of CLL. The patient remains afebrile, heart rate 69, blood pressure 108/57, pulse ox 99% on room air. WBC 14.2, hemoglobin 7.2 completely from 236. Electrolytes and renal function normal. AST 41. Patient is obtaining 750 ML on incentive spirometry. monitor technician is atrial fibrillation with controlled rate. Disch arge plan is for discharge to [facility] for subacute rehab. REVIEW OF SYSTEMS Constitutional: No fever, no chills, no night sweats. Significant weight loss, weakness, fatigue, lethargy and daytime sleeping. EENT: No headache. No blurred vision or double vision, no loss of vision. No loss of Hearing, no ringing in the ears, no dizziness. No nasal drainage or congestion. No epistaxis. No sore throat. Lungs: No shortness of breath, cough, no sputum production. No wheezing. Cardiovascular: No chest pain, no lower extremity edema. No palpitations. No paroxysmal nocturnal dyspnea. No orthopnea. No lightheadedness or dizziness. No syncopal episodes. Abdominal: Slight abdominal discomfort with lack of appetite mild nausea with no vomiting no diarrhea slight constipation. Genitourinary: No dysuria, increased frequency, urgency. Decrease urine output. Musculoskeletal: No myalgias. No muscle weakness, no gait dysfunction, no frequent falls. No back pain. No neck pain. Integumentary: No wounds, no lesions. No rash or pruritus. No unusual bruising. No change in hair or nails. Neurologic: No dysphagia no facial droop generalized fatigue tiredness and w eakness no focal deficit at this point has not been moving much but his balance and gait has been off. Short-term memory deficit, confusion. Psychiatric: No depression. No anxiety. No mood swings. Endocrine: No abnormal blood sugars. No weight change. No excessive sweating or thirst. No cold intolerance. PHYSICAL EXAMINATION Gen: This is a thin 80-year-old male. He is fasting bed and appears comfortable and in no acute distress. Patient's daughter is at bedside. HEENT: Head is atraumatic, normocephalic. Pupils equal, round. Sclerae is anicteric. NECK: Supple. No JVD. No lymphadenopathy. No thyromegaly. LUNGS: Clear to auscultation. No wheezes or rhonchi. No intercostal retractions. HEART: Irregular rhythm and rate is sinus to positive S3 positive JVD ABDOMEN: Soft. Bowel sounds are present. No masses. No tenderness. EXTREMITIES: No pedal edema. No calf tenderness. NEUROLOGICAL: Awake alert oriented to person, currently nerve II through XII intact positive generalized weakness no focal deficit. ASSESSMENT AND PLAN 1. acute blood loss anemia: Patient hemoglobin down to 7 from almost 12 g, patient be hospitalized CBC be done every 8-12 hours GI consultation be done blood transfusion to keep his hemoglobin above 8. 2 acute gastrointestinal bleed: Most likely upper patient with his back pain possibly taking anti-inflammatory agent beside his Eliquis make the possibility very high patient has not admit to taking anything except Tylenol and probably muscle relaxer but he was on steroids recently. Patient be continue to keep his hemoglobin above 8 g continue GI prophylaxis with pantoprazole IV. 3. Metabolic encephalopathy, no clear etiology with the severe anemia and severe generalized weakness and fatigue possible hypertension and hypoperfusion can explain the change. 4 large thoracic aneurysm: Postrepair at [facility] back 18 month ago patient had multiple complication has been seen still I cardiothoracic surgeon regularly. 5 A. fib with RVR, paroxysmal atrial fibrillation: Pulse rates under control, patient remain on metoprolol and Eliquis will hold Eliquis for now. 6 atherosclerotic heart disease: No chest pain or angina currently. 7 diastolic congestive heart failure: Remain on Lasix, Lopressor and smaller dose of marvel. 8 significant weight loss: The possibility of malignancy still very high at this point patient is known to have CLL with his family history of colon cancer patient might need to go for colonoscopy eventually. 9 acute kidney injury: Specially with the dehydration and hypoperfusion hydrate patient and correct blood loss and driven repeat CMP. 10 CLL: Patient white blood cells mildly elevated is not on any medication or management at this point. 11 BPH: Has been doing well on Flomax 0.4 mg daily. 12 hyperlipidemia: Continue atorvastatin at 40 mg daily. 13 chronic degenerative disc disease: Patient might require epidural injection at some point CT of the L-spine is pending at this point. 14 severe arrhythmia with sick sinus syndrome post pacemaker placement. CODE STATUS: Full code [facility] Impression and plan of care have been directed as dictated by the signing physician. Nathalia Frausto nurse practitioner acting as scribe for signing physician. Objective - Vital Signs Vital signs: Vital Signs Temp 98.5 F 04/02/21 02:00 Pulse 69 04/02/21 02:00 Resp 18 04/02/21 02:00 BP 108/57 04/02/21 02:00 Pulse Ox 99 04/02/21 02:00 Intake & Output 04/01/21 04/02/21 04/02/21 18:59 06:59 18:59 Intake Total 0 Balance 0 Weight 73.028 kg Intake: Oral 0 Other: Voiding Method Toilet Toilet Urinal Urinal # Voids 2 - Labs CBC & Chem 7: 04/02/21 06:21 04/02/21 06:21 Labs: Abnormal Lab Results - Last 24 Hours (Table) 04/01/21 04/01/21 04/01/21 Range/Units 11:43 11:43 19:26 WBC 13.6 H (3.8-10.6) k/uL RBC 2.89 L (4.30-5.90) m/uL Hgb 7.6 L (13.0-17.5) gm/dL Hct 23.4 L (39.0-53.0) % Neutrophils # 10.5 H (1.3-7.7) k/uL Sodium 134 L (137-145) mmol/L BUN 23 H (9-20) mg/dL Creatinine 1.30 H (0.66-1.25) mg/dL Glucose 139 H (74-99) mg/dL Magnesium 2.4 H 2.4 H (1.6-2.3) mg/dL Total Protein 6.2 L (6.3-8.2) g/dL Albumin 3.0 L (3.5-5.0) g/dL 04/02/21 Range/Units 06:21 WBC 14.2 H (3.8-10.6) k/uL RBC 2.72 L (4.30-5.90) m/uL Hgb 7.2 L (13.0-17.5) gm/dL Hct 23.0 L (39.0-53.0) % Neutrophils # (1.3-7.7) k/uL Sodium (137-145) mmol/L BUN (9-20) mg/dL Creatinine (0.66-1.25) mg/dL Glucose (74-99) mg/dL Magnesium (1.6-2.3) mg/dL Total Protein (6.3-8.2) g/dL Albumin (3.5-5.0) g/dL
--- NOTE | 2021-04-02 15:37 | P.CNNES ---
History of Present Illness Consult date: 04/02/21 Requesting physician: Nathalia Frausto Reason for Consult: Mental status change and memory loss History of Present Illness: Patient is a 80-year-old male came to the hospital yesterday at 9:24 AM. Patient not able to provide much history, as he just wants to go home. I spoke to patient's on the phone, who states that patient has been feeling generalized weakness for last couple weeks. He just lays in bed, sleeps all day, which has got worse in the last 4-5 days. Sometimes he is not aware where he is at. He was seen by his primary physician Dr. Avila, who performed some blood testing in the office, in which he had significant anemia 7.9 whereas baseline is around 12. He was referred to the hospital for further evaluation. Patient has been declining over the past few weeks according to patient's . She has reported that patient has no appetite and has been feeling weak. He has lost 12 pounds over the past couple weeks. She has not noticed any focal symptoms or strokelike symptoms. Patient is going for colonoscopy and endoscopy tomorrow. Patient's states that he is forgetful more than he used to be but not all the time. He currently lives with his . Vital signs on arrival blood pressure 99/61, pulse is 70, temperature 98.6. The blood pressure did improve and went up to 180/99 but not back to 117/66. Computed tomography scan of head showed atrophy with periventricular white matter ischemic changes, stable from comparison. Chest x-ray showed findings suggestive of a 5 cm aortic aneurysm. EKG shows atrial fibrillation, nonspecific ST abnormality, probable digitalis effect. Patient has a previous CTA of head and neck on 05/20/2019, which revealed approximately 50% narrowing left ICA origin. Normal [place]. Blood tests shows WBC 13.6, which is gone to 14.2. Hemoglobin 7.6. Platelets are 231. PT/PTT normal. Sodium 134 potassium 4.3, BUN 23, creatinine 1.30. Hepatic panel is normal. UA negative. Stool occult blood positive. Patient takes Lipitor 40 mg, magnesium, Protonix 40 mg, multivitamins, aspirin 81 mg, Lasix 40 mg, metoprolol 25 mg at bedtime, Eliquis 2.5 mg twice a day. Review of Systems As above in detail. Patient denies any chest pain, abdominal pain. He did not cooperate with review of systems check. ROS unobtainable: due to mental status Past Medical History Past Medical History: Coronary Artery Disease (CAD), Cancer, Hyperlipidemia, Hypertension Additional Past Medical History / Comment(s): leukemia History of Any Multi-Drug Resistant Organisms: None Reported Past Surgical History: Coronary Bypass/CABG, Heart Catheterization With Stent Additional Past Surgical History / Comment(s): Triple A Past Anesthesia/Blood Transfusion Reactions: No Reported Reaction Date of Last Stent Placement:: unable to recall Past Psychological History: No Psychological Hx Reported Smoking Status: Former smoker Past Alcohol Use History: Rare Past Drug Use History: None Reported - Past Family History Mother Family Medical History: Cancer Father Family Medical History: No Reported History Medications and Allergies Home Medications Medication Instructions Recorded Confirmed Type Atorvastatin [Lipitor] 40 mg PO HS 05/19/19 04/01/21 History Acetaminophen [Tylenol] 325 mg PO Q4H PRN 04/01/21 04/01/21 History Apixaban [Eliquis] 2.5 mg PO BID 04/01/21 04/01/21 History Aspirin 81 mg PO DAILY 04/01/21 04/01/21 History Furosemide [Lasix] 40 mg PO DAILY 04/01/21 04/01/21 History Magnesium Oxide [Gomez] 500 mg PO BID 04/01/21 04/01/21 History Melatonin 6 mg PO HS PRN 04/01/21 04/01/21 History Menthol [Biofreeze] 1 applic TOPICAL HS PRN 04/01/21 04/01/21 History Metoprolol Tartrate [Lopressor] 25 mg PO HS 04/01/21 04/01/21 History Multivitamins, Thera [Multivitamin 1 tab PO HS 04/01/21 04/01/21 History (formulary)] Nystatin 100,000Unit/gm Cream 1 applic TOPICAL BID PRN 04/01/21 04/01/21 History [Mycostatin Cream] Pantoprazole Sodium 40 mg PO DAILY 04/01/21 04/01/21 History Polyethylene Glycol 3350 [Miralax] 17 gm PO DAILY@1200 04/01/21 04/01/21 History Tamsulosin HCl [Flomax] 0.4 mg PO DAILY 04/01/21 04/01/21 History bisacodyL [Dulcolax] 5 mg PO HS PRN 04/01/21 04/01/21 History Allergies Allergy/AdvReac Type Severity Reaction Status Date / Time procaine [From Novocain] Allergy Unknown Verified 04/01/21 13:42 Tetanus Vaccines and Toxoid Allergy over 50 Verified 04/01/21 13:42 years ago-reaction unk Physical Examination - Vital Signs Vital Signs: Vital Signs Temp Pulse Pulse Resp BP BP Pulse Ox 04/02/21 02:00 98.5 F 69 18 108/57 99 04/01/21 20:50 98.1 F 73 18 132/78 97 04/01/21 20:08 98.0 F 82 16 117/66 94 L 04/01/21 17:00 74 18 180/99 95 04/01/21 14:01 59 L 16 101/49 100 04/01/21 13:30 56 L 16 125/45 98 04/01/21 11:49 69 16 103/57 100 Intake and Output 04/01/21 04/02/21 04/02/21 22:59 06:59 14:59 Intake Total 0 Balance 0 Intake: Oral 0 Other: Voiding Method Toilet Toilet Urinal Urinal # Voids 2 Patient is an elderly male, in no acute distress. Patient is alert awake, has slow mentation, prolonged latency time to answer questions. Speech and language functions are normal. No aphasia or dysarthria. Attention, concentration and fund of knowledge is limited. Patient has positive palmomental reflex as well as visuospatial apraxia. On cranial examination, pupils are round and reacting to light, visual alonzo are full on confrontation, extraocular muscles are intact with no nystagmus. Face is symmetric, tongue protrudes to the midline. Palatal elevation and sensation normal, hearing is at least moderately decreased and shoulder shrug normal, facial sensation normal. On muscle strength testing, there is no pronator drift and the strength is normal in arms distally and proximally. In the lower extremities his hip flexion is 5, ankle dorsiflexion 5, toe extension is 3-4 bilaterally. Patient has bilateral hallux valgus. Deep tendon reflexes are (right/left) biceps 1/2, brachioradialis 1/2, knees 1+2/1+2, ankles 1/1 and plantars downgoing bilaterally. Sensory to touch is equal with no neglect. Cerebellar function showed no ataxia for [id number] testing. No dysdiadochokinesia. Tone of muscles normal. Gait not checked. On general examination, there is mild carotid bruit bilateral, patient has mild murmur radiating to the neck, S1-S2 audible. Abdomen is soft nontender. Chest is clear. Peripheral pulses are present. No edema. Results - Laboratory Findings CBC and BMP: 04/02/21 06:21 04/02/21 06:21 Abnormal Lab Findings: Abnormal Labs 04/01/21 04/01/21 04/01/21 11:43 11:43 19:26 WBC 13.6 H RBC 2.89 L Hgb 7.6 L Hct 23.4 L Neutrophils # 10.5 H Sodium 134 L BUN 23 H Creatinine 1.30 H Glucose 139 H Magnesium 2.4 H 2.4 H Total Protein 6.2 L Albumin 3.0 L 04/02/21 06:21 WBC 14.2 H RBC 2.72 L Hgb 7.2 L Hct 23.0 L Neutrophils # Sodium BUN Creatinine Glucose Magnesium Total Protein Albumin Assessment and Plan Assessment: * Altered mental status, possible delirium. Cannot rule out underlying cognitive impairment. * Acute anemia with positive occult blood, unclear cause. * Atrial fibrillation, currently on anticoagulation with Apixaban 2.5 mg twice a day. * History of moderate left ICA stenosis * Mild renal insufficiency, likely due to dehydration, improved now. Plan: * Carotid Doppler, as patient has history of moderate left ICA stenosis in 2019, and also has bilateral bruit. * Agree with checking B12, folate, TSH, MMA. * EEG, rule out epileptiform activity versus encephalopathy. * Patient to undergo EGD and colonoscopy tomorrow. * We will follow clinically.
--- NOTE | 2021-04-02 17:01 | P.CONS ---
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 Patient reportedly had a low hemoglobin and was sent in for further evaluation. Patient's daughter is at the bedside and states that the patient has been declining over the last 2 weeks, not eating well and has lost approximately 12 pounds. The patient has had no previous history of peptic ulcer disease, GI bleed, EGD or colonoscopy. Patient had acholic are one year ago which he states was negative. According to chart documentation patient has a history of anemia and has required blood transfusions although patient and daughter do not recall this. On admission he was noted to have a hemoglobin of 7.6. Today's repeat labs show WBC 14, hemoglobin 7.2, hematocrit 23, platelet count 236,000, INR 1.1, total bilirubin 1.3, alkaline phosphatase 80, AST 42, ALT 24. Patient states he is unsure if he has had any blood in his stools but states that they may be dark. States he has had abdominal pain that is diffuse for the last 3 weeks duration. Decreased appetite. Patient also is known to have history of CLL was seen hematology over a year ago. Review of Systems REVIEW OF SYSTEMS: CARDIOPULMONARY: No chest pain or shortness of breath. Gastrointestinal: Diffuse abdominal pain 3 weeks.. No nausea or vomiting. No hematemesis, coffee-ground emesis. No rectal bleeding, or melena. Possible dark stool, decreased appetite, weight loss of 12 pounds in 1-2 weeks. GENITOURINARY: No dysuria or hematuria. MUSCULOSKELETAL: Reports normal range of motion., Joint pain. SKIN: No rashes. No jaundice. ENDOCRINE: No chills, fevers. Weight loss 12 pounds in 1-2 weeks. No polydipsia or polyuria. PSYCHIATRIC: Unremarkable. NEUROLOGY: No change in mental status. Denies dizziness, headache. ENT: Vision unremarkable. CONSTITUTIONAL: No fever, chills, night sweats. Past Medical History Past Medical History: Coronary Artery Disease (CAD), Cancer, Hyperlipidemia, Hypertension Additional Past Medical History / Comment(s): leukemia History of Any Multi-Drug Resistant Organisms: None Reported Past Surgical History: Coronary Bypass/CABG, Heart Catheterization With Stent Additional Past Surgical History / Comment(s): Triple A Past Anesthesia/Blood Transfusion Reactions: No Reported Reaction Date of Last Stent Placement:: unable to recall Past Psychological History: No Psychological Hx Reported Smoking Status: Former smoker Past Alcohol Use History: Rare Past Drug Use History: None Reported - Past Family History Mother Family Medical History: Cancer Father Family Medical History: No Reported History Medications and Allergies Home Medications Medication Instructions Recorded Confirmed Type Atorvastatin [Lipitor] 40 mg PO HS 05/19/19 04/01/21 History Acetaminophen [Tylenol] 325 mg PO Q4H PRN 04/01/21 04/01/21 History Apixaban [Eliquis] 2.5 mg PO BID 04/01/21 04/01/21 History Aspirin 81 mg PO DAILY 04/01/21 04/01/21 History Furosemide [Lasix] 40 mg PO DAILY 04/01/21 04/01/21 History Magnesium Oxide [Gomez] 500 mg PO BID 04/01/21 04/01/21 History Melatonin 6 mg PO HS PRN 04/01/21 04/01/21 History Menthol [Biofreeze] 1 applic TOPICAL HS PRN 04/01/21 04/01/21 History Metoprolol Tartrate [Lopressor] 25 mg PO HS 04/01/21 04/01/21 History Multivitamins, Thera [Multivitamin 1 tab PO HS 04/01/21 04/01/21 History (formulary)] Nystatin 100,000Unit/gm Cream 1 applic TOPICAL BID PRN 04/01/21 04/01/21 History [Mycostatin Cream] Pantoprazole Sodium 40 mg PO DAILY 04/01/21 04/01/21 History Polyethylene Glycol 3350 [Miralax] 17 gm PO DAILY@1200 04/01/21 04/01/21 History Tamsulosin HCl [Flomax] 0.4 mg PO DAILY 04/01/21 04/01/21 History bisacodyL [Dulcolax] 5 mg PO HS PRN 04/01/21 04/01/21 History Allergies Allergy/AdvReac Type Severity Reaction Status Date / Time procaine [From Novocain] Allergy Unknown Verified 04/01/21 13:42 Tetanus Vaccines and Toxoid Allergy over 50 Verified 04/01/21 13:42 years ago-reaction unk Physical Exam Vitals: Vital Signs Temp Pulse Pulse Resp BP BP Pulse Ox 04/02/21 02:00 98.5 F 69 18 108/57 99 04/01/21 20:50 98.1 F 73 18 132/78 97 04/01/21 20:08 98.0 F 82 16 117/66 94 L 04/01/21 17:00 74 18 180/99 95 04/01/21 14:01 59 L 16 101/49 100 04/01/21 13:30 56 L 16 125/45 98 04/01/21 11:49 69 16 103/57 100 Intake and Output 04/01/21 04/02/21 04/02/21 22:59 06:59 14:59 Intake Total 0 Balance 0 Intake: Oral 0 Other: Voiding Method Toilet Toilet Urinal Urinal # Voids 2 General appearance: The patient is alert, oriented, appears in no acute distress. HET: Head is normocephalic and atraumatic. Conjunctiva pink. Sclera anicteric. Neck: Supple without lymphadenopathy. Trachea midline. Heart: S1 S2. Regular rate and rhythm. Lungs: Clear to auscultation. Abdomen: Soft, diffuse tenderness, nondistended with bowel sounds. No guarding or rigidity. Skin: No rashes. No jaundice. Extremities: Normal skin color and turgor. No pedal edema. Neurological: No focal deficits. Alert and oriented 3.. Results CBC & Chem 7: 04/02/21 06:21 04/02/21 06:21 Labs: Abnormal Lab Results - Last 24 Hours (Table) 04/01/21 04/01/21 04/01/21 Range/Units 11:43 11:43 19:26 WBC 13.6 H (3.8-10.6) k/uL RBC 2.89 L (4.30-5.90) m/uL Hgb 7.6 L (13.0-17.5) gm/dL Hct 23.4 L (39.0-53.0) % Neutrophils # 10.5 H (1.3-7.7) k/uL Sodium 134 L (137-145) mmol/L BUN 23 H (9-20) mg/dL Creatinine 1.30 H (0.66-1.25) mg/dL Glucose 139 H (74-99) mg/dL Magnesium 2.4 H 2.4 H (1.6-2.3) mg/dL Total Protein 6.2 L (6.3-8.2) g/dL Albumin 3.0 L (3.5-5.0) g/dL 04/02/21 Range/Units 06:21 WBC 14.2 H (3.8-10.6) k/uL RBC 2.72 L (4.30-5.90) m/uL Hgb 7.2 L (13.0-17.5) gm/dL Hct 23.0 L (39.0-53.0) % Neutrophils # (1.3-7.7) k/uL Sodium (137-145) mmol/L BUN (9-20) mg/dL Creatinine (0.66-1.25) mg/dL Glucose (74-99) mg/dL Magnesium (1.6-2.3) mg/dL Total Protein (6.3-8.2) g/dL Albumin (3.5-5.0) g/dL Assessment and Plan (1) Anemia Narrative/Plan: 80-year-old male who presented to the emergency department per abnormal outpatient labs. Patient had a low hemoglobin and was told to come to the emergency department for further evaluation. Patient has multiple comorbidities and has significant coronary artery disease, atrial fibrillation taking Eliquis is currently on hold. Patient denies any previous history of GI bleed, denies any history of peptic ulcer disease. He states he does not take any NSAIDs, only Tylenol as needed for pain. He has not had a EGD or colonoscopy in the past. He did have a cold guard last year which was negative. He does have a family history of colon cancer, his brother. Patient states he's been having abdominal pain is diffuse, for the last 3 weeks duration. Denies any nausea or vomiting. He has had decreased appetite and energy. Daughter states that he has lost 12 pounds in the last week. He is unsure of blood in stool but states it may be dark. He does have a history of CLL which he was following with hematology a little over year ago. Patient did have a significant drop in his hemoglobin from a recent 11 to 7.6. Patient also had a positive occult stool. Possible etiologies could be gastrointestinal blood loss, anemia of chronic disease, or CLL. Discussed with patient and his daughter and are willing to proceed with EGD and colonoscopy. Continue to hold Eliquis, protoniX 40 mg twice a day. Current Visit: Yes Status: Acute Code(s): D64.9 - ANEMIA, UNSPECIFIED SNOMED Code(s): 466156690 (2) Fecal occult blood test positive Current Visit: Yes Status: Acute Code(s): R19.5 - OTHER FECAL ABNORMALITIES SNOMED Code(s): 80975219 (3) Atrial fibrillation with RVR Current Visit: No Status: Acute Code(s): I48.91 - UNSPECIFIED ATRIAL FIBRILLATION SNOMED Code(s): 460905076468801 Plan: 1. Clear liquid diet, nothing by mouth after midnight 2. Dulcolax 20 mg by mouth 3. Bowel prep this evening 4. Iron studies ordered 5. Daily CBC, transfuse for hemoglobin less than 7 6. Recommend oncology consult 7. Will proceed with EGD and colonoscopy tomorrow. Risks and benefits discussed both with patient and his daughter who was at the bedside. Patient is willing to proceed. 8. Protonix 40 mg twice a day 9. Hold anticoagulation Thank you for this consultation, we will continue to follow. Dr. Wong I agree with the dictator's note, documented as a scribe by Ibis Sinha.
--- NOTE | 2021-04-02 20:47 | P.CONS ---
History of Present Illness - Reason for Consult Consult date: 04/02/21 CLL, Anemia Requesting physician: Nathalia Frausto - Chief Complaint Symptomatic Anemia - History of Present Illness Mr. Garcias is a poor historian male with multiple co-morbidities. Most of history from and medical chart. He has a known history of CLL, history of anemia and bleeding post operatively and likely GI bleeding, atherosclerotic heart disease, large thoracic aneurysm postrepair at [facility] over 2 years ago with multiple complication consistent with excessive bleeding, postsurgical bleed, severe arrhythmia post pacemaker, A. fib with RVR, anemia require multiple units of blood transfusion, history of TIA and possible stroke along with hypoxic encephalopathy, debility require extended physical therapy for long time. He was brought to hospital at direction of his PCP, states he hasnt been eating or getting out of bed and having increased and worsening debility, weakness, fatigue. Hemoglobin in Dr. Peterson office was 6.9, a drop from 11 per medical chart. Hemoglobin 7.2 today. \. He does not tell me why he is here today, he wants to go home. No family at bedside and is a poor historian. Review of Systems All systems: negative Constitutional: Reports as per HPI Past Medical History Past Medical History: Coronary Artery Disease (CAD), Cancer, Hyperlipidemia, Hypertension Additional Past Medical History / Comment(s): leukemia History of Any Multi-Drug Resistant Organisms: None Reported Past Surgical History: Coronary Bypass/CABG, Heart Catheterization With Stent Additional Past Surgical History / Comment(s): Triple A Past Anesthesia/Blood Transfusion Reactions: No Reported Reaction Date of Last Stent Placement:: unable to recall Past Psychological History: No Psychological Hx Reported Smoking Status: Former smoker Past Alcohol Use History: Rare Past Drug Use History: None Reported - Past Family History Mother Family Medical History: Cancer Father Family Medical History: No Reported History Medications and Allergies Home Medications Medication Instructions Recorded Confirmed Type Atorvastatin [Lipitor] 40 mg PO HS 05/19/19 04/01/21 History Acetaminophen [Tylenol] 325 mg PO Q4H PRN 04/01/21 04/01/21 History Apixaban [Eliquis] 2.5 mg PO BID 04/01/21 04/01/21 History Aspirin 81 mg PO DAILY 04/01/21 04/01/21 History Furosemide [Lasix] 40 mg PO DAILY 04/01/21 04/01/21 History Magnesium Oxide [Gomez] 500 mg PO BID 04/01/21 04/01/21 History Melatonin 6 mg PO HS PRN 04/01/21 04/01/21 History Menthol [Biofreeze] 1 applic TOPICAL HS PRN 04/01/21 04/01/21 History Metoprolol Tartrate [Lopressor] 25 mg PO HS 04/01/21 04/01/21 History Multivitamins, Thera [Multivitamin 1 tab PO HS 04/01/21 04/01/21 History (formulary)] Nystatin 100,000Unit/gm Cream 1 applic TOPICAL BID PRN 04/01/21 04/01/21 History [Mycostatin Cream] Pantoprazole Sodium 40 mg PO DAILY 04/01/21 04/01/21 History Polyethylene Glycol 3350 [Miralax] 17 gm PO DAILY@1200 04/01/21 04/01/21 History Tamsulosin HCl [Flomax] 0.4 mg PO DAILY 04/01/21 04/01/21 History bisacodyL [Dulcolax] 5 mg PO HS PRN 04/01/21 04/01/21 History Allergies Allergy/AdvReac Type Severity Reaction Status Date / Time procaine [From Novocain] Allergy Unknown Verified 04/01/21 13:42 Tetanus Vaccines and Toxoid Allergy over 50 Verified 04/01/21 13:42 years ago-reaction unk Physical Exam Vitals: Vital Signs Temp Pulse Pulse Resp BP BP Pulse Ox 04/02/21 11:40 97.3 F L 73 17 109/67 94 L 04/02/21 02:00 98.5 F 69 18 108/57 99 04/01/21 20:50 98.1 F 73 18 132/78 97 04/01/21 20:08 98.0 F 82 16 117/66 94 L 04/01/21 17:00 74 18 180/99 95 04/01/21 14:01 59 L 16 101/49 100 Intake and Output 04/01/21 04/02/21 04/02/21 22:59 06:59 14:59 Intake Total 0 Balance 0 Intake: Oral 0 Other: Voiding Method Toilet Toilet Urinal Urinal # Voids 2 Weight 73.028 kg - Constitutional General appearance: no acute distress - EENT Eyes: EOMI ENT: hard of hearing - Neck Neck: normal ROM - Respiratory Respiratory: bilateral: diminished - Cardiovascular Rhythm: irregularly irregular - Gastrointestinal General gastrointestinal: soft, tenderness - Integumentary Integumentary: pale - Neurologic james - Musculoskeletal Musculoskeletal: generalized weakness - Psychiatric poor historian, not appropriately answering questions Results CBC & Chem 7: 04/03/21 05:35 04/02/21 06:21 Labs: Abnormal Lab Results - Last 24 Hours (Table) 04/01/21 04/02/21 04/02/21 Range/Units 19:26 06:21 06:21 WBC 14.2 H (3.8-10.6) k/uL RBC 2.72 L (4.30-5.90) m/uL Hgb 7.2 L (13.0-17.5) gm/dL Hct 23.0 L (39.0-53.0) % Est GFR (CKD-EPI)NonAf 57.2 L (60.0-200.0) Calcium 7.9 L (8.7-10.3) mg/dL Magnesium 2.4 H (1.6-2.3) mg/dL AST 41 H (14-35) U/L Total Protein 5.4 L (6.2-8.2) g/dL Albumin 2.80 L (3.80-4.90) g/dL Albumin/Globulin Ratio 1.08 L (1.60-3.17) g/dL Assessment and Plan (1) Leukocytosis Current Visit: No Status: Acute Code(s): D72.829 - ELEVATED WHITE BLOOD CELL COUNT, UNSPECIFIED SNOMED Code(s): 561617819 Plan: Assessment and Recommendations: Symptomatic Normocytic Anemia: - Patient has refused GI work-up in past - Full anemia panel ordered - Transfuse hemoglobin less than 7 History of CLL: - has not followed with program clerk in some time, appears to be close to baseline.
[2021-04-02] MEDS: ATORVASTATIN 40 MG TAB PO SCH (20:52)
[2021-04-02] MEDS: METOPROLOL TARTRATE 25 MG TAB PO SCH (20:52)
[2021-04-02 21:12] LABS: Ferritin 178.3 ng/mL (22.0-322.0)
[2021-04-02 21:49] LABS: % Iron Saturation 7.02 (15.00-50.00)
--- NOTE | 2021-04-02 22:27 | US ---
EXAMINATION TYPE: US carotid duplex BILAT DATE OF EXAM: 04/02/2021 COMPARISON: NONE CLINICAL HISTORY: Altered mental status, history of left ICA stenosi. EXAM MEASUREMENTS: RIGHT: Peak Systolic Velocity (PSV) cm/sec ----- Right CCA: 81.2 ----- Right ICA: 108.0 ----- Right ECA: 83.2 ICA/CCA ratio: 1.33 RIGHT: End Diastole cm/sec ----- Right CCA: 17.5 ----- Right ICA: 21.4 ----- Right ECA: 0.0 LEFT: Peak Systolic Velocity (PSV) cm/sec ----- Left CCA: 100.0 ----- Left ICA: 94.5 ----- Left ECA: 96.7 ICA/CCA ratio: 0.95 LEFT: End Diastole cm/sec ----- Left CCA: 19.3 ----- Left ICA: 24.2 ----- Left ECA: 0.0 VERTEBRALS (direction of flow): Right Vertebral: Antegrade Left Vertebral: Antegrade Rhythm: Normal No significant stenosis seen. Shadowing plaque noted left bulb. IMPRESSION: Is antegrade flow in the vertebral arteries. The images and measurements suggest less than 50% stenos is in both internal carotid arteries. There is bilateral plaque formation. NASCET criteria was used in interpretation of this exam? Criteria for Assigning % of Stenosis / Diameter reduction (Estimation based on the indirect measurements of the internal carotid artery velocities (ICA PSV). 1. Normal (no stenosis)=ICA PSV < 125 cm/s: ratio < 2.0: ICA EDV<40 cm/s. 2. Less than 50% stenosis=ICA PSV < 125 cm/s: ratio < 2.0: ICA EDV<40 cm/s. 3. 50 to 69% stenosis=ICA PSV of 125 to 230 cm/s: ration 2.0 ? 4.0: ICA EDV 40-100 cm/s. 4. Greater than 70% stenosis to near occlusion= ICA PSV > 230 cm/s: ratio > 4.0: ICA EDV > 100 cm/s. 5. Near occlusion= ICA PSV velocities may be low or undetectable: variable ratio and ICA EDV. 6. Total occlusion=unable to detect flow.
[2021-04-03 06:09] LABS: HCT 20.7 % (39.0-53.0); Hypochromasia Moderate; MCH 26.4 pg (25.0-35.0); MCHC 32.1 g/dL (31.0-37.0); MCV 82.4 fL (80.0-100.0); Mean Platelet Volume 8.3; Platelet Count 212 k/uL (150-450); RBC 2.51 m/uL (4.30-5.90); RDW 15.5 % (11.5-15.5); WBC 12.8 k/uL (3.8-10.6)
[2021-04-03 06:11] LABS: HGB 6.6 gm/dL (13.0-17.5)
[2021-04-03 06:12] LABS: Reticulocyte % 3.2 % (0.5-2.0)
[2021-04-03 06:24] LABS: Poikilocytosis (M) Present
[2021-04-03] MEDS: SODIUM CHLORIDE 0.9% 1,000 ML IV SCH (07:20)
[2021-04-03] MEDS ORDERED: MAGNESIUM CITRATE 296 ML BOTTLE PO STA (07:49)
[2021-04-03] MEDS: MAGNESIUM OXIDE 400 MG TAB PO SCH ×2 (08:17→19:45)
[2021-04-03] MEDS: FUROSEMIDE 40 MG TAB PO SCH (08:17)
[2021-04-03] MEDS: PANTOPRAZOLE 40 MG/10 ML VIAL IVP SCH ×2 (08:18→19:45)
[2021-04-03] MEDS: TAMSULOSIN 0.4 MG CAP.ER.24H PO SCH (08:18)
[2021-04-03 10:14] LABS: Phosphorus 3.1 mg/dL (2.4-5.1); Uric Acid 8.4 mg/dL (3.7-8.7)
[2021-04-03] MEDS: polyethylene glycoL 3350 17 GM POWD.PACK PO SCH (11:21)
--- NOTE | 2021-04-03 12:03 | P.GSCN ---
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 Rai, severe arrhythmia post pacemaker, Atrial fibrillation on Eliquis, and CLL who was sent into the emergency department for abnormal outpatient lab work. Patient reportedly had a low hemoglobin and was sent in for further evaluation. Patient's daughter is at the bedside and states that the patient has been declining over the last 2 weeks, not eating well and has lost approximately 12 pounds. He has been weak and wobbly, having some reported memory loss. The patient has had no previous history of peptic ulcer disease, GI bleed, EGD or colonoscopy. The patient reports diffuse abdominal pain over the last 3 weeks duration. As part of his workup in the emergency department he underwent a chest x-ray that showed aneurysmal dilation of the aorta measuring approximately 5 cm. No overt failure. He also underwent a CT of the brain showed atrophy with periventricular white matter ischemic changes, stable from comparison. Neurology was also consulted to see the patient due to weakness and memory loss. He underwent a carotid duplex right ICA PSV 108, ICA/CCA ratio 1.3, left ICA PSV 94.5, ICA/CCA ratio was 0.95. Impression states antegrade flow in the vertebral arteries. Images the measurement suggests less than 50% stenosis in both internal carotid arteries. There is bilateral plaque formation. The patient is scheduled for an EGD and colonoscopy today to evaluate for GI blood loss. Patient's hemoglobin this morning was 6.9 and he is receiving 1 unit of PRBC transfusion. The daughter also states January 2020 during his thoracic aneurysm repair he underwent a valve replacement, pacemaker, and had postsurgical bleed. Patient currently denies any chest pain, shortness of breath, or focal deficits. He has been having black stool. Review of Systems A 14 point review of systems was completed all pertinent positives and negatives as stated in the HPI. Past Medical History Past Medical History: Coronary Artery Disease (CAD), Cancer, Hyperlipidemia, Hypertension Additional Past Medical History / Comment(s): leukemia History of Any Multi-Drug Resistant Organisms: None Reported Past Surgical History: Coronary Bypass/CABG, Heart Catheterization With Stent Additional Past Surgical History / Comment(s): Triple A Past Anesthesia/Blood Transfusion Reactions: No Reported Reaction Date of Last Stent Placement:: unable to recall Past Psychological History: No Psychological Hx Reported Smoking Status: Former smoker Past Alcohol Use History: Rare Past Drug Use History: None Reported - Past Family History Mother Family Medical History: Cancer Father Family Medical History: No Reported History Medications and Allergies Home Medications Medication Instructions Recorded Confirmed Type Atorvastatin [Lipitor] 40 mg PO HS 05/19/19 04/01/21 History Acetaminophen [Tylenol] 325 mg PO Q4H PRN 04/01/21 04/01/21 History Apixaban [Eliquis] 2.5 mg PO BID 04/01/21 04/01/21 History Aspirin 81 mg PO DAILY 04/01/21 04/01/21 History Furosemide [Lasix] 40 mg PO DAILY 04/01/21 04/01/21 History Magnesium Oxide [Gomez] 500 mg PO BID 04/01/21 04/01/21 History Melatonin 6 mg PO HS PRN 04/01/21 04/01/21 History Menthol [Biofreeze] 1 applic TOPICAL HS PRN 04/01/21 04/01/21 History Metoprolol Tartrate [Lopressor] 25 mg PO HS 04/01/21 04/01/21 History Multivitamins, Thera [Multivitamin 1 tab PO HS 04/01/21 04/01/21 History (formulary)] Nystatin 100,000Unit/gm Cream 1 applic TOPICAL BID PRN 04/01/21 04/01/21 History [Mycostatin Cream] Pantoprazole Sodium 40 mg PO DAILY 04/01/21 04/01/21 History Polyethylene Glycol 3350 [Miralax] 17 gm PO DAILY@1200 04/01/21 04/01/21 History Tamsulosin HCl [Flomax] 0.4 mg PO DAILY 04/01/21 04/01/21 History bisacodyL [Dulcolax] 5 mg PO HS PRN 04/01/21 04/01/21 History Allergies Allergy/AdvReac Type Severity Reaction Status Date / Time procaine [From Novocain] Allergy Unknown Verified 04/01/21 13:42 Tetanus Vaccines and Toxoid Allergy over 50 Verified 04/01/21 13:42 years ago-reaction unk Surgical - Exam Vital Signs Temp Pulse Resp BP Pulse Ox 98.6 F 70 18 99/61 99 04/01/21 09:38 04/01/21 09:38 04/01/21 09:38 04/01/21 09:38 04/01/21 09:38 General appearance: The patient is alert, oriented, in no acute distress. HET: Head is normocephalic and atraumatic. Pupils are equal and reactive. Neck: Supple without lymphadenopathy. Trachea midline. No carotid bruit noted. Heart: S1 S2. Regular rate and rhythm. Lungs: Clear to auscultation. Abdomen: Soft, diffuse tenderness, nondistended with bowel sounds. Extremities: Normal skin color and turgor. No cyanosis, rash, ulceration, clubbing, or edema. Radial and pedal pulses are 2/4 bilaterally. Neurological: No focal deficits. Equal strength bilaterally upper and lower 4/5. Results - Labs 04/03/21 05:35 04/02/21 06:21 Abnormal Lab Results - Last 24 Hours (Table) 04/01/21 04/02/21 04/02/21 Range/Units 11:40 06:21 06:21 WBC (3.8-10.6) k/uL RBC (4.30-5.90) m/uL Hgb (13.0-17.5) gm/dL Hct (39.0-53.0) % Retic Count (0.5-2.0) % Est GFR (CKD-EPI)NonAf 57.2 L (60.0-200.0) Calcium 7.9 L (8.7-10.3) mg/dL Iron 16 L (65-175) ug/dL % Saturation 7.02 L (15.00-50.00) AST 41 H (14-35) U/L Lactate Dehydrogenase (120-246) U/L Total Protein 5.4 L (6.2-8.2) g/dL Albumin 2.80 L (3.80-4.90) g/dL Albumin/Globulin Ratio 1.08 L (1.60-3.17) g/dL Vitamin B12 1609.0 H (200.0-944.0) pg/mL Crossmatch See Detail 04/03/21 04/03/21 Range/Units 05:35 05:35 WBC 12.8 H (3.8-10.6) k/uL RBC 2.51 L (4.30-5.90) m/uL Hgb 6.6 L* (13.0-17.5) gm/dL Hct 20.7 L (39.0-53.0) % Retic Count 3.2 H (0.5-2.0) % Est GFR (CKD-EPI)NonAf (60.0-200.0) Calcium (8.7-10.3) mg/dL Iron (65-175) ug/dL % Saturation (15.00-50.00) AST (14-35) U/L Lactate Dehydrogenase 339 H (120-246) U/L Total Protein (6.2-8.2) g/dL Albumin (3.80-4.90) g/dL Albumin/Globulin Ratio (1.60-3.17) g/dL Vitamin B12 (200.0-944.0) pg/mL Crossmatch Diabetes panel 04/02/21 Range/Units 06:21 Sodium 137 (135-145) mmol/L Potassium 4.5 (3.5-5.5) mmol/L Chloride 105 (96-109) mmol/L Carbon Dioxide 21.6 (21.6-31.8) mmol/L BUN 23.0 (9.0-27.0) mg/dL Creatinine 1.2 (0.6-1.5) mg/dL Glucose 104 (70-110) mg/dL Calcium 7.9 L (8.7-10.3) mg/dL AST 41 H (14-35) U/L ALT 23 (10-49) U/L Alkaline Phosphatase 65 (41-126) U/L Total Protein 5.4 L (6.2-8.2) g/dL Albumin 2.80 L (3.80-4.90) g/dL Calcium panel 04/02/21 04/03/21 Range/Units 06:21 05:35 Calcium 7.9 L (8.7-10.3) mg/dL Phosphorus 3.1 (2.4-5.1) mg/dL Albumin 2.80 L (3.80-4.90) g/dL Pituitary panel 04/02/21 Range/Units 06:21 Sodium 137 (135-145) mmol/L Potassium 4.5 (3.5-5.5) mmol/L Chloride 105 (96-109) mmol/L Carbon Dioxide 21.6 (21.6-31.8) mmol/L BUN 23.0 (9.0-27.0) mg/dL Creatinine 1.2 (0.6-1.5) mg/dL Glucose 104 (70-110) mg/dL Calcium 7.9 L (8.7-10.3) mg/dL Adrenal panel 04/02/21 Range/Units 06:21 Sodium 137 (135-145) mmol/L Potassium 4.5 (3.5-5.5) mmol/L Chloride 105 (96-109) mmol/L Carbon Dioxide 21.6 (21.6-31.8) mmol/L BUN 23.0 (9.0-27.0) mg/dL Creatinine 1.2 (0.6-1.5) mg/dL Glucose 104 (70-110) mg/dL Calcium 7.9 L (8.7-10.3) mg/dL Total Bilirubin 1.1 (0.2-1.2) mg/dL AST 41 H (14-35) U/L ALT 23 (10-49) U/L Alkaline Phosphatase 65 (41-126) U/L Total Protein 5.4 L (6.2-8.2) g/dL Albumin 2.80 L (3.80-4.90) g/dL - Imaging Comments: See HPI for details Assessment and Plan Assessment: 1. Bilateral carotid stenosis less than 50% bilaterally per carotid duplex 2. Aortic aneurysm 5 cm per chest x-ray 3. History of abdominal aortic aneurysm repair in 2001 4. History of thoracic aneurysm repair January 2020 at [facility] 5. History of coronary artery disease status post valve replacement and pacemaker January 2020 6. Anemia, suspected GI bleed 7. Atrial fibrillation on Eliquis (1) Anemia Current Visit: Yes Status: Acute Code(s): D64.9 - ANEMIA, UNSPECIFIED SNOMED Code(s): 496821248 (2) Fecal occult blood test positive Current Visit: Yes Status: Acute Code(s): R19.5 - OTHER FECAL ABNORMALITIES SNOMED Code(s): 30624214 (3) Atrial fibrillation with RVR Current Visit: No Status: Acute Code(s): I48.91 - UNSPECIFIED ATRIAL FIBRILLATION SNOMED Code(s): 426502165788268 Plan: 1. Continue symptomatic and supportive care 2. Carotid duplex reviewed 3. Continue current medical management 4. No acute indication for any vascular surgical intervention at this time, recommend outpatient follow-up for carotid stenosis surveillance. 5. Recommend patient to follow-up with previous cardiothoracic surgeon for aortic aneurysm. Thank you for this consultation, and allowing us to part in the plan of care of your patient during his hospital stay The impression and plan of care has been dictated as directed. Dr. Sanabria I performed a history and examination of this patient, discussed the same with the dictator. I agree with the dictator's note ,documented as a scribe. Any additional findings or plans will be noted.
[2021-04-03] MEDS ORDERED: PROPOFOL 10 MG/ML 20 ML VIAL IV ONE (12:13)
[2021-04-03] MEDS ORDERED: LACTATED RINGERS 1,000 ML IV ONE (12:42)
--- NOTE | 2021-04-03 13:46 | P.PN ---
Subjective Progress Note Date: 04/03/21 HISTORY OF PRESENT ILLNESS 80-year-old male one of my office patient is known to have history of atherosclerotic heart disease, large thoracic aneurysm postrepair at [facility] over 2 years ago with multiple complication consistent with excessive bleeding, postsurgical bleed, severe arrhythmia post pacemaker, A. fib with RVR, anemia require multiple units of blood transfusion, history of TIA and possible stroke along with hypoxic encephalopathy, debility require extended physical therapy for long time. Patient has been seen last few weeks for recurrent back pain he was seen at the for possible epidural injection and was waiting for CT of the lumbar spine to decide on pain management. Patient apparently developed in the last 10 days to have much worsening dec lining condition along with significant weight loss fatigue tiredness not acting himself developed to have significant memory loss not been able to move himself out of bed and become a lot worse. Ended up seen in the office had some blood work showed his hemoglobin significantly decreased to 6.9 from almost above 11. Patient was sent to the emergency department at [facility] for possible active acute GI bleed his hemoglobin came back in below 7. Hemoccult was positive patient be seen gastroenterology no lower abdominal pain but has been having slight upper abdominal discomfort on and off. Also patient has been on Eliquis 2.5 g twice a day for A. fib patient has been taking it is still on iron. Patient also is known to have history of CLL was seen hematology over a year ago and his W BC still in the low teen did not require much help at that time or any management. When seen patient and his apparently has not been moving out of bed has been more tired fatigue not acting himself and the has noticed significant change in mental status along with memory. Patient does not remember having any black stools or tarry stools no bright red blood per rectum. His appetite has been significantly down from before. Patient had refused to go for colonoscopy previously had coloGuarded done over a year ago came back negative patient is known to have family history of colon cancer but he absolutely refuses to go for colonoscopy earlier. 04/02: Patient has been seen by GI with plan for EGD and colonoscopy tomorrow which patient was agreeable to. Patient is very confused and staff and will ensure that he gets his prep done and completed. Neurology has been added for mental status changes and Cowden loss. Oncology consult regarding history of CLL. The patient remains afebrile, heart rate 69, blood pressure 108/57, pulse ox 99% on room air. WBC 14.2, hemoglobin 7.2 completely from 236. Electrolytes and renal function normal. AST 41. Patient is obtaining 750 ML on incentive spirometry. assistant manager is atrial fibrillation with controlled rate. Disch arge plan is for discharge to [facility] for subacute rehab. 04/03: Patient had a drop in hemoglobin is 6.6 and has been ordered for transfusion of 2 units packed RBCs. Carotid ultrasound revealed 50% stenosis in the bilateral ICA and consult added for vascular surgery. They have advised that concerns regarding the AAA graft will need to be addressed by the tertiary care physician the perform the procedure. Patient is been seen by oncology and CLL seems to be at near baseline. Patient has not done well taking prep and has not been cleared for colonoscopy and EGD which most likely will be postponed until tomorrow. He has been afebrile, heart rate 67, blood pressure 105/59, pulse ox 99% on room air. LDH 339. Uric acid 8.4. Vitamin B12 1609 iron 16, TIBC 228, iron saturation 7.02, ferritin 178.2. REVIEW OF SYSTEMS Constitutional: No fever, no chills, no night sweats. Significant weight loss, weakness, fatigue, lethargy and daytime sleeping. EENT: No headache. No blurred vision or double vision, no loss of vision. No loss of Hearing, no ringing in the ears, no dizziness. No nasal drainage or congestion. No epistaxis. No sore throat. Lungs: No shortness of breath, cough, no sputum production. No wheezing. Cardiovascular: No chest pain, no lower extremity edema. No palpitations. No paroxysmal nocturnal dyspnea. No orthopnea. No lightheadedness or dizziness. No syncopal episodes. Abdominal: Slight abdominal discomfort with lack of appetite mild nausea with no vomiting no diarrhea slight constipation. Genitourinary: No dysuria, increased frequency, urgency. Decrease urine output. Musculoskeletal: No myalgias. No muscle weakness, no gait dysfunction, no frequent falls. No back pain. No neck pain. Integumentary: No wounds, no lesions. No rash or pruritus. No unusual bruising. No change in hair or nails. Neurologic: No dysphagia no facial droop generalized fatigue tiredness and weakness no focal deficit at this point has not been moving much but his balance and gait has been off. Short-term memory deficit, confusion. Psychiatric: No depression. No anxiety. No mood swings. Endocrine: No abnormal blood sugars. No weight change. No excessive sweating or thirst. No cold intolerance. PHYSICAL EXAMINATION Gen: This is a thin 80-year-old male. He is fasting bed and appears comfortable and in no acute distress. Patient's daughter is at bedside. HEENT: Head is atraumatic, normocephalic. Pupils equal, round. Sclerae is anicteric. NECK: Supple. No JVD. No lymphadenopathy. No thyromegaly. LUNGS: Clear to auscultation. No wheezes or rhonchi. No intercostal retractions. HEART: Irregular rhythm and rate is sinus to positive S3 positive JVD ABDOMEN: Soft. Bowel sounds are present. No masses. No tenderness. EXTREMITIES: No pedal edema. No calf tenderness. NEUROLOGICAL: Awake alert oriented to person, positive generalized weakness no focal deficit. ASSESSMENT AND PLAN 1. acute blood loss anemia. Patient will be transfused 2 units packed RBCs, GI consult appreciated. Patient is been scheduled for EGD and colonoscopy which were most likely will be postponed until tomorrow due to poor prepping. 2 acute gastrointestinal bleed. Eliquis is on hold, continue Protonix 40 mg IV twice daily, GI consult for EGD and colonoscopy. 3. Metabolic encephalopathy, no clear etiology with the severe anemia and severe generalized weakness and fatigue possible hypertension and hypoperfusion can explain the change. 4. large thoracic aneurysm: Postrepair at [facility] back 18 month ago patient had multiple complication has been seen still I cardiothoracic surgeon regularly. 5. A. fib with RVR, paroxysmal atrial fibrillation: Pulse rates under control, patient remain on metoprolol and Eliquis will hold Eliquis for now. 6 atherosclerotic heart disease: No chest pain or angina currently. 7 diastolic congestive heart failure: Remain on Lasix, Lopressor and smaller dose of marvel. 8 significant weight loss: The possibility of malignancy still very high at this point patient is known to have CLL with his family history of colon cancer patient might need to go for colonoscopy eventually. 9 acute kidney injury: Specially with the dehydration and hypoperfusion hydrate patient and correct blood loss and driven repeat CMP. 10 CLL: Patient white blood cells mildly elevated is not on any medication or management at this point. 11 BPH: Has been doing well on Flomax 0.4 mg daily. 12 hyperlipidemia: Continue atorvastatin at 40 mg daily. 13 chronic degenerative disc disease: Patient might require epidural injection at some point CT of the L-spine is pending at this point. 14 severe arrhythmia with sick sinus syndrome post pacemaker placement. CODE STATUS: Full code DISCHARGE PLAN [place] Impression and plan of care have been directed as dictated by the signing physician. Nathalia Frausto nurse practitioner acting as scribe for signing physician. Objective - Vital Signs Vital signs: Vital Signs Temp 97.7 F 04/03/21 08:15 Pulse 76 04/03/21 08:15 Resp 18 04/03/21 08:15 BP 90/51 04/03/21 08:15 Pulse Ox 99 04/03/21 08:15 Intake & Output 04/02/21 04/03/21 04/03/21 18:59 06:59 18:59 Intake Total 900 0 Balance 900 0 Weight 73.028 kg Intake: Intake, IV Titration 900 Amount Sodium Chloride 0.9% 1, 900 000 ml @ 75 mls/hr IV . [id number] DERICK Rx#:[id number] Blood Product 0 Rc Pheresis 2 As3 Unit 0 [id number] Other: Voiding Method Toilet Toilet Toilet Urinal Bedside Commode Bedside Commode Urinal Urinal # Voids 1 # Bowel Movements 1 - Labs CBC & Chem 7: 04/03/21 05:35 04/02/21 06:21 Labs: Abnormal Lab Results - Last 24 Hours (Table) 04/01/21 04/02/21 04/02/21 Range/Units 11:40 06:21 06:21 WBC (3.8-10.6) k/uL RBC (4.30-5.90) m/uL Hgb (13.0-17.5) gm/dL Hct (39.0-53.0) % Retic Count (0.5-2.0) % Est GFR (CKD-EPI)NonAf 57.2 L (60.0-200.0) Calcium 7.9 L (8.7-10.3) mg/dL Iron 16 L (65-175) ug/dL % Saturation 7.02 L (15.00-50.00) AST 41 H (14-35) U/L Total Protein 5.4 L (6.2-8.2) g/dL Albumin 2.80 L (3.80-4.90) g/dL Albumin/Globulin Ratio 1.08 L (1.60-3.17) g/dL Vitamin B12 1609.0 H (200.0-944.0) pg/mL Crossmatch See Detail 04/03/21 Range/Units 05:35 WBC 12.8 H (3.8-10.6) k/uL RBC 2.51 L (4.30-5.90) m/uL Hgb 6.6 L* (13.0-17.5) gm/dL Hct 20.7 L (39.0-53.0) % Retic Count 3.2 H (0.5-2.0) % Est GFR (CKD-EPI)NonAf (60.0-200.0) Calcium (8.7-10.3) mg/dL Iron (65-175) ug/dL % Saturation (15.00-50.00) AST (14-35) U/L Total Protein (6.2-8.2) g/dL Albumin (3.80-4.90) g/dL Albumin/Globulin Ratio (1.60-3.17) g/dL Vitamin B12 (200.0-944.0) pg/mL Crossmatch
--- NOTE | 2021-04-03 14:14 | P.PCN ---
Date of Procedure: 04/03/21 Description of Procedure: Brief history: 80-year-old male with a history of atherosclerotic heart disease, large thoracic aneurysm postrepair with postsurgical bleed, severe arrhythmia post pacemaker, Atrial fibrillation on Eliquis, and CLL who was sent into the emergency department for abnormal outpatient lab work. Patient reportedly had a low hemoglobin and was sent in for further evaluation. Patient's daughter is at the bedside and states that the patient has been declining over the last 2 weeks, not eating well and has lost approximately 12 pounds. The patient has had no previous history of peptic ulcer disease, GI bleed, EGD or colonoscopy. Patient had acholic are one year ago which he states was negative. According to chart documentation patient has a history of anemia and has required blood transfusions although patient and daughter do not recall this. On admission he was noted to have a hemoglobin of 7.6. Today's repeat labs show WBC 14, hemoglobin 7.2, hematocrit 23, platelet count 236,000, INR 1.1, total bilirubin 1.3, alkaline phosphatase 80, AST 42, ALT 24. Patient states he is unsure if he has had any blood in his stools but states that they may be dark. States he has had abdominal pain that is diffuse for the last 3 weeks duration. Decreased a ppetite. Patient also is known to have history of CLL was seen hematology over a year ago. Procedure performed: Esophagogastroduodenoscopy Colonoscopy with polypectomy, Endo Clip placement 2 and tattoo Estimated blood loss: Minimal. Preoperative diagnosis: Anemia, GI bleed, no prior colonoscopy Anesthesia: MAC Procedure: After informed consent was obtained from the patient was brought into the endoscopy unit and IV sedation was administered by anesthesia under continuous monitoring. Initially upper endoscopy was done. The Olympus GF 190 video endoscope was inserted into the mouth and esophagus intubated without any difficulty and was gradually advanced into the stomach and duodenum and carefully examined. The bulb and second part of the duodenum appeared normal. The scope was then withdrawn into the stomach adequately insufflated with air and upon careful examination the antrum and body, cardia and fundus appeared normal. The scope was then withdrawn into the esophagus. The GE junction was located at 40 cm to the incisors. It appeared regular with no erythema erosions or ulcerations, but with some mild erythema in the distal 3 cm of the esophagus consistent with LA grade B distal esophagitis. Rest of the esophagus appeared normal. Patient tolerated the procedure well. At this time the patient continued to remain sedation. Initial digital rectal examination was normal. Olympus CF 190 video colonoscope was then inserted into the rectum and gradually advanced to the cecum without any difficulty. Careful examination was performed as the scope was gradually being withdrawn. The prep was excellent. The cecum, ascending colon, transverse colon, descending colon, sigmoid colon and rectum appeared normal. Multiple small and large mouth diverticula throughout the colon. 2 sessile polyps measuring 4 and 6 mm in size removed from the cecum with cold snare polypectomy. 5 mm hepatic flexure polyp removed with cold snare polypectomy. Large pedunculated 3 cm hepatic flexure polyp removed with hot snare polypectomy. Endo Clip placement 2 at the site of polypectomy with injection of 2 mL of dye to tattoo the area. Multiple other subcentimeter polyps were noted throughout the colon and not removed. Retroflexion was performed in the rectum and no lesions were noted. Patient tolerated the procedure well. Impression: 1. LA grade B distal esophagitis. No active bleeding or old blood noted on EGD. 2. Large pedunculated tubulovillous-appearing hepatic flexure polyp removed with hot snare polypectomy with Endo Clip placement 2 and tattoo at the site of polypectomy. Cold snare polypectomy of 2 polyps from the cecum and one from the hepatic flexure. Moderate pandiverticulosis. Multiple subcentimeter polyps throughout the colon not removed. Recommendations: Findings of this examination were discussed with the patient as well as his . Okay for full liquid diet. Continue to monitor hemoglobin and hematocrit and transfuse as needed. Continue Protonix therapy. Await pathology from polypectomy, patient will either need repeat colonoscopy in 3-6 months for removal of polyps which were not removed if pathology is benign versus referral to surgical service for definitive treatment if malignancy is found.
--- NOTE | 2021-04-03 16:13 | P.PN ---
Subjective Progress Note Date: 04/03/21 Hemoglobin 6.6 today, prbc ordered. Spoke with primary team and plan for GI evaluation in am. Objective - Vital Signs Vital signs: Vital Signs Temp 98.0 F 04/03/21 15:41 Pulse 59 L 04/03/21 15:41 Resp 18 04/03/21 15:41 BP 92/51 04/03/21 15:41 Pulse Ox 99 04/03/21 15:41 Intake & Output 04/02/21 04/03/21 04/03/21 18:59 06:59 18:59 Intake Total 900 1285 Balance 900 1285 Weight 73.028 kg Intake: IV 700 Intake, IV Titration 900 Amount Sodium Chloride 0.9% 1, 900 000 ml @ 75 mls/hr IV . [id number] [facility] Rx#:[id number] Blood Product 585 Rc As-1 Unit 310 [id number] Rc Pheresis 2 As3 Unit 275 [id number] Other: Voiding Method Toilet Toilet Toilet Urinal Bedside Commode Bedside Commode Urinal Urinal # Voids 1 # Bowel Movements 1 - Exam - Constitutional General appearance: no acute distress - EENT Eyes: EOMI ENT: hard of hearing - Neck Neck: normal ROM - Respiratory Respiratory: bilateral: diminished - Cardiovascular Rhythm: irregularly irregular - Gastrointestinal General gastrointestinal: soft, tenderness - Integumentary Integumentary: pale - Neurologic james - Musculoskeletal Musculoskeletal: generalized weakness - Psychiatric poor historian, not appropriately answering questions - Labs CBC & Chem 7: 04/03/21 05:35 04/02/21 06:21 Labs: Abnormal Lab Results - Last 24 Hours (Table) 04/01/21 04/02/21 04/03/21 Range/Units 11:40 06:21 05:35 WBC 12.8 H (3.8-10.6) k/uL RBC 2.51 L (4.30-5.90) m/uL Hgb 6.6 L* (13.0-17.5) gm/dL Hct 20.7 L (39.0-53.0) % Retic Count 3.2 H (0.5-2.0) % Iron 16 L (65-175) ug/dL % Saturation 7.02 L (15.00-50.00) Lactate Dehydrogenase (120-246) U/L Vitamin B12 1609.0 H (200.0-944.0) pg/mL Crossmatch See Detail 04/03/21 Range/Units 05:35 WBC (3.8-10.6) k/uL RBC (4.30-5.90) m/uL Hgb (13.0-17.5) gm/dL Hct (39.0-53.0) % Retic Count (0.5-2.0) % Iron (65-175) ug/dL % Saturation (15.00-50.00) Lactate Dehydrogenase 339 H (120-246) U/L Vitamin B12 (200.0-944.0) pg/mL Crossmatch Assessment and Plan (1) Leukocytosis Current Visit: No Status: Acute Code(s): D72.829 - ELEVATED WHITE BLOOD CELL COUNT, UNSPECIFIED SNOMED Code(s): 531225961 Plan: Assessment and Recommendations: Symptomatic Normocytic Anemia: - Patient has refused GI work-up in past although open to undergo today. He is currently participating in prep - Iron studies low and this is suspicious for GI Bleeding Bood loss anemia. - Transfuse hemoglobin less than 7 History of CLL: - has not followed with content coordinator in some time, appears to be close to baseline. Await GI evaluation COntinue supportive transfusions
[2021-04-03 18:21] LABS: Glucose,Whole Blood 141 mg/dL (75-99)
[2021-04-03] MEDS: METOPROLOL TARTRATE 25 MG TAB PO SCH (19:42)
[2021-04-03] MEDS: ATORVASTATIN 40 MG TAB PO SCH (19:45)
[2021-04-04 03:19] LABS: Folate, Serum 17.9 ng/mL
[2021-04-04] MEDS: SODIUM CHLORIDE 0.9% 1,000 ML IV SCH ×3 (04:40→20:17)
[2021-04-04 06:38] LABS: Anisocytosis Slight; HCT 26.5 % (39.0-53.0); Hypochromasia Moderate; MCH 27.3 pg (25.0-35.0); MCHC 32.3 g/dL (31.0-37.0); MCV 84.3 fL (80.0-100.0); Mean Platelet Volume 7.5; Platelet Count 224 k/uL (150-450); Poikilocytosis Slight; RBC 3.14 m/uL (4.30-5.90); RDW 16.4 % (11.5-15.5); WBC 17.9 k/uL (3.8-10.6)
[2021-04-04 06:46] LABS: HGB 8.6 gm/dL (13.0-17.5)
[2021-04-04 07:04] LABS: ALT 17 U/L (4-49); AST 35 U/L (17-59); Albumin 2.4 g/dL (3.5-5.0); Albumin/Globulin Ratio 0.8; Alkaline Phosphatase 75 U/L (38-126); Anion Gap 5 mmol/L; Blood Urea Nitrogen 16 mg/dL (9-20); Calcium 8.6 mg/dL (8.4-10.2); Carbon Dioxide 23 mmol/L (22-30); Chloride 111 mmol/L (98-107); Globulin 2.9 g/dL; Glucose 126 mg/dL (74-99); Potassium 3.8 mmol/L (3.5-5.1); Sodium 139 mmol/L (137-145); Total Bilirubin 1.4 mg/dL (0.2-1.3); Total Protein 5.3 g/dL (6.3-8.2)
[2021-04-04 07:05] LABS: African American GFR (CKD) 80 (>60 ml/min/1.73 sqM); Non-African American GFR(CKD) 69 (>60 ml/min/1.73 sqM)
[2021-04-04] MEDS: PANTOPRAZOLE 40 MG/10 ML VIAL IVP SCH ×2 (08:53→20:13)
[2021-04-04] MEDS: TAMSULOSIN 0.4 MG CAP.ER.24H PO SCH (08:53)
[2021-04-04] MEDS: MAGNESIUM OXIDE 400 MG TAB PO SCH ×2 (08:54→20:13)
[2021-04-04] MEDS: FUROSEMIDE 40 MG TAB PO SCH (08:54)
--- NOTE | 2021-04-04 10:16 | EEG ---
ELECTROENCEPHALOGRAM REPORT DATE OF SERVICE: 04/02/2021 PREAMBLE: This is a 80-year-old male with altered mental status. This study is performed to evaluate for encephalopathy and to rule out any seizure activity. EEG FINDINGS: This is a 21-channel routine EEG recording in a patient utilizing 10/20 international system with referential and bipolar montages. Background consists of well-developed, but not very well regulated, predominantly 6-7 Hertz theta activity seen in bihemispheric region. Some delta slowing was occasionally seen. Background does not seem to be reactive to eye opening or closing. Photic driving response was not seen. Different stages of sleep were not seen. No focal or generalized epileptiform activity was seen. EKG channel showed no arrhythmia. IMPRESSION: This is an abnormal EEG due to background slowing of mild to moderate degree. This is suggestive of generalized cerebral dysfunction as can be seen with toxic metabolic encephalopathy or due to diffuse structural brain abnormality. No epileptiform activity was seen. MMODL / IJN: [id number] /
--- NOTE | 2021-04-04 11:24 | P.PN ---
Subjective Progress Note Date: 04/04/21 Principal diagnosis: Anemia, melena A shunt is seen and examined sitting up at the bedside chair. He is status post EGD and colonoscopy yesterday with findings of esophagitis, and a large hepatic flexure polyp with polypectomy, moderate kerr diverticulosis. No acute changes through the night. Hemoglobin is stable at 8.6 after 2 units of PRBC transfusion. He denies any abdominal pain, rectal bleeding, nausea or vomiting. Objective - Vital Signs Vital signs: Vital Signs Temp 97.8 F 04/04/21 04:45 Pulse 71 04/04/21 04:45 Resp 16 04/03/21 19:52 BP 124/70 04/04/21 04:45 Pulse Ox 95 04/04/21 04:45 Intake & Output 04/03/21 04/04/21 04/04/21 18:59 06:59 18:59 Intake Total 1870 Balance 1870 Intake: IV 700 Blood Product 1170 Rc As-1 Unit 310 [id number] Rc Pheresis 2 As3 Unit 275 [id number] Other: Voiding Method Toilet Toilet Bedside Commode Bedside Commode Urinal Urinal # Voids 2 2 1 - Exam General appearance: The patient is alert, oriented, appears in no acute distress. HET: Head is normocephalic and atraumatic. Conjunctiva pink. Sclera anicteric. Neck: Supple without lymphadenopathy. Abdomen: Soft, nontender, nondistended with bowel sounds. No guarding or rigidity. Extremities: Normal skin color and turgor. No pedal edema Skin: No rashes, no jaundice Neurological: No focal deficits. Alert and oriented 3. - Labs CBC & Chem 7: 04/04/21 06:05 04/04/21 06:05 Labs: Abnormal Lab Results - Last 24 Hours (Table) 04/01/21 04/03/21 04/03/21 Range/Units 11:40 05:35 18:18 WBC (3.8-10.6) k/uL RBC (4.30-5.90) m/uL Hgb (13.0-17.5) gm/dL Hct (39.0-53.0) % RDW (11.5-15.5) % Haptoglobin 18.3 L (31.2-198.0) mg/dL Chloride (98-107) mmol/L Glucose (74-99) mg/dL POC Glucose (mg/dL) 141 H (75-99) mg/dL Total Bilirubin (0.2-1.3) mg/dL Total Protein (6.3-8.2) g/dL Albumin (3.5-5.0) g/dL Crossmatch See Detail 04/04/21 04/04/21 Range/Units 06:05 06:05 WBC 17.9 H (3.8-10.6) k/uL RBC 3.14 L (4.30-5.90) m/uL Hgb 8.6 L D (13.0-17.5) gm/dL Hct 26.5 L (39.0-53.0) % RDW 16.4 H (11.5-15.5) % Haptoglobin (31.2-198.0) mg/dL Chloride 111 H (98-107) mmol/L Glucose 126 H (74-99) mg/dL POC Glucose (mg/dL) (75-99) mg/dL Total Bilirubin 1.4 H (0.2-1.3) mg/dL Total Protein 5.3 L (6.3-8.2) g/dL Albumin 2.4 L (3.5-5.0) g/dL Crossmatch Assessment and Plan (1) Anemia Narrative/Plan: 80-year-old male who presented to the emergency department per abnormal outpatient labs. Patient had a low hemoglobin and was told to come to the emergency department for further evaluation. Patient has multiple comorbidities and has significant coronary artery disease, atrial fibrillation taking Eliquis is currently on hold. Patient denies any previous history of GI bleed, denies any history of peptic ulcer disease. He states he does not take any NSAIDs, only Tylenol as needed for pain. He has not had a EGD or colonoscopy in the past. He did have a cold guard last year which was negative. He does have a family history of colon cancer, his brother. Patient states he's been having abdominal pain is diffuse, for the last 3 weeks duration. Denies any nausea or vomiting. He has had decreased appetite and energy. Daughter states that he has lost 12 pounds in the last week. He is unsure of blood in stool but states it may be dark. He does have a history of CLL which he was following with hematology a little over year ago. Patient did have a significant drop in his hemoglobin from a recent 11 to 7.6. Patient also had a positive occult stool. Possible etiologies could be gastrointestinal blood loss, anemia of chronic disease, or CLL. Discussed with patient and his daughter and are willing to proceed with EGD and colonoscopy. Continue to hold Eliquis, protoniX 40 mg twice a day. Patient underwent EGD and colonoscopy with findings of esophagitis and a large hepatic flexure polyp with polypectomy and Endo Clip placement/tattooing of site of polypectomy, 2 polyps removed from the cecum and one from the hepatic flexure, moderate pandiverticulosis. Current Visit: Yes Status: Acute Code(s): D64.9 - ANEMIA, UNSPECIFIED SNOMED Code(s): 497706309 (2) Fecal occult blood test positive Current Visit: Yes Status: Acute Code(s): R19.5 - OTHER FECAL ABNORMALITIES SNOMED Code(s): 65464759 (3) Atrial fibrillation with RVR Current Visit: No Status: Acute Code(s): I48.91 - UNSPECIFIED ATRIAL FIBRILLATION SNOMED Code(s): 274109720950849 Plan: 1. Advance diet as tolerated 2. Patient is status post EGD and colonoscopy 3. Patient instructed to follow up and call gastroenterology office next week for biopsy results. Patient will either need repeat colonoscopy in 3-6 months based on pathology results or referral to general surgery. This was discussed both with the patient and his who was at the bedside. Thank you for allowing us to participate in the care of the patient, the GI service will sign off, gastroenterology will not be available at the hospital this weekend and if further evaluation by gastroenterology is required the patient will need transfer as per the primary team's discretion. Dr. Wong I agree with the dictator's note, documented as a scribe by Ibis Sinha.
[2021-04-04] MEDS: SODIUM FERRIC GLUCONAT-SUCROSE 125 MG in SODIUM CHLORIDE 0.9% 100 ML IVPB SCH (12:46)
[2021-04-04] MEDS: polyethylene glycoL 3350 17 GM POWD.PACK PO SCH (12:49)
--- NOTE | 2021-04-04 13:13 | P.PN ---
Subjective Progress Note Date: 04/04/21 HISTORY OF PRESENT ILLNESS 80-year-old male one of my office patient is known to have history of atherosclerotic heart disease, large thoracic aneurysm postrepair at [facility] over 2 years ago with multiple complication consistent with excessive bleeding, postsurgical bleed, severe arrhythmia post pacemaker, A. fib with RVR, anemia require multiple units of blood transfusion, history of TIA and possible stroke along with hypoxic encephalopathy, debility require extended physical therapy for long time. Patient has been seen last few weeks for recurrent back pain he was seen at the for possible epidural injection and was waiting for CT of the lumbar spine to decide on pain management. Patient apparently developed in the last 10 days to have much worsening dec lining condition along with significant weight loss fatigue tiredness not acting himself developed to have significant memory loss not been able to move himself out of bed and become a lot worse. Ended up seen in the office had some blood work showed his hemoglobin significantly decreased to 6.9 from almost above 11. Patient was sent to the emergency department at [facility] for possible active acute GI bleed his hemoglobin came back in below 7. Hemoccult was positive patient be seen gastroenterology no lower abdominal pain but has been having slight upper abdominal discomfort on and off. Also patient has been on Eliquis 2.5 g twice a day for A. fib patient has been taking it is still on iron. Patient also is known to have history of CLL was seen hematology over a year ago and his W BC still in the low teen did not require much help at that time or any management. When seen patient and his apparently has not been moving out of bed has been more tired fatigue not acting himself and the has noticed significant change in mental status along with memory. Patient does not remember having any black stools or tarry stools no bright red blood per rectum. His appetite has been significantly down from before. Patient had refused to go for colonoscopy previously had coloGuarded done over a year ago came back negative patient is known to have family history of colon cancer but he absolutely refuses to go for colonoscopy earlier. 04/02: Patient has been seen by GI with plan for EGD and colonoscopy tomorrow which patient was agreeable to. Patient is very confused and staff and will ensure that he gets his prep done and completed. Neurology has been added for mental status changes and [place] loss. Oncology consult regarding history of CLL. The patient remains afebrile, heart rate 69, blood pressure 108/57, pulse ox 99% on room air. WBC 14.2, hemoglobin 7.2 completely from 236. Electrolytes and renal function normal. AST 41. Patient is obtaining 750 ML on incentive spirometry. youth nutritional monitor is atrial fibrillation with controlled rate. Disch arge plan is for discharge to [facility] for subacute rehab. 04/03: Patient had a drop in hemoglobin is 6.6 and has been ordered for transfusion of 2 units packed RBCs. Carotid ultrasound revealed 50% stenosis in the bilateral ICA and consult added for vascular surgery. They have advised that concerns regarding the AAA graft will need to be addressed by the tertiary care physician the perform the procedure. Patient is been seen by oncology and CLL seems to be at near baseline. Patient has not done well taking prep and has not been cleared for colonoscopy and EGD which most likely will be postponed until tomorrow. He has been afebrile, heart rate 67, blood pressure 105/59, pulse ox 99% on room air. LDH 339. Uric acid 8.4. Vitamin B12 1609 iron 16, TIBC 228, iron saturation 7.02, ferritin 178.2. 04/04: Patient is status post EGD and colonoscopy yesterday with findings of esophagitis, and a large rectal polyp that was biopsied. No acute changes through the night. He is currently tolerating a full liquid diet. Hemoglobin is stable at 8.6 after 2 units of PRBC transfusion. He denies any abdominal pain, rectal bleeding, nausea or vomiting. Patient remains pleasantly confused. Patient has been seen by neurology. EEG reveals [id number] toxic metabolic encephalopathy due to diffuse structural brain abnormality. We will start the patient on Aricept. Patient has been seen and followed by neurology. Other lab work reveals WBC is 17.9, platelet count of 224. Chloride is 111 otherwise electrolytes and renal function are normal. Blood sugar 126. Total bilirubin 1.4 and liver function tests normal. IgG 1150. Methylmalonic acid level is pending. Patient has worked with PT and OT with recommendations for subacute rehab. We'll plan for discharge to [facility] on Wednesday. REVIEW OF SYSTEMS Constitutional: No fever, no chills, no night sweats. Significant weight loss, weakness, fatigue, lethargy and daytime sleeping. EENT: No headache. No blurred vision or double vision, no loss of vision. No loss of Hearing, no ringing in the ears, no dizziness. No nasal drainage or congestion. No epistaxis. No sore throat. Lungs: No shortness of breath, cough, no sputum production. No wheezing. Cardiovascular: No chest pain, no lower extremity edema. No palpitations. No paroxysmal nocturnal dyspnea. No orthopnea. No lightheadedness or dizziness. No syncopal episodes. Abdominal: Slight abdominal discomfort with lack of appetite mild nausea with no vomiting no diarrhea slight constipation. Genitourinary: No dysuria, increased frequency, urgency. Decrease urine output. Musculoskeletal: No myalgias. No muscle weakness, no gait dysfunction, no frequent falls. No back pain. No neck pain. Integumentary: No wounds, no lesions. No rash or pruritus. No unusual bruising. No change in hair or nails. Neurologic: No dysphagia no facial droop generalized fatigue tiredness and weakness no focal deficit at this point has not been moving much but his balance and gait has been off. Short-term memory deficit, confusion. Psychiatric: No depression. No anxiety. No mood swings. Endocrine: No abnormal blood sugars. No weight change. No excessive sweating or thirst. No cold intolerance. PHYSICAL EXAMINATION Gen: This is a thin 80-year-old male. He is fasting bed and appears comfortable and in no acute distress. HEENT: Head is atraumatic, normocephalic. Pupils equal, round. Sclerae is anicteric. NECK: Supple. No JVD. No lymphadenopathy. No thyromegaly. LUNGS: Clear to auscultation. No wheezes or rhonchi. No intercostal re tractions. HEART: Irregular rhythm and rate is sinus to positive S3 positive JVD ABDOMEN: Soft. Bowel sounds are present. No masses. No tenderness. EXTREMITIES: No pedal edema. No calf tenderness. NEUROLOGICAL: Awake alert oriented to person, positive generalized weakness no focal deficit. ASSESSMENT AND PLAN 1. acute blood loss anemia. Patient will be transfused 2 units packed RBCs, GI consult appreciated. Patient is status post EGD and colonoscopy with suspicious large rectal polyp that was biopsied. Continue to monitor hemoglobin. Ferrlecit 3 doses has been ordered by oncology. 2. acute gastrointestinal bleed. Eliquis is on hold, continue Protonix 40 mg IV twice daily, GI consult for EGD and colonoscopy. 3. Metabolic encephalopathy, no clear etiology with the severe anemia and severe generalized weakness and fatigue possible hypertension and hypoperfusion can explain the change. 4. large thoracic aneurysm: Postrepair at [facility] back 18 month ago patient had multiple complication has been seen still I cardiothoracic surgeon regularly. 5. A. fib with RVR, paroxysmal atrial fibrillation: Pulse rates under control, patient remain on metoprolol and Eliquis will hold Eliquis for now. 6. atherosclerotic heart disease: No chest pain or angina currently. 7. Chronic diastolic heart failure. Continue Lasix, Lopressor and smaller dose of marvel. 8. significant weight loss, possibility of malignancy still very high with history of CLL with his family history of colon cancer. 9. acute kidney injury: Specially with the dehydration and hypoperfusion hydrate patient and correct blood loss and driven repeat CMP. 10 CLL: Patient white blood cells mildly elevated is not on any medication or management at this point. 11 BPH: Has been doing well on Flomax 0.4 mg daily. 12 hyperlipidemia: Continue atorvastatin at 40 mg daily. 13 chronic degenerative disc disease: Patient might require epidural injection at some point CT of the L-spine is pending at this point. 14 severe arrhythmia with sick sinus syndrome post pacemaker placement. 15. Carotid artery stenosis 50% bilaterally. Vascular consult, patient will be monitored outpatient. CODE STATUS: Full code DISCHARGE PLAN on Wednesday Impression and plan of care have been directed as dictated by the signing physician. Nathalia Frausto nurse practitioner acting as scribe for signing physician. Objective - Vital Signs Vital signs: Vital Signs Temp 97.8 F 04/04/21 04:45 Pulse 71 04/04/21 04:45 Resp 16 04/03/21 19:52 BP 124/70 04/04/21 04:45 Pulse Ox 95 04/04/21 04:45 Intake & Output 04/03/21 04/04/21 04/04/21 18:59 06:59 18:59 Intake Total 1870 Balance 1870 Intake: IV 700 Blood Product 1170 Rc As-1 Unit 310 [id number] Rc Pheresis 2 As3 Unit 275 [id number] Other: Voiding Method Toilet Toilet Bedside Commode Bedside Commode Urinal Urinal # Voids 2 2 - Labs CBC & Chem 7: 04/04/21 06:05 04/04/21 06:05 Labs: Abnormal Lab Results - Last 24 Hours (Table) 04/01/21 04/03/21 04/03/21 Range/Units 11:40 05:35 05:35 WBC (3.8-10.6) k/uL RBC (4.30-5.90) m/uL Hgb (13.0-17.5) gm/dL Hct (39.0-53.0) % RDW (11.5-15.5) % Haptoglobin 18.3 L (31.2-198.0) mg/dL Chloride (98-107) mmol/L Glucose (74-99) mg/dL POC Glucose (mg/dL) (75-99) mg/dL Total Bilirubin (0.2-1.3) mg/dL Lactate Dehydrogenase 339 H (120-246) U/L Total Protein (6.3-8.2) g/dL Albumin (3.5-5.0) g/dL Crossmatch See Detail 04/03/21 04/04/21 04/04/21 Range/Units 18:18 06:05 06:05 WBC 17.9 H (3.8-10.6) k/uL RBC 3.14 L (4.30-5.90) m/uL Hgb 8.6 L D (13.0-17.5) gm/dL Hct 26.5 L (39.0-53.0) % RDW 16.4 H (11.5-15.5) % Haptoglobin (31.2-198.0) mg/dL Chloride 111 H (98-107) mmol/L Glucose 126 H (74-99) mg/dL POC Glucose (mg/dL) 141 H (75-99) mg/dL Total Bilirubin 1.4 H (0.2-1.3) mg/dL Lactate Dehydrogenase (120-246) U/L Total Protein 5.3 L (6.3-8.2) g/dL Albumin 2.4 L (3.5-5.0) g/dL Crossmatch
[2021-04-04] MEDS: DONEPEZIL 5 MG TAB PO SCH (20:13)
[2021-04-04] MEDS: ATORVASTATIN 40 MG TAB PO SCH (20:13)
[2021-04-04] MEDS: METOPROLOL TARTRATE 25 MG TAB PO SCH (20:13)
--- NOTE | 2021-04-04 20:23 | P.PN ---
Subjective Progress Note Date: 04/04/21 Principal diagnosis: Iron Deficiency Anemia Blood loss anemia, confirmed with scope for large bleeding polyp. Discussed with GI. IV iron ordered Objective - Vital Signs Vital signs: Vital Signs Temp 97.8 F 04/04/21 04:45 Pulse 71 04/04/21 04:45 Resp 16 04/03/21 19:52 BP 124/70 04/04/21 04:45 Pulse Ox 95 04/04/21 04:45 Intake & Output 04/03/21 04/04/21 04/04/21 18:59 06:59 18:59 Intake Total 1870 Balance 1870 Intake: IV 700 Blood Product 1170 Rc As-1 Unit 310 [id number] Rc Pheresis 2 As3 Unit 275 [id number] Other: Voiding Method Toilet Toilet Toilet Bedside Commode Bedside Commode Bedside Commode Urinal Urinal Urinal # Voids 2 2 1 - Exam - Constitutional General appearance: no acute distress - EENT Eyes: EOMI ENT: hard of hearing - Neck Neck: normal ROM - Respiratory Respiratory: bilateral: diminished - Cardiovascular Rhythm: irregularly irregular - Gastrointestinal General gastrointestinal: soft, tenderness - Integumentary Integumentary: pale - Neurologic james - Musculoskeletal Musculoskeletal: generalized weakness - Psychiatric poor historian, not appropriately answering questions - Labs CBC & Chem 7: 04/04/21 06:05 04/04/21 06:05 Labs: Abnormal Lab Results - Last 24 Hours (Table) 04/01/21 04/03/21 04/03/21 Range/Units 11:40 05:35 18:18 WBC (3.8-10.6) k/uL RBC (4.30-5.90) m/uL Hgb (13.0-17.5) gm/dL Hct (39.0-53.0) % RDW (11.5-15.5) % Haptoglobin 18.3 L (31.2-198.0) mg/dL Chloride (98-107) mmol/L Glucose (74-99) mg/dL POC Glucose (mg/dL) 141 H (75-99) mg/dL Total Bilirubin (0.2-1.3) mg/dL Total Protein (6.3-8.2) g/dL Albumin (3.5-5.0) g/dL Crossmatch See Detail 04/04/21 04/04/21 Range/Units 06:05 06:05 WBC 17.9 H (3.8-10.6) k/uL RBC 3.14 L (4.30-5.90) m/uL Hgb 8.6 L D (13.0-17.5) gm/dL Hct 26.5 L (39.0-53.0) % RDW 16.4 H (11.5-15.5) % Haptoglobin (31.2-198.0) mg/dL Chloride 111 H (98-107) mmol/L Glucose 126 H (74-99) mg/dL POC Glucose (mg/dL) (75-99) mg/dL Total Bilirubin 1.4 H (0.2-1.3) mg/dL Total Protein 5.3 L (6.3-8.2) g/dL Albumin 2.4 L (3.5-5.0) g/dL Crossmatch Assessment and Plan (1) Leukocytosis Current Visit: No Status: Acute Code(s): D72.829 - ELEVATED WHITE BLOOD CELL COUNT, UNSPECIFIED SNOMED Code(s): 574116249 Plan: Assessment and Recommendations: Symptomatic Normocytic Anemia: - Status post GI work-up = Parental Iron ordered - GI blood loss anemia - Transfuse hemoglobin less than 7 History of CLL: - has not followed with blanket winder helper in some time, appears to be close to baseline. Discussed with GI and primary teams
[2021-04-05] MEDS: SODIUM CHLORIDE 0.9% 1,000 ML IV SCH ×2 (04:32→20:38)
[2021-04-05] MEDS: TAMSULOSIN 0.4 MG CAP.ER.24H PO SCH (08:16)
[2021-04-05] MEDS: PANTOPRAZOLE 40 MG/10 ML VIAL IVP SCH ×2 (08:16→20:38)
[2021-04-05] MEDS: MAGNESIUM OXIDE 400 MG TAB PO SCH ×2 (08:16→20:38)
[2021-04-05] MEDS: FUROSEMIDE 40 MG TAB PO SCH (08:16)
--- NOTE | 2021-04-05 08:57 | P.PN ---
Subjective Progress Note Date: 04/05/21 HISTORY OF PRESENT ILLNESS 80-year-old male one of my office patient is known to have history of atherosclerotic heart disease, large thoracic aneurysm postrepair at [facility] over 2 years ago with multiple complication consistent with excessive bleeding, postsurgical bleed, severe arrhythmia post pacemaker, A. fib with RVR, anemia require multiple units of blood transfusion, history of TIA and possible stroke along with hypoxic encephalopathy, debility require extended physical therapy for long time. Patient has been seen last few weeks for recurrent back pain he was seen at the for possible epidural injection and was waiting for CT of the lumbar spine to decide on pain management. Patient apparently developed in the last 10 days to have much worsening dec lining condition along with significant weight loss fatigue tiredness not acting himself developed to have significant memory loss not been able to move himself out of bed and become a lot worse. Ended up seen in the office had some blood work showed his hemoglobin significantly decreased to 6.9 from almost above 11. Patient was sent to the emergency department at [facility] for possible active acute GI bleed his hemoglobin came back in below 7. Hemoccult was positive patient be seen gastroenterology no lower abdominal pain but has been having slight upper abdominal discomfort on and off. Also patient has been on Eliquis 2.5 g twice a day for A. fib patient has been taking it is still on iron. Patient also is known to have history of CLL was seen hematology over a year ago and his W BC still in the low teen did not require much help at that time or any management. When seen patient and his apparently has not been moving out of bed has been more tired fatigue not acting himself and the has noticed significant change in mental status along with memory. Patient does not remember having any black stools or tarry stools no bright red blood per rectum. His appetite has been significantly down from before. Patient had refused to go for colonoscopy previously had coloGuarded done over a year ago came back negative patient is known to have family history of colon cancer but he absolutely refuses to go for colonoscopy earlier. 04/02: Patient has been seen by GI with plan for EGD and colonoscopy tomorrow which patient was agreeable to. Patient is very confused and staff and will ensure that he gets his prep done and completed. Neurology has been added for mental status changes and [place] loss. Oncology consult regarding history of CLL. The patient remains afebrile, heart rate 69, blood pressure 108/57, pulse ox 99% on room air. WBC 14.2, hemoglobin 7.2 completely from 236. Electrolytes and renal function normal. AST 41. Patient is obtaining 750 ML on incentive spirometry. director instrumentation is atrial fibrillation with controlled rate. Disch arge plan is for discharge to [facility] for subacute rehab. 04/03: Patient had a drop in hemoglobin is 6.6 and has been ordered for transfusion of 2 units packed RBCs. Carotid ultrasound revealed 50% stenosis in the bilateral ICA and consult added for vascular surgery. They have advised that concerns regarding the AAA graft will need to be addressed by the tertiary care physician the perform the procedure. Patient is been seen by oncology and CLL seems to be at near baseline. Patient has not done well taking prep and has not been cleared for colonoscopy and EGD which most likely will be postponed until tomorrow. He has been afebrile, heart rate 67, blood pressure 105/59, pulse ox 99% on room air. LDH 339. Uric acid 8.4. Vitamin B12 1609 iron 16, TIBC 228, iron saturation 7.02, ferritin 178.2. 04/04: Patient is status post EGD and colonoscopy yesterday with findings of esophagitis, and a large rectal polyp that was biopsied. No acute changes through the night. He is currently tolerating a full liquid diet. Hemoglobin is stable at 8.6 after 2 units of PRBC transfusion. He denies any abdominal pain, rectal bleeding, nausea or vomiting. Patient remains pleasantly confused. Patient has been seen by neurology. EEG reveals [id number] toxic metabolic encephalopathy due to diffuse structural brain abnormality. We will start the patient on Aricept. Patient has been seen and followed by neurology. Other lab work reveals WBC is 17.9, platelet count of 224. Chloride is 111 otherwise electrolytes and renal function are normal. Blood sugar 126. Total bilirubin 1.4 and liver function tests normal. IgG 1150. Methylmalonic acid level is pending. Patient has worked with PT and OT with recommendations for subacute rehab. We'll plan for discharge to [facility] on Wednesday. 04/05: Repeat hemoglobin today is at 8.6 after 2 units of packed RBCs. WBC 17.9, platelet count 224. Sodium 139, potassium 3.8, chloride 111, CO2 23, BUN 16 and creatinine 1.03. Total bilirubin 1.4 liver function tests normal. He has been afebrile, heart rate 51, blood pressure 98/58, pulse ox 98% on room air. The patient is continued on Ferrlecit which is ordered for 3 doses which will be completed tomorrow. Patient also was started on Aricept by us for dementia. Patient remains pleasantly confused. He denies any nausea and no abdominal pain. He does have some lightheadedness and dizziness. B12 level and TSH to be checked. We will plan to continue to monitor hemoglobin and transfuse as necessary. Discharge plan remains for on Wednesday. REVIEW OF SYSTEMS Constitutional: No fever, no chills, no night sweats. Significant weight loss, weakness, fatigue, lethargy and daytime sleeping. EENT: No headache. No blurred vision or double vision, no loss of vision. No loss of Hearing, no ringing in the ears, no dizziness. No nasal drainage or congestion. No epistaxis. No sore throat. Lungs: No shortness of breath, cough, no sputum production. No wheezing. Cardiovascular: No chest pain, no lower extremity edema. No palpitations. No paroxysmal nocturnal dyspnea. No orthopnea. No lightheadedness or dizziness. No syncopal episodes. Abdominal: Slight abdominal discomfort with lack of appetite mild nausea with no vomiting no diarrhea slight constipation. Genitourinary: No dysuria, increased frequency, urgency. Decrease urine output. Musculoskeletal: No myalgias. No muscle weakness, no gait dysfunction, no frequent falls. No back pain. No neck pain. Integumentary: No wounds, no lesions. No rash or pruritus. No unusual bruising. No change in hair or nails. Neurologic: No dysphagia no facial droop generalized fatigue tiredness and weakness no focal deficit at this point has not been moving much but his balance and gait has been off. Short-term memory deficit, confusion. Psychiatric: No depression. No anxiety. No mood swings. Endocrine: No abnormal blood sugars. No weight change. PHYSICAL EXAMINATION Gen: This is a thin 80-year-old male. He is resting in bed and appears comfortable and in no acute distress. HEENT: Head is atraumatic, normocephalic. Pupils equal, round. Sclerae is anict branden. NECK: Supple. No JVD. No lymphadenopathy. No thyromegaly. LUNGS: Clear to auscultation. No wheezes or rhonchi. No intercostal retractions. HEART: Irregular rhythm and rate is sinus to positive S3 positive JVD ABDOMEN: Soft. Bowel sounds are present. No masses. No tenderness. EXTREMITIES: No pedal edema. No calf tenderness. NEUROLOGICAL: Awake alert oriented to person, positive generalized weakness no focal deficit. ASSESSMENT AND PLAN 1. acute blood loss anemia. Patient will be transfused 2 units packed RBCs, GI consult appreciated. Patient is status post EGD and colonoscopy with suspicious large rectal polyp that was biopsied concerning for malignancy. Continue to monitor hemoglobin. Ferrlecit 3 doses has been ordered by oncology. 2. acute gastrointestinal bleed. Eliquis is on hold, continue Protonix 40 mg IV twice daily, GI status post EGD and colonoscopy. 3. Metabolic encephalopathy, no clear etiology with the severe anemia and sever e generalized weakness and fatigue possible hypertension and hypoperfusion can explain the change. 4. large thoracic aneurysm: Postrepair at [facility] back 18 month ago patient had multiple complication has been seen still I cardiothoracic surgeon regularly. 5. A. fib with RVR, paroxysmal atrial fibrillation: Pulse rates under control, patient remain on metoprolol and Eliquis will hold Eliquis for now. 6. atherosclerotic heart disease: No chest pain or angina currently. 7. Chronic diastolic heart failure. Continue Lasix, Lopressor and smaller dose of marvel. 8. significant weight loss, possibility of malignancy still very high with history of CLL with his family history of colon cancer. 9. acute kidney injury: Specially with the dehydration and hypoperfusion hydrate patient and correct blood loss and driven repeat CMP. 10 CLL: Patient white blood cells mildly elevated is not on any medication or management at this point. 11 BPH: Has been doing well on Flomax 0.4 mg daily. 12 hyperlipidemia: Continue atorvastatin at 40 mg daily. 13 chronic degenerative disc disease: Patient might require epidural injection at some point CT of the L-spine is pending at this point. 14 severe arrhythmia with sick sinus syndrome post pacemaker placement. 15. Carotid artery stenosis 50% bilaterally. Vascular consult, patient will be monitored outpatient. CODE STATUS: Full code DISCHARGE PLAN on Wednesday Impression and plan of care have been directed as dictated by the signing physician. Nathalia Frausto nurse practitioner acting as scribe for signing physician. Objective - Vital Signs Vital signs: Vital Signs Temp 98.5 F 04/05/21 04:59 Pulse 51 L 04/05/21 04:59 Resp 16 04/05/21 04:59 BP 98/58 04/05/21 04:59 Pulse Ox 98 04/05/21 04:59 Intake & Output 04/04/21 04/05/21 04/05/21 18:59 06:59 18:59 Intake Total 900 590 Output Total 200 Balance 900 390 Weight 73.028 kg Intake: Intake, IV Titration 900 Amount Sodium Chloride 0.9% 1, 900 000 ml @ 75 mls/hr IV . [id number] Rx#:[id number] Oral 590 Output: Urine 200 Other: Voiding Method Toilet Urinal Bedside Commode Urinal # Voids 2 1 - Labs CBC & Chem 7: 04/04/21 06:05 04/04/21 06:05
[2021-04-05 10:26] LABS: Anisocytosis Slight; Basophils % (A) 0 %; Eosinophils # (A) 0.1 k/uL (0-0.7); Eosinophils % (A) 1 %; HCT 27.1 % (39.0-53.0); HGB 8.6 gm/dL (13.0-17.5); Hypochromasia Marked; Lymphocytes # (A) 1.9 k/uL (1.0-4.8); Lymphocytes % (A) 14 %; MCH 27.3 pg (25.0-35.0); MCHC 31.6 g/dL (31.0-37.0); MCV 86.6 fL (80.0-100.0); Mean Platelet Volume 8.8; Monocytes # (A) 0.4 k/uL (0-1.0); Monocytes % (A) 3 %; Neutrophils # (A) 10.9 k/uL (1.3-7.7); Neutrophils % (A) 79 %; Platelet Count 178 k/uL (150-450); RBC 3.13 m/uL (4.30-5.90); RDW 16.5 % (11.5-15.5); WBC 13.8 k/uL (3.8-10.6)
[2021-04-05] MEDS: polyethylene glycoL 3350 17 GM POWD.PACK PO SCH (13:20)
[2021-04-05] MEDS: SODIUM FERRIC GLUCONAT-SUCROSE 125 MG in SODIUM CHLORIDE 0.9% 100 ML IVPB SCH (13:20)
[2021-04-05] MEDS: DONEPEZIL 5 MG TAB PO SCH (20:38)
[2021-04-05] MEDS: ATORVASTATIN 40 MG TAB PO SCH (20:38)
[2021-04-05] MEDS: METOPROLOL TARTRATE 25 MG TAB PO SCH (20:38)
[2021-04-06] MEDS: TAMSULOSIN 0.4 MG CAP.ER.24H PO SCH (08:38)
[2021-04-06] MEDS: PANTOPRAZOLE 40 MG/10 ML VIAL IVP SCH ×2 (08:38→21:43)
[2021-04-06] MEDS: MAGNESIUM OXIDE 400 MG TAB PO SCH ×2 (08:38→21:40)
[2021-04-06] MEDS: FUROSEMIDE 40 MG TAB PO SCH (08:38)
[2021-04-06 10:13] LABS: Anisocytosis Slight; HCT 28.9 % (39.0-53.0); HGB 9.1 gm/dL (13.0-17.5); Hypochromasia Marked; MCH 27.4 pg (25.0-35.0); MCHC 31.3 g/dL (31.0-37.0); MCV 87.5 fL (80.0-100.0); Mean Platelet Volume 8.5; Platelet Count 159 k/uL (150-450); RBC 3.31 m/uL (4.30-5.90); RDW 16.7 % (11.5-15.5); WBC 20.8 k/uL (3.8-10.6)
--- NOTE | 2021-04-06 11:01 | P.PN ---
Subjective Progress Note Date: 04/06/21 HISTORY OF PRESENT ILLNESS 80-year-old male one of my office patient is known to have history of atherosclerotic heart disease, large thoracic aneurysm postrepair at [facility] over 2 years ago with multiple complication consistent with excessive bleeding, postsurgical bleed, severe arrhythmia post pacemaker, A. fib with RVR, anemia require multiple units of blood transfusion, history of TIA and possible stroke along with hypoxic encephalopathy, debility require extended physical therapy for long time. Patient has been seen last few weeks for recurrent back pain he was seen at the for possible epidural injection and was waiting for CT of the lumbar spine to decide on pain management. Patient apparently developed in the last 10 days to have much worsening dec lining condition along with significant weight loss fatigue tiredness not acting himself developed to have significant memory loss not been able to move himself out of bed and become a lot worse. Ended up seen in the office had some blood work showed his hemoglobin significantly decreased to 6.9 from almost above 11. Patient was sent to the emergency department at [facility] for possible active acute GI bleed his hemoglobin came back in below 7. Hemoccult was positive patient be seen gastroenterology no lower abdominal pain but has been having slight upper abdominal discomfort on and off. Also patient has been on Eliquis 2.5 g twice a day for A. fib patient has been taking it is still on iron. Patient also is known to have history of CLL was seen hematology over a year ago and his W BC still in the low teen did not require much help at that time or any management. When seen patient and his apparently has not been moving out of bed has been more tired fatigue not acting himself and the has noticed significant change in mental status along with memory. Patient does not remember having any black stools or tarry stools no bright red blood per rectum. His appetite has been significantly down from before. Patient had refused to go for colonoscopy previously had coloGuarded done over a year ago came back negative patient is known to have family history of colon cancer but he absolutely refuses to go for colonoscopy earlier. 04/02: Patient has been seen by GI with plan for EGD and colonoscopy tomorrow which patient was agreeable to. Patient is very confused and staff and will ensure that he gets his prep done and completed. Neurology has been added for mental status changes and [place] loss. Oncology consult regarding history of CLL. The patient remains afebrile, heart rate 69, blood pressure 108/57, pulse ox 99% on room air. WBC 14.2, hemoglobin 7.2 completely from 236. Electrolytes and renal function normal. AST 41. Patient is obtaining 750 ML on incentive spirometry. staffing specialist is atrial fibrillation with controlled rate. Disch arge plan is for discharge to [facility] for subacute rehab. 04/03: Patient had a drop in hemoglobin is 6.6 and has been ordered for transfusion of 2 units packed RBCs. Carotid ultrasound revealed 50% stenosis in the bilateral ICA and consult added for vascular surgery. They have advised that concerns regarding the AAA graft will need to be addressed by the tertiary care physician the perform the procedure. Patient is been seen by oncology and CLL seems to be at near baseline. Patient has not done well taking prep and has not been cleared for colonoscopy and EGD which most likely will be postponed until tomorrow. He has been afebrile, heart rate 67, blood pressure 105/59, pulse ox 99% on room air. LDH 339. Uric acid 8.4. Vitamin B12 1609 iron 16, TIBC 228, iron saturation 7.02, ferritin 178.2. 04/04: Patient is status post EGD and colonoscopy yesterday with findings of esophagitis, and a large rectal polyp that was biopsied. No acute changes through the night. He is currently tolerating a full liquid diet. Hemoglobin is stable at 8.6 after 2 units of PRBC transfusion. He denies any abdominal pain, rectal bleeding, nausea or vomiting. Patient remains pleasantly confused. Patient has been seen by neurology. EEG reveals [id number] toxic metabolic encephalopathy due to diffuse structural brain abnormality. We will start the patient on Aricept. Patient has been seen and followed by neurology. Other lab work reveals WBC is 17.9, platelet count of 224. Chloride is 111 otherwise electrolytes and renal function are normal. Blood sugar 126. Total bilirubin 1.4 and liver function tests normal. IgG 1150. Methylmalonic acid level is pending. Patient has worked with PT and OT with recommendations for subacute rehab. We'll plan for discharge to [facility] on Wednesday. 04/05: Repeat hemoglobin today is at 8.6 after 2 units of packed RBCs. WBC 17.9, platelet count 224. Sodium 139, potassium 3.8, chloride 111, CO2 23, BUN 16 and creatinine 1.03. Total bilirubin 1.4 liver function tests normal. He has been afebrile, heart rate 51, blood pressure 98/58, pulse ox 98% on room air. The patient is continued on Ferrlecit which is ordered for 3 doses which will be completed tomorrow. Patient also was started on Aricept by us for dementia. Patient remains pleasantly confused. He denies any nausea and no abdominal pain. He does have some lightheadedness and dizziness. B12 level and TSH to be checked. We will plan to continue to monitor hemoglobin and transfuse as necessary. Discharge plan remains for [facility] on Wednesday. 04/06: 10 has been afebrile, heart rate 72, blood pressure 140/72, pulse ox 90% on room air. Repeat CBC reveals hemoglobin 9.1, WBC 20.8, platelet count 159. Patient remains pleasantly confused. Patient will be discharged to [facility] on Wednesday. REVIEW OF SYSTEMS Constitutional: No fever, no chills, no night sweats. Significant weight loss, weakness, fatigue, lethargy and daytime sleeping. EENT: No headache. No blurred vision or double vision, no loss of vision. No loss of Hearing, no ringing in the ears, no dizziness. No nasal drainage or congestion. No epistaxis. No sore throat. Lungs: No shortness of breath, cough, no sputum production. No wheezing. Cardiovascular: No chest pain, no lower extremity edema. No palpitations. No paroxysmal nocturnal dyspnea. No orthopnea. No lightheadedness or dizziness. No syncopal episodes. Abdominal: No abdominal discomfort with lack of appetite no nausea with no vomiting no diarrhea slight constipation. Genitourinary: No dysuria, increased frequency, urgency. Decrease urine output. Musculoskeletal: No myalgias. No muscle weakness, no gait dysfunction, no frequent falls. No back pain. No neck pain. Integumentary: No wounds, no lesions. No rash or pruritus. No unusual bruising. No change in hair or nails. Neurologic: No dysphagia no facial droop generalized fatigue tiredness and weakness no focal deficit at this point has not been moving much but his balance and gait has been off. Short-term memory deficit, confusion. Psychiatric: No depression. No anxiety. No mood swings. Endocrine: No abnormal blood sugars. No weight change. PHYSICAL EXAMINATION Gen: This is a thin 80-year-old male. He is resting in bed and appears comfortable and in no acute distress. HEENT: Head is atraumatic, normocephalic. Pupils equal, round. Sclerae is anicteric. NECK: Supple. No JVD. No lymphadenopathy. No thyromegaly. LUNGS: Clear to auscultation. No wheezes or rhonchi. No intercostal retractions. HEART: Irregular rhythm and rate is sinus to positive S3 positive JVD ABDOMEN: Soft. Bowel sounds are present. No masses. No tenderness. EXTREMITIES: No pedal edema. No calf tenderness. NEUROLOGICAL: Awake alert oriented to person, positive generalized weakness no focal deficit. ASSESSMENT AND PLAN 1. Acute blood loss anemia. Patient will be transfused 2 units packed RBCs, GI consult appreciated. Patient is status post EGD and colonoscopy with suspicious large rectal polyp that was biopsied concerning for malignancy. Continue to monitor hemoglobin. Ferrlecit 3 doses has been ordered by oncology. 2. Acute gastrointestinal bleed. Eliquis is on hold, continue Protonix 40 mg IV twice daily, GI status post EGD and colonoscopy. 3. Metabolic encephalopathy, no clear etiology with the severe anemia and severe generalized weakness and fatigue possible hypertension and hypoperfusion can explain the change. 4. Large thoracic aneurysm: Postrepair at [facility] back 18 month ago patient had multiple complication has been seen still I cardiothoracic surgeon regularly. 5. A. fib with RVR, paroxysmal atrial fibrillation: Pulse rates under control, patient remain on metoprolol and Eliquis will hold Eliquis for now. 6. Atherosclerotic heart disease: No chest pain or angina currently. 7. Chronic diastolic heart failure. Continue Lasix, Lopressor and smaller dose of marvel. 8. Significant weight loss, possibility of malignancy still very high with history of CLL with his family history of colon cancer. 9. Acute kidney injury: Specially with the dehydration and hypoperfusion hydrate patient and correct blood loss and driven repeat CMP. 10. CLL: Patient white blood cells mildly elevated is not on any medication or management at this point. 11. BPH: Has been doing well on Flomax 0.4 mg daily. 12. Hyperlipidemia: Continue atorvastatin at 40 mg daily. 13. Chronic degenerative disc disease: Patient might require epidural injection at some point CT of the L-spine is pending at this point. 14. Severe arrhythmia with sick sinus syndrome post pacemaker placement. 15. Carotid artery stenosis 50% bilaterally. Vascular consult, patient will be monitored outpatient. CODE STATUS: Full code DISCHARGE PLAN on Wednesday Impression and plan of care have been directed as dictated by the signing physician. Nathalia Frausto nurse practitioner acting as scribe for signing physician. Objective - Vital Signs Vital signs: Vital Signs Temp 98.4 F 04/06/21 05:00 Pulse 72 04/06/21 05:00 Resp 16 04/06/21 05:00 BP 140/72 04/06/21 05:00 Pulse Ox 98 04/06/21 05:00 Intake & Output 04/05/21 04/06/21 04/06/21 18:59 06:59 18:59 Intake Total 590 Output Total 550 200 Balance -550 390 Intake: Oral 590 Output: Urine 550 200 Other: Voiding Method Urinal Toilet Urinal # Voids 3 - Labs CBC & Chem 7: 04/06/21 08:20 04/04/21 06:05 Labs: Abnormal Lab Results - Last 24 Hours (Table) 04/05/21 Range/Units 09:03 WBC 13.8 H (3.8-10.6) k/uL RBC 3.13 L (4.30-5.90) m/uL Hgb 8.6 L (13.0-17.5) gm/dL Hct 27.1 L (39.0-53.0) % RDW 16.5 H (11.5-15.5) % Neutrophils # 10.9 H (1.3-7.7) k/uL
--- NOTE | 2021-04-06 11:06 | P.DS ---
Providers Date of admission: 04/01/21 13:19 Expected date of discharge: 04/07/21 Attending physician: Lucio Avila Consults: 04/01/21 13:36 Consult Physician Routine Consulting Provider: Austin Wong Consult Reason/Comments: GI bleed anemia on eliquis Do you want consulting provider notified?: Yes 04/02/21 09:53 Consult Physician Routine Consulting Provider: Srinivasa Pugh Consult Reason/Comments: mental status change and memory loss Do you want consulting provider notified?: Yes Consult Physician Routine Consulting Provider: Talon Henriquez Consult Reason/Comments: cll, anemia Do you want consulting provider notified?: Yes 04/03/21 09:34 Consult Physician Routine Consulting Provider: Eri Landrum Consult Reason/Comments: 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 Course: HISTORY OF PRESENT ILLNESS 80-year-old male one of my office patient is known to have history of atherosclerotic heart disease, large thoracic aneurysm postrepair at [facility] over 2 years ago with multiple complication consistent with excessive bleeding, postsurgical bleed, severe arrhythmia post pacemaker, A. fib with RVR, anemia require multiple units of blood transfusion, history of TIA and possible stroke along with hypoxic encephalopathy, debility require extended physical therapy for long time. Patient has been seen last few weeks for recurrent back pain he was seen at the for possible epidural injection and was waiting for CT of the lumbar spine to decide on pain management. Patient apparently developed in the last 10 days to have much worsening declining condition along with significant weight loss fatigue tiredness not acting himself developed to have significant memory loss not been able to move himself out of bed and become a lot worse. Ended up seen in the office had some blood work showed his hemoglobin significantly decreased to 6.9 from almost above 11. Patient was sent to the emergency department at [facility] for possible active acute GI bleed his hemoglobin came back in below 7. Hemoccult was positive patient be seen gastroenterology no lower abdominal pain but has been having slight upper abdominal discomfort on and off. Also patient has been on Eliquis 2.5 g twice a day for A. fib patient has been taking it is still on iron. Patient also is known to have history of CLL was seen hematology over a year ago and his W BC still in the low teen did not require much help at that time or any management. When seen patient and his apparently has not been moving out of bed has been more tired fatigue not acting himself and the has noticed significant change in mental status along with memory. Patient does not remember having any black stools or tarry stools no bright red blood per rectum. His appetite has been significantly down from before. Patient had refused to go for colonoscopy previously had coloGuarded done over a year ago came back negative patient is known to have family history of colon cancer but he absolutely refuses to go for colonoscopy earlier. 04/02: Patient has been seen by GI with plan for EGD and colonoscopy tomorrow which patient was agreeable to. Patient is very confused and staff and will ensure that he gets his prep done and completed. Neurology has been added for mental status changes and [place] loss. Oncology consult regarding history of CLL. The patient remains afebrile, heart rate 69, blood pressure 108/57, pulse ox 99% on room air. WBC 14.2, hemoglobin 7.2 completely from 236. Electrolytes and renal function normal. AST 41. Patient is obtaining 750 ML on incentive spirometry. cardiac monitor is atrial fibrillation with controlled rate. Discharge plan is for discharge to [facility] for subacute rehab. 04/03: Patient had a drop in hemoglobin is 6.6 and has been ordered for transfusion of 2 units packed RBCs. Carotid ultrasound revealed 50% stenosis in the bilateral ICA and consult added for vascular surgery. They have advised that concerns regarding the AAA graft will need to be addressed by the tertiary care physician the perform the procedure. Patient is been seen by oncology and CLL seems to be at near baseline. Patient has not done well taking prep and has not been cleared for colonoscopy and EGD which most likely will be postponed until tomorrow. He has been afebrile, heart rate 67, blood pressure 105/59, pulse ox 99% on room air. LDH 339. Uric acid 8.4. Vitamin B12 1609 iron 16, TIBC 228, iron saturation 7.02, ferritin 178.2. 04/04: Patient is status post EGD and colonoscopy yesterday with findings of esophagitis, and a large rectal polyp that was biopsied. No acute changes through the night. He is currently tolerating a full liquid diet. Hemoglobin is stable at 8.6 after 2 units of PRBC transfusion. He denies any abdominal pain, rectal bleeding, nausea or vomiting. Patient remains pleasantly confused. Patient has been seen by neurology. EEG reveals [id number] toxic metabolic encephalopathy due to diffuse structural brain abnormality. We will start the patient on Aricept. Patient has been seen and followed by neurology. Other lab work reveals WBC is 17.9, platelet count of 224. Chloride is 111 otherwise electrolytes and renal function are normal. Blood sugar 126. Total bilirubin 1.4 and liver function tests normal. IgG 1150. Methylmalonic acid level is pending. Patient has worked with PT and OT with recommendations for subacute rehab. We'll plan for discharge to [facility] on Wednesday. 04/05: Repeat hemoglobin today is at 8.6 after 2 units of packed RBCs. WBC 17.9, platelet count 224. Sodium 139, potassium 3.8, chloride 111, CO2 23, BUN 16 and creatinine 1.03. Total bilirubin 1.4 liver function tests normal. He has been afebrile, heart rate 51, blood pressure 98/58, pulse ox 98% on room air. The patient is continued on Ferrlecit which is ordered for 3 doses which will be completed tomorrow. Patient also was started on Aricept by us for dementia. Patient remains pleasantly confused. He denies any nausea and no abdominal pain. He does have some lightheadedness and dizziness. B12 level and TSH to be checked. We will plan to continue to monitor hemoglobin and transfuse as necessary. Discharge plan remains for [facility] on Wednesday. 04/06: Patient has been afebrile, heart rate 72, blood pressure 140/72, pulse ox 90% on room air. Repeat CBC reveals hemoglobin 9.1, WBC 20.8, platelet count 159. Patient remains pleasantly confused. Pathology report reveals cecal polyps with low-grade dysplasia. Hepatic flexure polyp tubular adenoma. Hepatic flexure polyp biopsy villous adenoma. Negative for high-grade dysplasia and negative for invasive malignancy. Patient will be discharged to [facility] on Wednesday. DISCHARGE DIAGNOSES 1. Acute blood loss anemia status post transfusion of 2 units of packed RBCs. Status post EGD and colonoscopy. 2. Acute gastrointestinal bleed. 3. Metabolic encephalopathy secondary to a combination of severe anemia and severe generalized weakness and fatigue possible hypertension and hypoperfusion. 4. Large thoracic aneurysm: Postrepair at [facility] back 18 month ago. 5. A. fib with RVR, paroxysmal atrial fibrillation. 6. Atherosclerotic heart disease. 7. Chronic diastolic heart failure. . 8. Significant weight loss, possibility of malignancy still very high with history of CLL with his family history of colon cancer. 9. Acute kidney injury: Specially with the dehydration and hypoperfusion 10. CLL 11. BPH 12. Hyperlipidemia 13. Chronic degenerative disc disease 14. Severe arrhythmia with sick sinus syndrome post pacemaker placement. 15. Carotid artery stenosis 50% bilaterally. DISCHARGE PLAN on Wednesday Impression and plan of care have been directed as dictated by the signing physician. Nathalia Frausto nurse practitioner acting as scribe for signing physician. Plan - Discharge Summary New Discharge Prescriptions: New Donepezil [Aricept] 5 mg PO HS tab Continue Atorvastatin [Lipitor] 40 mg PO HS bisacodyL [Dulcolax] 5 mg PO HS PRN PRN Reason: Constipation Polyethylene Glycol 3350 [Miralax] 17 gm PO DAILY@1200 Magnesium Oxide [Gomez] 500 mg PO BID Metoprolol Tartrate [Lopressor] 25 mg PO HS Melatonin 6 mg PO HS PRN PRN Reason: Insomnia Nystatin 100,000Unit/gm Cream [Mycostatin Cream] 1 applic TOPICAL BID PRN PRN Reason: RASH GROIN Menthol [Biofreeze] 1 applic TOPICAL HS PRN PRN Reason: BACK PAIN Acetaminophen [Tylenol] 325 mg PO Q4H PRN PRN Reason: Pain Or Fever > 100.5 Multivitamins, Thera [Multivitamin (formulary)] 1 tab PO HS Furosemide [Lasix] 40 mg PO DAILY Tamsulosin HCl [Flomax] 0.4 mg PO DAILY Changed Pantoprazole Sodium 40 mg PO BID #0 Discontinued Aspirin 81 mg PO DAILY Apixaban [Eliquis] 2.5 mg PO BID Discharge Medication List Atorvastatin [Lipitor] 40 mg PO HS 05/19/19 [History] Acetaminophen [Tylenol] 325 mg PO Q4H PRN 04/01/21 [History] Furosemide [Lasix] 40 mg PO DAILY 04/01/21 [History] Magnesium Oxide [Gomez] 500 mg PO BID 04/01/21 [History] Melatonin 6 mg PO HS PRN 04/01/21 [History] Menthol [Biofreeze] 1 applic TOPICAL HS PRN 04/01/21 [History] Metoprolol Tartrate [Lopressor] 25 mg PO HS 04/01/21 [History] Multivitamins, Thera [Multivitamin (formulary)] 1 tab PO HS 04/01/21 [History] Nystatin 100,000Unit/gm Cream [Mycostatin Cream] 1 applic TOPICAL BID PRN 04/01/21 [History] Polyethylene Glycol 3350 [Miralax] 17 gm PO DAILY@1200 04/01/21 [History] Tamsulosin HCl [Flomax] 0.4 mg PO DAILY 04/01/21 [History] bisacodyL [Dulcolax] 5 mg PO HS PRN 04/01/21 [History] Donepezil [Aricept] 5 mg PO HS tab 04/06/21 [Rx] Pantoprazole Sodium 40 mg PO BID #0 04/06/21 [Rx] Follow up Appointment(s)/Referral(s): Ruth Fox MD [STAFF PHYSICIAN] - 4 Weeks (Call Office for biopsy results next week, will need to possibly repeat colonoscopy in 3-6 months) [facility], [NON-STAFF] - 1-2 Days Lucio Avila MD [Primary Care Provider] - 1 Week ([facility]) Discharge Disposition: TRANSFER TO SNF/ECF
[2021-04-06] MEDS: polyethylene glycoL 3350 17 GM POWD.PACK PO SCH (12:07)
[2021-04-06] MEDS: SODIUM FERRIC GLUCONAT-SUCROSE 125 MG in SODIUM CHLORIDE 0.9% 100 ML IVPB SCH (12:42)
--- NOTE | 2021-04-06 12:44 | P.PN ---
Subjective Progress Note Date: 04/05/21 04/05/2021: This is a tele-neurology follow-up performed today on 04/05/2021. Patient's was also present today. She states that he is doing better today. Typically in the evening he gets worse. Sometimes he thinks he is in [place] Patient had significantly low hemoglobin 6.6 for which he received 2 units of blood. He underwent EGD and colonoscopy, which revealed LA grade B distal esophagitis. No active bleeding or old blood noted. Large pedunculated tubovillous appearing hepatic flexure polyp removed with heart snare polypectomy. Cold snare polypectomy of 2 polyps from the cecum and one from the hepatic flexure. Moderate pandiverticulosis. Protonix was recommended. Pathology revealed tubular adenoma. Paulette will S adenoma. Negative for diagnostic high-grade dysplasia and negative for invasive malignancy. Patient denies any symptoms. No focal symptoms. Objective - Vital Signs Vital signs: Vital Signs Temp 98.4 F 04/06/21 05:00 Pulse 72 04/06/21 05:00 Resp 16 04/06/21 05:00 BP 140/72 04/06/21 05:00 Pulse Ox 98 04/06/21 05:00 Intake & Output 04/05/21 04/06/21 04/06/21 18:59 06:59 18:59 Intake Total 590 Output Total 550 200 Balance -550 390 Intake: Oral 590 Output: Urine 550 200 Other: Voiding Method Urinal Toilet Urinal Urinal Diaper # Voids 3 2 - Exam On examination patient is alert and awake. Patient knows he is in [place] in [place]. He knows his name and that is in [facility]. He knows it is summer season but could not tell the month. He knows Mr. Beth is the president and thinks the year is 1918. Speech and language functions are normal. Muscle strength appears normal. No ataxia. - Labs CBC & Chem 7: 04/06/21 08:20 04/04/21 06:05 Labs: Abnormal Lab Results - Last 24 Hours (Table) 04/06/21 Range/Units 08:20 WBC 20.8 H (3.8-10.6) k/uL RBC 3.31 L (4.30-5.90) m/uL Hgb 9.1 L (13.0-17.5) gm/dL Hct 28.9 L (39.0-53.0) % RDW 16.7 H (11.5-15.5) % Assessment and Plan Assessment: * Altered mental status, possible delirium. Cannot rule out underlying cognitive impairment. * Acute anemia with positive occult blood, unclear cause. * Atrial fibrillation, currently on anticoagulation with Apixaban 2.5 mg twice a day. * History of moderate left ICA stenosis * Mild renal insufficiency, likely due to dehydration, improved now. Plan: * Carotid Doppler, revealed antegrade flow in both vertebral arteries. The images in measurement suggest less than 50% stenosis in both ICA. There is bilateral plaque formation. * B12 1609, folate 17.9, TSH 3.31, MMA 0.21, all normal. * EEG was abnormal due to background slowing of mild to moderate degree. This is suggestive of generalized cerebral dysfunction as can be seen with toxic metabolic encephalopathy or due to diffuse structural brain abnormality. No epileptiform activity was seen. * Patient's was recommended for patient to be seen by a neurologist as an outpatient in one month if the mental status change continues to be altered, to rule out underlying cognitive impairment. At this time I would not initiate any cognitive enhancing medication. * We will sign off, please reconsult neurology if any concerns.
[2021-04-06] MEDS: SODIUM CHLORIDE 0.9% 1,000 ML IV SCH (15:16)
[2021-04-06 20:05] VITALS: RESP 16
[2021-04-06] MEDS: DONEPEZIL 5 MG TAB PO SCH (21:40)
[2021-04-06] MEDS: ATORVASTATIN 40 MG TAB PO SCH (21:40)
[2021-04-06] MEDS: METOPROLOL TARTRATE 25 MG TAB PO SCH (21:44)
[2021-04-07] MEDS: SODIUM CHLORIDE 0.9% 1,000 ML IV SCH (03:05)
[2021-04-07 08:02] LABS: Anisocytosis Slight; Basophils % (A) 0 %; Eosinophils % (A) 0 %; HCT 24.3 % (39.0-53.0); Hypochromasia Moderate; Lymphocytes # (A) 2.6 k/uL (1.0-4.8); Lymphocytes % (A) 15 %; MCH 27.9 pg (25.0-35.0); MCV 84.5 fL (80.0-100.0); Mean Platelet Volume 7.7; Monocytes # (A) 0.5 k/uL (0-1.0); Monocytes % (A) 3 %; Neutrophils # (A) 13.7 k/uL (1.3-7.7); Neutrophils % (A) 78 %; Platelet Count 159 k/uL (150-450); RBC 2.88 m/uL (4.30-5.90); RDW 17.4 % (11.5-15.5); WBC 17.6 k/uL (3.8-10.6)
[2021-04-07] MEDS: MAGNESIUM OXIDE 400 MG TAB PO SCH (08:04)
[2021-04-07] MEDS: FUROSEMIDE 40 MG TAB PO SCH (08:04)
[2021-04-07] MEDS: PANTOPRAZOLE 40 MG/10 ML VIAL IVP SCH (08:04)
[2021-04-07] MEDS: TAMSULOSIN 0.4 MG CAP.ER.24H PO SCH (08:04)
[2021-04-07 11:34] VITALS: BP 142/77; PULSE 86; TEMP 97.9
[2021-04-07] MEDS: polyethylene glycoL 3350 17 GM POWD.PACK PO SCH (11:35)
[2021-04-07 12:02] LABS: African American GFR (CKD) 93.8 (60.0-200.0); Albumin 2.5 g/dL (3.80-4.90); Anion Gap 5.3 mmol/L (4.00-12.00); BUN/Creat Ratio 14.44 Ratio (12.00-20.00); Calcium 7.9 mg/dL (8.7-10.3); Carbon Dioxide 23.7 mmol/L (21.6-31.8); Globulin 2.5 g/dL (1.6-3.3); Non-African American GFR(CKD) 80.9 (60.0-200.0); Potassium 3.8 mmol/L (3.5-5.5); Total Bilirubin 1.4 mg/dL (0.2-1.2)
--- NOTE | 2021-04-07 14:24 | P.PN ---
Subjective Progress Note Date: 04/07/21 HISTORY OF PRESENT ILLNESS 80-year-old male one of my office patient is known to have history of atherosclerotic heart disease, large thoracic aneurysm postrepair at [facility] over 2 years ago with multiple complication consistent with excessive bleeding, postsurgical bleed, severe arrhythmia post pacemaker, A. fib with RVR, anemia require multiple units of blood transfusion, history of TIA and possible stroke along with hypoxic encephalopathy, debility require extended physical therapy for long time. Patient has been seen last few weeks for recurrent back pain he was seen at the for possible epidural injection and was waiting for CT of the lumbar spine to decide on pain management. Patient apparently developed in the last 10 days to have much worsening dec lining condition along with significant weight loss fatigue tiredness not acting himself developed to have significant memory loss not been able to move himself out of bed and become a lot worse. Ended up seen in the office had some blood work showed his hemoglobin significantly decreased to 6.9 from almost above 11. Patient was sent to the emergency department at [facility] for possible active acute GI bleed his hemoglobin came back in below 7. Hemoccult was positive patient be seen gastroenterology no lower abdominal pain but has been having slight upper abdominal discomfort on and off. Also patient has been on Eliquis 2.5 g twice a day for A. fib patient has been taking it is still on iron. Patient also is known to have history of CLL was seen hematology over a year ago and his W BC still in the low teen did not require much help at that time or any management. When seen patient and his apparently has not been moving out of bed has been more tired fatigue not acting himself and the has noticed significant change in mental status along with memory. Patient does not remember having any black stools or tarry stools no bright red blood per rectum. His appetite has been significantly down from before. Patient had refused to go for colonoscopy previously had coloGuarded done over a year ago came back negative patient is known to have family history of colon cancer but he absolutely refuses to go for colonoscopy earlier. 04/02: Patient has been seen by GI with plan for EGD and colonoscopy tomorrow which patient was agreeable to. Patient is very confused and staff and will ensure that he gets his prep done and completed. Neurology has been added for mental status changes and [place] loss. Oncology consult regarding history of CLL. The patient remains afebrile, heart rate 69, blood pressure 108/57, pulse ox 99% on room air. WBC 14.2, hemoglobin 7.2 completely from 236. Electrolytes and renal function normal. AST 41. Patient is obtaining 750 ML on incentive spirometry. pvc monitor is atrial fibrillation with controlled rate. Disch arge plan is for discharge to [facility] for subacute rehab. 04/03: Patient had a drop in hemoglobin is 6.6 and has been ordered for transfusion of 2 units packed RBCs. Carotid ultrasound revealed 50% stenosis in the bilateral ICA and consult added for vascular surgery. They have advised that concerns regarding the AAA graft will need to be addressed by the tertiary care physician the perform the procedure. Patient is been seen by oncology and CLL seems to be at near baseline. Patient has not done well taking prep and has not been cleared for colonoscopy and EGD which most likely will be postponed until tomorrow. He has been afebrile, heart rate 67, blood pressure 105/59, pulse ox 99% on room air. LDH 339. Uric acid 8.4. Vitamin B12 1609 iron 16, TIBC 228, iron saturation 7.02, ferritin 178.2. 04/04: Patient is status post EGD and colonoscopy yesterday with findings of esophagitis, and a large rectal polyp that was biopsied. No acute changes through the night. He is currently tolerating a full liquid diet. Hemoglobin is stable at 8.6 after 2 units of PRBC transfusion. He denies any abdominal pain, rectal bleeding, nausea or vomiting. Patient remains pleasantly confused. Patient has been seen by neurology. EEG reveals [id number] toxic metabolic encephalopathy due to diffuse structural brain abnormality. We will start the patient on Aricept. Patient has been seen and followed by neurology. Other lab work reveals WBC is 17.9, platelet count of 224. Chloride is 111 otherwise electrolytes and renal function are normal. Blood sugar 126. Total bilirubin 1.4 and liver function tests normal. IgG 1150. Methylmalonic acid level is pending. Patient has worked with PT and OT with recommendations for subacute rehab. We'll plan for discharge to [facility] on Wednesday. 04/05: Repeat hemoglobin today is at 8.6 after 2 units of packed RBCs. WBC 17.9, platelet count 224. Sodium 139, potassium 3.8, chloride 111, CO2 23, BUN 16 and creatinine 1.03. Total bilirubin 1.4 liver function tests normal. He has been afebrile, heart rate 51, blood pressure 98/58, pulse ox 98% on room air. The patient is continued on Ferrlecit which is ordered for 3 doses which will be completed tomorrow. Patient also was started on Aricept by us for dementia. Patient remains pleasantly confused. He denies any nausea and no abdominal pain. He does have some lightheadedness and dizziness. B12 level and TSH to be checked. We will plan to continue to monitor hemoglobin and transfuse as necessary. Discharge plan remains for [facility] on Wednesday. 04/06: Patient has been afebrile, heart rate 72, blood pressure 140/72, pulse ox 90% on room air. Repeat CBC reveals hemoglobin 9.1, WBC 20.8, platelet count 159. Patient remains pleasantly confused. Pathology report reveals cecal polyps with low-grade dysplasia. Hepatic flexure polyp tubular adenoma. Hepatic flexure polyp biopsy villous adenoma. Negative for high-grade dysplasia and negative for invasive malignancy. Patient will be discharged to [facility] on Wednesday. 04/07: Patient is still at baseline, awaiting transfer to [facility] which have been today, hemoglobin stable at 8.0, tubular adenoma with villous adenoma noted on biopsy, Colonoscopy short-term per GI, negative for malignancy noted, or high-grade dysplasia. REVIEW OF SYSTEMS Constitutional: No fever, no chills, no night sweats. Significant weight loss, weakness, fatigue, lethargy and daytime sleeping. EENT: No headache. No blurred vision or double vision, no loss of vision. No loss of Hearing, no ringing in the ears, no dizziness. No nasal drainage or congestion. No epistaxis. No sore throat. Lungs: No shortness of breath, cough, no sputum production. No wheezing. Cardiovascular: No chest pain, no lower extremity edema. No palpitations. No paroxysmal nocturnal dyspnea. No orthopnea. No lightheadedness or dizziness. No syncopal episodes. Abdominal: No abdominal discomfort with lack of appetite no nausea with no vomiting no diarrhea slight constipation. Genitourinary: No dysuria, increased frequency, urgency. Decrease urine output. Musculoskeletal: No myalgias. No muscle weakness, no gait dysfunction, no frequent falls. No back pain. No neck pain. Integumentary: No wounds, no lesions. No rash or pruritus. No unusual bruising. No change in hair or nails. Neurologic: No dysphagia no facial droop generalized fatigue tiredness and weakness no focal deficit at this point has not been moving much but his balance and gait has been off. Short-term memory deficit, confusion. Psychiatric: No depression. No anxiety. No mood swings. Endocrine: No abnormal blood sugars. No weight change. Objective - Vital Signs Vital signs: Vital Signs Temp 97.9 F 04/07/21 11:09 Pulse 86 04/07/21 11:09 Resp 16 04/07/21 05:00 BP 142/77 04/07/21 11:09 Pulse Ox 98 04/07/21 11:09 Intake & Output 04/06/21 04/07/21 04/07/21 18:59 06:59 18:59 Intake Total 450 1200 Balance 450 1200 Intake: Intake, IV Titration 900 Amount Sodium Chloride 0.9% 1, 900 000 ml @ 75 mls/hr IV . [id number] [facility] Rx#:[id number] Oral 450 300 Other: Voiding Method Urinal Urinal Urinal Diaper Diaper Diaper # Voids 7 2 1 # Bowel Movements 1 - Constitutional General appearance: Present: cooperative, no acute distress - EENT Eyes: Present: EOMI, PERRLA, dentition normal, normal appearance ENT: Present: NA/AT, normal oropharynx - Neck Neck: Present: normal ROM - Respiratory Respiratory: bilateral: CTA, negative: diminished, dullness - Cardiovascular Rhythm: regular Heart sounds: normal: S1, S2 Abnormal Heart Sounds: Absent: systolic murmur, diastolic murmur, rub, S3 Gallop , S4 Gallop, click, other - Gastrointestinal General gastrointestinal: Present: normal bowel sounds, soft - Integumentary Integumentary: Present: normal - Neurologic Neurologic: Present: CNII-XII intact - Musculoskeletal Musculoskeletal: Present: generalized weakness, strength equal bilaterally - Psychiatric Psychiatric: Present: A&O x's 3, appropriate affect - Labs CBC & Chem 7: 04/07/21 07:32 04/07/21 07:32 Labs: Abnormal Lab Results - Last 24 Hours (Table) 04/07/21 04/07/21 Range/Units 07:32 07:32 WBC 17.6 H (3.8-10.6) k/uL RBC 2.88 L (4.30-5.90) m/uL Hgb 8.0 L (13.0-17.5) gm/dL Hct 24.3 L (39.0-53.0) % RDW 17.4 H (11.5-15.5) % Neutrophils # 13.7 H (1.3-7.7) k/uL Chloride 111 H (96-109) mmol/L Glucose 117 H (70-110) mg/dL Calcium 7.9 L (8.7-10.3) mg/dL Total Bilirubin 1.4 H (0.2-1.2) mg/dL Total Protein 5.0 L (6.2-8.2) g/dL Albumin 2.50 L (3.80-4.90) g/dL Albumin/Globulin Ratio 1.00 L (1.60-3.17) g/dL Assessment and Plan Plan: ASSESSMENT AND PLAN 1. Acute blood loss anemia probably could be doable upper GI as well as lower GI, no acute bleeding noted in the upper GI, based on EGD has multiple polyps and colonoscopy. Patient will be transfused 2 units packed RBCs, GI consult appreciated. Patient is status post EGD and colonoscopy with suspicious large rectal polyp that was biopsied concerning for malignancy pathology would be villous adenoma and tubular adenoma low-grade dysplasia, follow-up as outpatient,. Continue to monitor hemoglobin. Ferrlecit 3 doses has been ordered by oncology. Gastrology has recommended follow-up colonoscopy in 3-[facility] 2. Acute gastrointestinal bleed. Eliquis is on hold, continue Protonix 40 mg IV twice daily, GI status post EGD and colonoscopy. 3. Metabolic encephalopathy, no clear etiology with the severe anemia and severe generalized weakness and fatigue possible hypertension and hypoperfusion can explain the change. 4. Large thoracic aneurysm: Postrepair at [facility] back 18 month ago patient had multiple complication has been seen still I cardiothoracic surgeon regularly. 5. A. fib with RVR, paroxysmal atrial fibrillation: Pulse rates under control, patient remain on metoprolol and Eliquis will hold Eliquis for now. 6. Atherosclerotic heart disease: No chest pain or angina currently. 7. Chronic diastolic heart failure. Continue Lasix, Lopressor and smaller dose of marvel. 8. Significant weight loss, possibility of malignancy still very high with history of CLL with his family history of colon cancer. 9. Acute kidney injury: Specially with the dehydration and hypoperfusion hydrate patient and correct blood loss and driven repeat CMP. 10. CLL: Patient white blood cells mildly elevated is not on any medication or management at this point. 11. BPH: Has been doing well on Flomax 0.4 mg daily. 12. Hyperlipidemia: Continue atorvastatin at 40 mg daily. 13. Chronic degenerative disc disease: Patient might require epidural injection at some point CT of the L-spine is pending at this point. 14. Severe arrhythmia with sick sinus syndrome post pacemaker placement. 15. Carotid artery stenosis 50% bilaterally. Vascular consult, patient will be monitored outpatient. CODE STATUS: Full code
--- NOTE | 2021-04-07 14:55 | P.PN ---
Subjective Progress Note Date: 04/07/21 Principal diagnosis: Anemia, melena She was seen and examined lying in bed. He is without any complaints. No acute changes through the weekend. He is status post EGD and colonoscopy last week with a large cecal polyp status post polypectomy. Biopsy results came back showing cecal polyp Objective - Vital Signs Vital signs: Vital Signs Temp 98.5 F 04/07/21 05:00 Pulse 72 04/07/21 05:00 Resp 16 04/07/21 05:00 BP 140/74 04/07/21 05:00 Pulse Ox 91 L 04/07/21 05:00 Intake & Output 04/06/21 04/07/21 04/07/21 18:59 06:59 18:59 Intake Total 450 1200 Balance 450 1200 Intake: Intake, IV Titration 900 Amount Sodium Chloride 0.9% 1, 900 000 ml @ 75 mls/hr IV . [id number] [facility] Rx#:[id number] Oral 450 300 Other: Voiding Method Urinal Urinal Diaper Diaper # Voids 7 2 1 - Labs CBC & Chem 7: 04/07/21 07:32 04/07/21 07:32 Labs: Abnormal Lab Results - Last 24 Hours (Table) 04/06/21 04/07/21 Range/Units 08:20 07:32 WBC 20.8 H 17.6 H (3.8-10.6) k/uL RBC 3.31 L 2.88 L (4.30-5.90) m/uL Hgb 9.1 L 8.0 L (13.0-17.5) gm/dL Hct 28.9 L 24.3 L (39.0-53.0) % RDW 16.7 H 17.4 H (11.5-15.5) % Neutrophils # 13.7 H (1.3-7.7) k/uL Assessment and Plan (1) Anemia Narrative/Plan: 80-year-old male who presented to the emergency department per abnormal outp atient labs. Patient had a low hemoglobin and was told to come to the emergency department for further evaluation. Patient has multiple comorbidities and has significant coronary artery disease, atrial fibrillation taking Eliquis is currently on hold. Patient denies any previous history of GI bleed, denies any history of peptic ulcer disease. He states he does not take any NSAIDs, only Tylenol as needed for pain. He has not had a EGD or colonoscopy in the past. He did have a cold guard last year which was negative. He does have a family history of colon cancer, his brother. Patient states he's been having abdominal pain is diffuse, for the last 3 weeks duration. Denies any nausea or vomiting. He has had decreased appetite and energy. Daughter states that he has lost 12 pounds in the last week. He is unsure of blood in stool but states it may be dark. He does have a history of CLL which he was following with hematology a little over year ago. Patient did have a significant drop in his hemoglobin from a recent 11 to 7.6. Patient also had a positive occult stool. Possible etiologies could be gastrointestinal blood loss, anemia of chronic disease, or CLL. Discussed with patient and his daughter and are willing to proceed with EGD and colonoscopy. Continue to hold Eliquis, protoniX 40 mg twice a day. Patient underwent EGD and colonoscopy with findings of esophagitis and a large hepatic flexure polyp with polypectomy and Endo Clip placement/tattooing of site of polypectomy, 2 polyps removed from the cecum and one from the hepatic flexure, moderate pandiverticulosis. Current Visit: Yes Status: Acute Code(s): D64.9 - ANEMIA, UNSPECIFIED SNOMED Code(s): 838596188 (2) Fecal occult blood test positive Current Visit: Yes Status: Acute Code(s): R19.5 - OTHER FECAL ABNORMALITIES SNOMED Code(s): 14405276 (3) Atrial fibrillation with RVR Current Visit: No Status: Acute Code(s): I48.91 - UNSPECIFIED ATRIAL FIBRILLATION SNOMED Code(s): 271570642019573 Plan: 1. Continue diet as tolerated 2. Patient is status post EGD and colonoscopy 3. Discussed I am see results with patient and his who was at the bedside, Follow up in 6 months for outpatient colonoscopy Referring this consultation, patient is cleared by gastroenterology for discharge. We will sign off at this time. Dr. Janene Fox I agree with the dictator's note, documented as a scribe by Ibis Sinha.
== END 2021-04-07 16:20 | DRG 393 ==
LOC: EC 09:24 → 5NMEDONC 13:19
PROVIDERS: ADMIT Internal Medicine Geriatric Medicine; ATTEND Internal Medicine Geriatric Medicine
PROC: 0DBL8ZX Excision of Transverse Colon, Via Natural or Artificial Opening Endoscopic, Diagnostic (ICD-10-PCS; principal; 2021-04-01)
PROC: 0DBH8ZX Excision of Cecum, Via Natural or Artificial Opening Endoscopic, Diagnostic (ICD-10-PCS; 2021-04-01)
PROC: 0W3P8ZZ Control Bleeding in Gastrointestinal Tract, Via Natural or Artificial Opening Endoscopic (ICD-10-PCS; 2021-04-01)
PROC: 0DJ08ZZ Inspection of Upper Intestinal Tract, Via Natural or Artificial Opening Endoscopic (ICD-10-PCS; 2021-04-01)
PROC: 3E0H8GC Introduction of Other Therapeutic Substance into Lower GI, Via Natural or Artificial Opening Endoscopic (ICD-10-PCS; 2021-04-01)
DX: K63.5 Polyp of colon (principal); G93.41 Metabolic encephalopathy; D62 Acute posthemorrhagic anemia; C91.10 Chronic lymphocytic leukemia of B-cell type not having achieved remission; I50.32 Chronic diastolic (congestive) heart failure; N17.9 Acute kidney failure, unspecified; K57.30 Diverticulosis of large intestine without perforation or abscess without bleeding; K20.90 Esophagitis, unspecified without bleeding; I25.10 Atherosclerotic heart disease of native coronary artery without angina pectoris; I11.0 Hypertensive heart disease with heart failure; E78.5 Hyperlipidemia, unspecified; E86.0 Dehydration; F03.90 Unspecified dementia, unspecified severity, without behavioral disturbance, psychotic disturbance, mood disturbance, and anxiety; R63.4 Abnormal weight loss; G89.29 Other chronic pain; I48.0 Paroxysmal atrial fibrillation; I65.22 Occlusion and stenosis of left carotid artery; R53.1 Weakness; Z20.822 Contact with and (suspected) exposure to COVID-19; N40.0 Benign prostatic hyperplasia without lower urinary tract symptoms; Z79.01 Long term (current) use of anticoagulants; Z79.82 Long term (current) use of aspirin; Z79.899 Other long term (current) drug therapy; Z86.73 Personal history of transient ischemic attack (TIA), and cerebral infarction without residual deficits; Z86.79 Personal history of other diseases of the circulatory system; Z87.19 Personal history of other diseases of the digestive system; Z87.891 Personal history of nicotine dependence; Z95.0 Presence of cardiac pacemaker; Z95.1 Presence of aortocoronary bypass graft; Z95.2 Presence of prosthetic heart valve; Z88.8 Allergy status to other drugs, medicaments and biological substances; Z88.7 Allergy status to serum and vaccine
CPT/HCPCS: 36415; 43235; 43243; 45382; 45385; 70450; 71046; 80053; 81003; 82272; 82607; 82728; 82746; 82784; 83010; 83540; 83550; 83605; 83615; 83735; 83921; 84100; 84443; 84550; 85025; 85027; 85045; 85610; 85730; 86850; 86900; 86901; 86920; 87635; 88305; 93005; 93880; 95816; 96361; 96374; 99285